=== PATIENT | female | born 1985 | race Caucasian/White ===

== ENCOUNTER 2017-05-18 00:04 | Observation (INO) ==
[2017-05-18 03:44] LABS: Basophils % 0.2 %; Eosinophils # 0.1 K/mcL (0.0-0.6); Eosinophils % 1.2 %; Hematocrit 29.2 % (35.3-44.9); Hemoglobin 9.6 g/dL (11.5-15.4); Immature Granulocytes % 0.3 % (0-4); Lymphocytes # 1.5 K/mcL (0.6-4.6); Lymphocytes % 26.3 %; Mean Corpuscular HGB Conc 32.9 g/dL (31.6-35.5); Mean Corpuscular Hemoglobin 27.7 pg (28.0-33.3); Mean Corpuscular Volume 84.1 fL (83.0-100.0); Mean Platelet Volume 12.9 fL (9.4-12.4); Monocytes # 0.4 K/mcL (0.0-1.3); Monocytes % 6.7 %; Neutrophils # 3.8 K/mcL (1.6-8.9); Platelet Count 224 K/mcL (140-400); Red Blood Count 3.47 M/mcL (3.82-4.97); Red Cell Distribution Width 13.2 % (11.5-14.5); Segmented Neutrophils % 65.3 %
[2017-05-18 03:51] LABS: INR 1.4; Prothrombin Time 14.8 Seconds (9.4-12.1)
[2017-05-18 03:54] LABS: Activated Partial Thrombo Time 32.2 Seconds (26.0-36.0)
[2017-05-18 04:00] LABS: Calcium 8.1 mg/dL (8.6-10.8); Carbon Dioxide 20 mEq/L (19-29); Chloride 109 mEq/L (98-109); Glucose 95 mg/dL (70-99); Osmolality,Calculated 286 (280-300); Potassium 3.3 mEq/L (3.5-4.5); Sodium 140 mEq/L (136-145); eGFR For African Americans > 60 (> 60); eGFR For Non-African Americans > 60 (> 60)
[2017-05-18 04:28] LABS: BUN/Creatinine Ratio 5 (6-26)
[2017-05-18 04:29] LABS: Blood Urea Nitrogen 3 mg/dL (7-20)
--- NOTE | 2017-05-18 04:39 | Emergency Department Note ---
Disposition Clinical Impression: Endocarditis Qualifiers: Endocarditis type: infective Infective endocarditis organism: bacterial Chronicity: acute Qualified Code(s): I33.0 - Acute and subacute infective endocarditis Disposition: Admitted As Inpatient Condition: Fair General Adult HPI - General Chief complaint: ED General Medical Stated complaint: blood infection fluid around heart Time Seen by Provider: 05/18/17 04:26 Source: patient Limitations: no limitations Nursing Notes Reviewed: Yes Vital Signs Reviewed: Yes - History of Present Illness HPI Narrative: Patient here for evaluation of chest pain and concern for about infection in her bloodstream. She states she was seen at [facility] and told she had an infection on her heart valves and around her heart. Patient left AMA secondary to the way she was treated. Patient has had a prolonged stay secondary to initial waiting room times however we are currently obtaining her records in order to know which antibiotics she needs to be placed on. Patient will likely need admitted to the hospital for further evaluation and antibiotic management. Symptoms started approximately 5 days ago when she presented to [facility]. Rather constant in nature. Worse with inspirations. Decreased exertional capacity. Pain Scale: 1 - Related Data Previous Rx's Medication Instructions Recorded Clindamycin HCl [Cleocin HCl] 300 mg PO TID #21 cap 02/15/16 Acetaminophen w/Cod 300-30 mg 1 - 2 each PO Q6HR #20 tablet 02/12/17 [Tylenol w/Codeine #3] Naproxen [Naprosyn] 500 mg PO BID #20 tablet 02/12/17 Allergies Allergy/AdvReac Type Severity Reaction Status Date / Time No Known Allergies Allergy Verified 02/12/17 02:58 Review of Systems: CONSTITUTIONAL: Fevers and chills with associated fatigue; No weight loss HEENT: Eyes: No visual changes. Ears, Nose, Throat: No hearing loss, difficulty talking or unable to swallow. SKIN: No rash or itching. CARDIOVASCULAR: Chest pain RESPIRATORY: shortness of breath, No cough or sputum. GASTROINTESTINAL: No anorexia, nausea, vomiting or diarrhea. No abdominal pain or blood. GENITOURINARY: No burning on urination or hematuria. NEUROLOGICAL: No headache, dizziness, syncope, paralysis, ataxia, numbness or tingling in the extremities. No change in bowel or bladder control. MUSCULOSKELETAL: No muscle pain, back pain, joint pain or stiffness. Past Medical History - Past Medical History Medical history: Reports: no medical history Psychiatric history: Reports: no psych history FOUNDER AND CHIEF EXECUTIVE OFFICER history: Reports: no FOUNDER AND CHIEF EXECUTIVE OFFICER history - Social History Smoking Status: Current every day smoker Smokeless Tobacco Status: No Alcohol use: Reports: none Drug use: Reports: methamphetamine, IVDU, other Physical Exam General appearance: NAD, conversant Eyes: anicteric sclerae, moist conjunctivae; PERRL HENT: Atraumatic; oropharynx clear with moist mucous membranes and no mucosal ulcerations Neck: Normal inspection; Trachea midline; FROM, supple Lungs: CTA, with normal respiratory effort and no intercostal retractions CV: RRR, no MRGs Abdomen: Soft, non-tender; no rebound or gaurding Extremities: No peripheral edema or extremity lymphadenopathy Skin: Normal temperature; no rash, ulcers or lesions Psych: Appropriate mood and affect Neuro: alert and oriented to person, place and time - General Limitations: no limitations General appearance: alert, in no apparent distress Course - Reevaluation(s) Reevaluation #1: Multiple attempts were then made to obtain the patient's records from [facility]. We have been unsuccessful. This time. Due to the patient's history as well as concern for endocarditis. Blood cultures been drawn, antibiotics started. Patient will need to undergo further workup within the hospital. She will be admitted for further evaluation. - Consultations Consultation #1: Discussed with Dr. Kwan. We are still awaiting records that the patient can be brought into the hospital for further evaluation and treatment. Vital Signs Temperature 97.5 F L 05/18/17 00:07 Pulse Rate 89 05/18/17 00:07 Respiratory Rate 18 05/18/17 00:07 Blood Pressure 105/70 05/18/17 00:07 O2 Sat by Pulse Oximetry 98 05/18/17 00:07 Temperature 97.5 F L 05/18/17 00:07 Pulse Rate 100 05/18/17 06:32 Respiratory Rate 20 05/18/17 06:32 Blood Pressure 108/72 05/18/17 06:32 O2 Sat by Pulse Oximetry 98 05/18/17 06:32 Oxygen Delivery Oxygen Delivery Room Air Medical Decision Making - Lab Data Result diagrams: 05/18/17 03:37 05/18/17 03:37 Lab Results 05/18/17 05/18/17 05/18/17 Range/Units 03:37 03:37 03:37 WBC 5.8 (4.3-11.1) K/mcL RBC 3.47 L (3.82-4.97) M/mcL Hgb 9.6 L (11.5-15.4) g/dL Hct 29.2 L (35.3-44.9) % MCV 84.1 (83.0-100.0) fL MCH 27.7 L (28.0-33.3) pg MCHC 32.9 (31.6-35.5) g/dL RDW 13.2 (11.5-14.5) % Plt Count 224 (140-400) K/mcL MPV 12.9 H (9.4-12.4) fL Immature Gran % 0.3 (0-4) % Seg Neutrophils % 65.3 % Lymphocytes % 26.3 % Monocytes % 6.7 % Eosinophils % 1.2 % Basophils % 0.2 % Neutrophils # 3.8 (1.6-8.9) K/mcL Lymphocytes # 1.5 (0.6-4.6) K/mcL Monocytes # 0.4 (0.0-1.3) K/mcL Eosinophils # 0.1 (0.0-0.6) K/mcL Basophils # 0.0 (0.0-0.2) K/mcL PT 14.8 H (9.4-12.1) Seconds INR 1.4 APTT 32.2 (26.0-36.0) Seconds Sodium 140 (136-145) mEq/L Potassium 3.3 L (3.5-4.5) mEq/L Chloride 109 (98-109) mEq/L Carbon Dioxide 20 (19-29) mEq/L BUN 3 L (7-20) mg/dL Creatinine 0.65 (0.57-1.11) mg/dL Est GFR ( Amer) > 60 (> 60) Est GFR (Non-Af Amer) > 60 (> 60) BUN/Creatinine Ratio 5 L (6-26) Glucose 95 (70-99) mg/dL Calculated Osmolality 286 (280-300) Calcium 8.1 L (8.6-10.8) mg/dL Troponin I (0-0.03) ng/mL 05/18/17 Range/Units 03:37 WBC (4.3-11.1) K/mcL RBC (3.82-4.97) M/mcL Hgb (11.5-15.4) g/dL Hct (35.3-44.9) % MCV (83.0-100.0) fL MCH (28.0-33.3) pg MCHC (31.6-35.5) g/dL RDW (11.5-14.5) % Plt Count (140-400) K/mcL MPV (9.4-12.4) fL Immature Gran % (0-4) % Seg Neutrophils % % Lymphocytes % % Monocytes % % Eosinophils % % Basophils % % Neutrophils # (1.6-8.9) K/mcL Lymphocytes # (0.6-4.6) K/mcL Monocytes # (0.0-1.3) K/mcL Eosinophils # (0.0-0.6) K/mcL Basophils # (0.0-0.2) K/mcL PT (9.4-12.1) Seconds INR APTT (26.0-36.0) Seconds Sodium (136-145) mEq/L Potassium (3.5-4.5) mEq/L Chloride (98-109) mEq/L Carbon Dioxide (19-29) mEq/L BUN (7-20) mg/dL Creatinine (0.57-1.11) mg/dL Est GFR ( Amer) (> 60) Est GFR (Non-Af Amer) (> 60) BUN/Creatinine Ratio (6-26) Glucose (70-99) mg/dL Calculated Osmolality (280-300) Calcium (8.6-10.8) mg/dL Troponin I 0.02 (0-0.03) ng/mL Attestation Statement - Attestation Attestation: I, Glen Dominguez MD, personally evaluated this patient and discussed their management with the resident physician. I reviewed the resident's note and agree with the documented findings, medical decision making, and plan of care. 31-year-old female presents to the emergency department complaining of chest pain or shortness of breath. Patient was just recently admitted at [facility] for bacterial endocarditis. She left AMA yesterday and apparently eloped as she still had IVs in place when she arrived here. She states she was having chills and fevers and chest pain and they found infection in her blood that was in her heart and around the valves. She is an IV drug user. She states that they treated her badly at [facility] and she refuses to go back there. On examination patient is a well-developed thin female in no acute distress. She is alert and oriented 3. There is no cyanosis or diaphoresis. Chest is nontender to palpation. Breath sounds are clear and equal bilaterally. Heart regular rate and rhythm. Abdomen soft and nontender with normal bowel sounds. Labs reviewed. The hospitalist, Dr. Kwan, was consulted and accepted admission of the patient.
[2017-05-18] MEDS ORDERED: Piperacillin/Tazobactam 3.375 GM in D5% in Water (Mini-Bag+) 100 ML IVPB ONE (05:54)
[2017-05-18] MEDS ORDERED: Vancomycin 1,000 MG in D5% in Water 250 ML IVPB ONE (05:54)
[2017-05-18] MEDS ORDERED: Acetaminophen 325 MG TABLET PO PRN (07:34)
[2017-05-18] MEDS ORDERED: Naloxone 0.4 MG/ML INJ IVP PRN (07:34)
[2017-05-18 08:19] VITALS: BP 128/80
[2017-05-18] MEDS ORDERED: *HR* LORazepam 2 MG/ML VIAL IVP PRN (08:35)
[2017-05-18] MEDS ORDERED: diazePAM 5 MG TABLET PO PRN (08:35)
[2017-05-18] MEDS ORDERED: *HR* Morphine 2 MG/ML SYRINGE IVP PRN (08:36)
--- NOTE | 2017-05-18 08:45 | Internal Med History&Physical ---
Date of Encounter: 05/18/17 Time of Encounter: 08:20 Assessment and Plan (1) Endocarditis Current visit: Yes Status: Acute Will treat with IV antibiotics. In the process of obtaining records from [facility] to review patient's hospital stay and confirm diagnosis and follow up on culture results. We will repeat blood cultures here. High risk for complications Qualifiers: Endocarditis type: infective Infective endocarditis organism: bacterial Chronicity: acute Qualified Code(s): I33.0 - Acute and subacute infective endocarditis (2) Pneumonia Current visit: Yes Status: Suspected We will treat with IV vancomycin based on chest x-ray findings. We will repeat chest x-ray for her to look for changes in improvement. O2 supplementation as needed. Follow blood cultures. Qualifiers: Pneumonia type: due to methicillin-resistant Staphylococcus aureus (MRSA) Laterality: right Lung location: lower lobe of lung Qualified Code(s): J15.212 - Pneumonia due to Methicillin resistant Staphylococcus aureus (3) Heroin abuse Current visit: Yes Status: Acute Patient with history of heroin abuse. Having withdrawal symptoms. We will treat with benzodiazepines. Internal Medicine - H&P: HPI Chief complaint: Was recently diagnosed with infection of heart valves Admitted From: Emergency Dept Plans for Post Hospital Care: Home History of present illness: Ms. Guthrie is a 31 year old female patient with a history of IV heroin abuse presented to the ER here after leaving the hospital at [facility] AGAINST MEDICAL ADVICE. She had apparently been admitted there with infection involving her heart valves. She was on IV antibiotics. She was also having bloodstream infection. She says she left because she was being restricted with limitations on her activities including using the bathroom. Currently she has some chest pain intermittently and is having symptoms of withdrawal including tremors and anxiety. Her last heroin use was about 3 days back just prior to admission to the hospital 2 days back. Past Med Surg Social Fam HX - Past Medical History Attestation: Yes The following information was validated with the patient. Source: patient Medical history: other (Infective endocarditis) Psychiatric history: no psych history - Social History Smoking Status: Current every day smoker Smokeless Tobacco Status: No Alcohol use: none Drug use: methamphetamine, IVDU, other - Additional Family History Additional family history: Reviewed and found to be noncontributory at this time Internal Medicine - H&P: Meds Clindamycin HCl [Cleocin HCl] 300 mg PO TID #21 cap 02/15/16 [Rx] Acetaminophen w/Cod 300-30 mg [Tylenol w/Codeine #3] 1 - 2 each PO Q6HR #20 tablet 02/12/17 [Rx] Naproxen [Naprosyn] 500 mg PO BID #20 tablet 02/12/17 [Rx] Allergies No Known Allergies Allergy (Verified 02/12/17 02:58) All Systems PM: A 10-system review of systems was performed and is negative for pertinent findings except as documented above in the HPI. - Constitutional Constitutional: no chills, no fever(s), no night sweats - EENT Eyes: no change in vision, no discharge, no pain, no photophobia Ears: no ear discharge, no ear pain, no tinnitus Nose, mouth and throat: no dysphagia, no nasal discharge, no neck pain, no sore throat - Cardiovascular Cardiovascular ROS IM: chest pain, no diaphoresis, no dyspnea, no lightheadedness, no palpitations, no syncope - Respiratory Respiratory: no cough, no dyspnea, no wheezing, no excessive phlegm production - Gastrointestinal Gastrointestinal: no abdominal pain, no diarrhea, no hematemesis, no hematochezia, no melena, no nausea, no vomiting - Genitourinary Genitourinary: no change in urinary stream, no dysuria, no flank pain, no hematuria - Musculoskeletal Musculoskeletal ROS IM: no numbness, no tingling - Integumentary Integumentary IM: no rash, no unusual bruising - Neurological Neurological ROS: tremor(s) - Psychiatric Psychiatric: anxiety - Hematologic/Lymphatic Hematologic/Lymphatic: no easy bruising - Constitutional Vitals: Temp Pulse Resp BP Pulse Ox 98.3 F 83 16 128/80 93 05/18/17 08:18 05/18/17 08:18 05/18/17 08:18 05/18/17 08:18 05/18/17 08:18 General appearance: Present: cooperative, mild distress, A&O X 3, answers questions appropriately - Eye Eye exam: Present: EOMI, PERRL, conjuntiva pink, sclera anicteric - Neck Neck exam general surgery: Present: supple, trachea midline. Absent: lymphadenopathy - Respiratory Respiratory exam: Present: CTAB. Absent: accessory muscle use, rales, rhonchi, wheezes - Cardiovascular Cardiovascular exam: Present: RRR, +S1, +S2. Absent: diastolic murmur, gallop, rubs, systolic murmur - GI/Abdominal GI/Abdominal exam: Present: normal bowel sounds, soft, no peritoneal signs. Absent: distended, tenderness - Extremities Exam Extremities exam: Present: warm, radial pulses palpable and symetrical. Absent : calf tenderness, cyanotic, pedal edema - Neurological Exam Neurological exam: Present: alert, oriented X3, no focal deficits. Absent: facial droop, speech deficit Additional comments: Bilateral tremors present - Skin Skin exam: Present: dry, intact Additional comments: Multiple skin lesions at sites of IV injection Internal Med - H&P Results - Labs CBC & Chem 7: 05/18/17 03:37 05/18/17 03:37 - Impressions Impressions Chest X-Ray 05/18/17 05:06 IMPRESSION: Right pleural effusion with adjacent atelectasis or pneumonia. D/ / Juan Ellis MD / Juan Ellis MD Interpreting Provider: Juan Ellis MD
[2017-05-18 08:50] LABS: Amphetamine Screen,Urine Negative ng/mL (Cutoff=1000); Barbiturate Screen,Urine Negative ng/mL (Cutoff=200); Benzodiazepines Screen,Urine Positive ng/mL (Cutoff=200); Cannabinoid Screen,Urine Negative ng/mL (Cutoff = 50); Cocaine Screen,Urine Positive ng/mL (Cutoff= 300); Opiate Screen,Urine Positive ng/mL (Cutoff=300); Phencyclidine Screen,Urine Negative ng/mL (Cutoff=25)
[2017-05-18] MEDS ORDERED: *HR* Enoxaparin 40 MG/0.4 ML SYRINGE SQ SCH (09:02)
[2017-05-18] MEDS ORDERED: Piperacillin/Tazobactam 3.375 GM in D5% in Water (Mini-Bag+) 100 ML IVPB SCH (17:00)
[2017-05-19 03:12] LABS: mecA Methicillin-Resist Gene Not Detected (Not Detect)
[2017-05-19 03:14] LABS: Acinetobacter baumannii by PCR Not Detected (Not Detect); Candida albicans by PCR Not Detected (Not Detect); Candida glabrata by PCR Not Detected (Not Detect); Candida krusei by PCR Not Detected (Not Detect); Candida parapsilosis by PCR Not Detected (Not Detect); Candida tropicalis by PCR Not Detected (Not Detect); Enterococcus by PCR Not Detected (Not Detect); Escherichia coli by PCR Not Detected (Not Detect); Klebsiella oxytoca by PCR Not Detected (Not Detect); Klebsiella pneumoniae by PCR Not Detected (Not Detect); Pseudomonas aeruginosa by PCR Not Detected (Not Detect); Serratia marcescens by PCR Not Detected (Not Detect); Staphylococcus aureus by PCR ***DETECTED*** (Not Detect); Streptococcus agalactiae(B)PCR Not Detected (Not Detect); Streptococcus by PCR Not Detected (Not Detect); Streptococcus pneumoniae PCR Not Detected (Not Detect); Streptococcus pyogenes (A) PCR Not Detected (Not Detect)
[2017-05-19] MEDS ORDERED: Vancomycin 1,000 MG in D5% in Water 250 ML IVPB SCH (09:00)
== END 2017-05-18 11:35 | disposition left against medical advice (07) ==
LOC: 3BNU 00:04 → EMEROO 00:04 → 3BNU 07:43
PROVIDERS: ADMIT Internal Medicine Sleep Medicine; ATTEND Registered Nurse

== ENCOUNTER 2017-05-19 23:59 | Inpatient (IN) ==
[2017-05-20 01:14] LABS: Basophils % 0.4 %; Eosinophils # 0.1 K/mcL (0.0-0.6); Eosinophils % 1.8 %; Hematocrit 30.2 % (35.3-44.9); Hemoglobin 9.5 g/dL (11.5-15.4); Immature Granulocytes % 1.5 % (0-4); Lymphocytes # 1.8 K/mcL (0.6-4.6); Lymphocytes % 32.4 %; Mean Corpuscular HGB Conc 31.5 g/dL (31.6-35.5); Mean Corpuscular Hemoglobin 27.1 pg (28.0-33.3); Mean Platelet Volume 11.8 fL (9.4-12.4); Monocytes # 0.4 K/mcL (0.0-1.3); Monocytes % 7.4 %; Neutrophils # 3.1 K/mcL (1.6-8.9); Nucleated Red Blood Cells 0.4 /100 WBC (0); Platelet Count 266 K/mcL (140-400); Red Blood Count 3.51 M/mcL (3.82-4.97); Red Cell Distribution Width 13.4 % (11.5-14.5); Segmented Neutrophils % 56.5 %
[2017-05-20 01:30] LABS: Alanine Aminotransferase 11 Units/L (0-55); Albumin 2.6 g/dL (3.5-5.0); Albumin/Globulin Ratio 0.5 (1.1-2.2); Alkaline Phosphatase 77 Units/L (38-126); Aspartate Amino Transferase 14 Units/L (5-34); BUN/Creatinine Ratio 7 (6-26); Bilirubin,Total 0.3 mg/dL (0.2-1.2); Blood Urea Nitrogen 5 mg/dL (7-20); Calcium 8.8 mg/dL (8.6-10.8); Carbon Dioxide 20 mEq/L (19-29); Chloride 111 mEq/L (98-109); Globulin 4.8 g/dL (2.4-3.5); Glucose 92 mg/dL (70-99); Osmolality,Calculated 293 (280-300); Potassium 3.3 mEq/L (3.5-4.5); Sodium 143 mEq/L (136-145); Total Protein 7.4 g/dL (6.0-8.3); eGFR For African Americans > 60 (> 60); eGFR For Non-African Americans > 60 (> 60)
[2017-05-20] MEDS ORDERED: Vancomycin 1,000 MG in D5% in Water 250 ML IVPB ONE (03:34)
--- NOTE | 2017-05-20 03:47 | Emergency Department Note ---
Disposition Clinical Impression: Heroin abuse Endocarditis Qualifiers: Endocarditis type: infective Infective endocarditis organism: bacterial Chronicity: acute Qualified Code(s): I33.0 - Acute and subacute infective endocarditis Pneumonia involving right lung Qualifiers: Pneumonia type: due to unspecified organism Lung location: lower lobe of lung Qualified Code(s): J18.1 - Lobar pneumonia, unspecified organism Disposition: Admitted As Inpatient Condition: Serious General Adult HPI - General Chief complaint: ED General Medical Stated complaint: GENERAL Time Seen by Provider: 05/20/17 03:21 Source: patient, family Mode of arrival: private vehicle Limitations: no limitations Nursing Notes Reviewed: Yes Vital Signs Reviewed: Yes - History of Present Illness Pt Subjective Complaint: "I need IV antibiotics so I won't " Hx of endocarditis, CP Onset (ago): week(s) Location: chest Radiation: non-radiation Pain Severity: severe Pain Scale: 10 Quality: stabbing, aching, sharp Consistency: constant Improves with: nothing Worsens with: nothing Associated symptoms: Reports: chest pain, cough, fever/chills, malaise, shortness of breath. Denies: confusion, diaphoresis, headaches, loss of appetite, nausea/vomiting, rash, seizure, syncope, weakness Treatments Prior to Arrival: other (IV vancomycin at [facility] last week and then also yesterday at [place]) - Related Data Home Medications Medication Instructions Recorded Confirmed No Known Home Drugs 05/18/17 05/18/17 Allergies Allergy/AdvReac Type Severity Reaction Status Date / Time No Known Allergies Allergy Verified 02/12/17 02:58 All systems ED: reviewed and negative except as stated. Constitutional: Reports: fever. Denies: chills, weakness, weight change, night sweats Eyes: Denies: eye pain, eye discharge, vision change Cardiovascular: Reports: as per HPI, chest pain, dyspnea on exertion, orthopnea. Denies: palpitations, edema, syncope Respiratory: Reports: cough, dyspnea. Denies: wheezes, hemoptysis, stridor Gastrointestinal: Denies: abdominal pain, nausea, vomiting Genitourinary: Denies: urgency, dysuria, frequency, hematuria Musculoskeletal: Denies: back pain, neck pain, joint swelling Integumentary: Denies: rash, abrasion, lesions Neurological: Denies: headache, weakness, confusion, abnormal gait, vertigo Hematological/Lymphatic: Denies: easy bleeding, easy bruising Past Medical History - Past Medical History Attestation: Yes The following information was validated with the patient. Source: patient Medical history: Reports: other Psychiatric history: Reports: no psych history CELL ROOM OPERATOR history: Reports: no CELL ROOM OPERATOR history - Social History Smoking Status: Current every day smoker Smokeless Tobacco Status: No Alcohol use: Reports: occasionally Drug use: Reports: methamphetamine, IVDU, other Physical Exam - General Limitations: no limitations General appearance: alert, in no apparent distress - Head Head exam: atraumatic, normocephalic, normal inspection - Eye Eye exam: Present: normal appearance, PERRL. Absent: scleral icterus, conjunctival injection, periorbital swelling - ENT ENT exam: mucous membranes dry - Neck Neck exam: Present: normal inspection, full ROM, trachea midline. Absent: meningismus - Chest Chest inspection: Present: normal inspection - Respiratory Respiratory exam: Absent: respiratory distress, wheezes, stridor - Expanded Respiratory Exam Location: rales: Left, Right, Lower - Cardiovascular Cardiovascular exam: Present: regular rate, normal rhythm, systolic murmur - Abdominal Exam Abdominal exam: Present: soft, Non-Tender. Absent: guarding, mass - Extremities Exam Extremities exam: Present: full ROM, normal capillary refill, other (numerous track bradshaw) - Expanded Lower Extremity Exam Gait: observed and normal - Back Exam Back exam: Present: normal inspection - Neurological Exam Neurological exam: Present: alert, oriented X3, CN II-XII intact, normal gait - Psychiatric Psychiatric exam: Present: normal affect, normal mood - Skin Skin exam: Present: warm, dry, intact, normal color Course Vital Signs Temperature 98.5 F 05/20/17 00:32 Pulse Rate 85 05/20/17 00:32 Respiratory Rate 22 05/20/17 00:32 Blood Pressure 126/81 05/20/17 00:32 O2 Sat by Pulse Oximetry 98 05/20/17 00:32 Temperature 98.5 F 05/20/17 00:32 Pulse Rate 99 05/20/17 04:48 Respiratory Rate 22 05/20/17 05:23 Blood Pressure 0/0 05/20/17 05:23 O2 Sat by Pulse Oximetry 100 05/20/17 04:48 Oxygen Delivery Oxygen Delivery Room Air Medical Decision Making - Medical Records Medical records reviewed: Yes I reviewed the patient's medical records. - Lab Data Lab results reviewed: Yes I reviewed the patient's lab results. Lab results narrative: Laboratory Last Values WBC 5.4 K/mcL (4.3-11.1) 05/20/17 01:06 RBC 3.51 M/mcL (3.82-4.97) L 05/20/17 01:06 Hgb 9.5 g/dL (11.5-15.4) L 05/20/17 01:06 Hct 30.2 % (35.3-44.9) L 05/20/17 01:06 MCV 86.0 fL (83.0-100.0) 05/20/17 01:06 MCH 27.1 pg (28.0-33.3) L 05/20/17 01:06 MCHC 31.5 g/dL (31.6-35.5) L 05/20/17 01:06 RDW 13.4 % (11.5-14.5) 05/20/17 01:06 Plt Count 266 K/mcL (140-400) 05/20/17 01:06 MPV 11.8 fL (9.4-12.4) 05/20/17 01:06 Immature Gran % 1.5 % (0-4) 05/20/17 01:06 Seg Neutrophils % 56.5 % 05/20/17 01:06 Lymphocytes % 32.4 % 05/20/17 01:06 Monocytes % 7.4 % 05/20/17 01:06 Eosinophils % 1.8 % 05/20/17 01:06 Basophils % 0.4 % 05/20/17 01:06 Neutrophils # 3.1 K/mcL (1.6-8.9) 05/20/17 01:06 Lymphocytes # 1.8 K/mcL (0.6-4.6) 05/20/17 01:06 Monocytes # 0.4 K/mcL (0.0-1.3) 05/20/17 01:06 Eosinophils # 0.1 K/mcL (0.0-0.6) 05/20/17 01:06 Basophils # 0.0 K/mcL (0.0-0.2) 05/20/17 01:06 Nucleated RBCs/100 WBC 0.4 /100 WBC (0) H 05/20/17 01:06 Sodium 143 mEq/L (136-145) 05/20/17 01:06 Potassium 3.3 mEq/L (3.5-4.5) L 05/20/17 01:06 Chloride 111 mEq/L (98-109) H 05/20/17 01:06 Carbon Dioxide 20 mEq/L (19-29) 05/20/17 01:06 BUN 5 mg/dL (7-20) L 05/20/17 01:06 Creatinine 0.69 mg/dL (0.57-1.11) 05/20/17 01:06 Est GFR ( Amer) > 60 (> 60) 05/20/17 01:06 Est GFR (Non-Af Amer) > 60 (> 60) 05/20/17 01:06 BUN/Creatinine Ratio 7 (6-26) 05/20/17 01:06 Glucose 92 mg/dL (70-99) 05/20/17 01:06 Calculated Osmolality 293 (280-300) 05/20/17 01:06 Calcium 8.8 mg/dL (8.6-10.8) 05/20/17 01:06 Total Bilirubin 0.3 mg/dL (0.2-1.2) 05/20/17 01:06 AST 14 Units/L (5-34) 05/20/17 01:06 ALT 11 Units/L (0-55) 05/20/17 01:06 Alkaline Phosphatase 77 Units/L (38-126) 05/20/17 01:06 Serum Total Protein 7.4 g/dL (6.0-8.3) 05/20/17 01:06 Albumin 2.6 g/dL (3.5-5.0) L 05/20/17 01:06 Globulin 4.8 g/dL (2.4-3.5) H 05/20/17 01:06 Albumin/Globulin Ratio 0.5 (1.1-2.2) L 05/20/17 01:06 Result diagrams: 05/20/17 01:06 05/20/17 01:06 Lab Results 05/20/17 05/20/17 Range/Units 01:06 01:06 WBC 5.4 (4.3-11.1) K/mcL RBC 3.51 L (3.82-4.97) M/mcL Hgb 9.5 L (11.5-15.4) g/dL Hct 30.2 L (35.3-44.9) % MCV 86.0 (83.0-100.0) fL MCH 27.1 L (28.0-33.3) pg MCHC 31.5 L (31.6-35.5) g/dL RDW 13.4 (11.5-14.5) % Plt Count 266 (140-400) K/mcL MPV 11.8 (9.4-12.4) fL Immature Gran % 1.5 (0-4) % Seg Neutrophils % 56.5 % Lymphocytes % 32.4 % Monocytes % 7.4 % Eosinophils % 1.8 % Basophils % 0.4 % Neutrophils # 3.1 (1.6-8.9) K/mcL Lymphocytes # 1.8 (0.6-4.6) K/mcL Monocytes # 0.4 (0.0-1.3) K/mcL Eosinophils # 0.1 (0.0-0.6) K/mcL Basophils # 0.0 (0.0-0.2) K/mcL Nucleated RBCs/100 WBC 0.4 H (0) /100 WBC Sodium 143 (136-145) mEq/L Potassium 3.3 L (3.5-4.5) mEq/L Chloride 111 H (98-109) mEq/L Carbon Dioxide 20 (19-29) mEq/L BUN 5 L (7-20) mg/dL Creatinine 0.69 (0.57-1.11) mg/dL Est GFR ( Amer) > 60 (> 60) Est GFR (Non-Af Amer) > 60 (> 60) BUN/Creatinine Ratio 7 (6-26) Glucose 92 (70-99) mg/dL Calculated Osmolality 293 (280-300) Calcium 8.8 (8.6-10.8) mg/dL Total Bilirubin 0.3 (0.2-1.2) mg/dL AST 14 (5-34) Units/L ALT 11 (0-55) Units/L Alkaline Phosphatase 77 (38-126) Units/L Serum Total Protein 7.4 (6.0-8.3) g/dL Albumin 2.6 L (3.5-5.0) g/dL Globulin 4.8 H (2.4-3.5) g/dL Albumin/Globulin Ratio 0.5 L (1.1-2.2) - Radiology Data Radiology results reviewed: Yes I reviewed the patient's radiology results. Chest X-Ray 05/20/17 00:39 IMPRESSION: Right lower lobe consolidation and small right pleural effusion concerning for pneumonia. Recommend follow-up chest radiograph in 3-4 weeks after treatment to verify improvement. D/ / Marshall Boucher MD / Marshall Boucher MD Interpreting Provider: Marshall Boucher MD Attestation Statement - Attestation Attestation: I, Glen Dominguez MD, personally evaluated this patient and discussed their management with the midlevel provicer, PAC/RESERVATIONS SALES AGENT. I reviewed the midlevel provider 's note and agree with the documented findings, medical decision making, and plan of care. Patient is a 31-year-old female with known bacterial endocarditis who was admitted here a couple of days ago and and left AMA yesterday. She returns tonight complaining of sided chest pain. She was also previously at [facility] and left there AMA before being admitted here 2 days ago. On examination patient is a well-developed well-nourished female in no acute distress. She is alert and oriented 3. There is no cyanosis or diaphoresis. There is tenderness to palpation over the right upper anterior chest wall. Breath sounds are decreased but equal bilaterally. No definite rales or wheezes noted. Heart regular rate and rhythm. Abdomen soft and nontender with normal bowel sounds. Labs reviewed. X-ray shows right lower lobe pneumonia. The hospitalist, Dr. Ferris, was consulted and accepted admission of the patient.
[2017-05-20] MEDS ORDERED: *HR* LORazepam 2 MG/ML VIAL IVP ONE (04:44)
[2017-05-20] MEDS ORDERED: Ketorolac 15 MG/ML VIAL IVP ONE (04:44)
[2017-05-20] MEDS ORDERED: Naloxone 0.4 MG/ML INJ IVP PRN (07:35)
[2017-05-20] MEDS ORDERED: Acetaminophen 325 MG TABLET PO PRN (07:35)
[2017-05-20] MEDS ORDERED: *HR* LORazepam 2 MG/ML VIAL IVP PRN (07:42)
[2017-05-20] MEDS ORDERED: 0.9 % Sodium Chloride w KCl 20 MEQ/1,000 ML MLS IVC SCH (07:45)
[2017-05-20] MEDS ORDERED: Piperacillin/Tazobactam 3.375 GM in D5% in Water (Mini-Bag+) 100 ML IVPB SCH (08:00)
[2017-05-20] MEDS ORDERED: Levofloxacin 750 MG/150 ML 750 MG/150 ML BAG IVPB SCH (09:00)
--- NOTE | 2017-05-20 09:33 | Internal Med History&Physical ---
Date of Encounter: 05/20/17 Time of Encounter: 09:00 Assessment and Plan (1) Endocarditis Current visit: Yes Status: Acute Patient with history of recently diagnosed acute infective endocarditis due to IV drug abuse. Blood cultures from last hospitalization here positive for staph aureus and gram-negative rods. Will treat with IV antibiotics. High risk for complications. We will obtain records from [facility]. Qualifiers: Endocarditis type: infective Infective endocarditis organism: bacterial Chronicity: acute Qualified Code(s): I33.0 - Acute and subacute infective endocarditis (2) Pneumonia Current visit: Yes Status: Suspected Will treat with broad-spectrum antibiotics to the presence of right lower lobe pneumonia in setting of IV drug abuse, infective endocarditis. Follow blood cultures. Qualifiers: Pneumonia type: due to methicillin-resistant Staphylococcus aureus (MRSA) Laterality: right Lung location: lower lobe of lung Qualified Code(s): J15.212 - Pneumonia due to Methicillin resistant Staphylococcus aureus (3) Heroin abuse Current visit: Yes Status: Acute Patient with history of IV drug abuse. We will check urine tox screen. At risk for withdrawal. We will treat with Ativan as needed for withdrawal symptoms. 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 Internal Medicine - H&P: HPI Chief complaint: Chest pain Admitted From: Emergency Dept History of present illness: Ms. Guthrie is a 31 year old female patient with a history of IV drug abuse who had him admitted here couple of days back and had left the hospital AGAINST MEDICAL ADVICE. She was admitted here for possible infective endocarditis. She had been diagnosed with this condition at [facility] 2 days prior to her previous admission. She was admitted at [facility] then and had left AGAINST MEDICAL ADVICE from there also. She she is currently very somnolent and is difficult to keep her awake to answer questions. So history has been obtained through review of records. She had a bed to come to the ER complaining of chest pain and saying that she needed IV antibiotics. She had also been having some fever and chills. ED records state that while she was in the lobby waiting for the ER triage, she had apparently gone outside and was doing drugs in the parking lot. Patient is currently unable to confirm or deny this. Past Med Surg Social Fam HX - Past Medical History Attestation: Yes The following information was validated with the patient. Source: old records reviewed Medical history: other (Infective endocarditis) Psychiatric history: no psych history - Past Surgical History Surgical History: , hysterectomy - Social History Smoking Status: Current every day smoker Smokeless Tobacco Status: No Alcohol use: none Drug use: methamphetamine, IVDU, other - Family History Father Hx Family Endocrine Disorder: Yes (Diabetic) Internal Medicine - H&P: Meds No Known Home Drugs 05/18/17 [History] Allergies No Known Allergies Allergy (Verified 02/12/17 02:58) ROS unobtainable: due to mental status (Obtained through review of ED records as patient is very somnolent and not answering questions at this time) All Systems PM: A 10-system review of systems was performed and is negative for pertinent findings except as documented above in the HPI. - Constitutional Constitutional: chills, fever(s), malaise, no night sweats - EENT Eyes: no change in vision, no discharge, no pain, no photophobia Nose, mouth and throat: no dysphagia, no nasal discharge, no neck pain, no sore throat - Cardiovascular Cardiovascular ROS IM: chest pain, dyspnea, no diaphoresis, no lightheadedness, no palpitations, no syncope - Respiratory Respiratory: cough, no dyspnea, no wheezing, no excessive phlegm production - Gastrointestinal Gastrointestinal: no abdominal pain, no diarrhea, no hematemesis, no hematochezia, no melena, no nausea, no vomiting - Genitourinary Genitourinary: no change in urinary stream, no dysuria, no flank pain, no hematuria - Musculoskeletal Musculoskeletal ROS IM: no numbness, no tingling - Integumentary Integumentary IM: no rash, no unusual bruising - Neurological Neurological ROS: no confusion, no convulsions, no focal weakness, no numbness, no tingling, no tremor(s) - Hematologic/Lymphatic Hematologic/Lymphatic: no easy bruising - Constitutional Vitals: Temp Pulse Resp BP Pulse Ox 98.4 F 86 18 123/74 96 05/20/17 05:39 05/20/17 05:39 05/20/17 05:39 05/20/17 05:39 05/20/17 05:39 General appearance: Present: disheveled Exam: Patient is currently very somnolent and not able to answer questions. - Neck Neck exam general surgery: Present: supple, trachea midline. Absent: lymphadenopathy - Respiratory Respiratory exam: Present: prolonged expiratory phase, wheezes. Absent: accessory muscle use, rales, rhonchi Additional comments: Decreased breath sounds at the right lower lobe - Cardiovascular Cardiovascular exam: Present: RRR, +S1, +S2. Absent: diastolic murmur, gallop, rubs, systolic murmur - GI/Abdominal GI/Abdominal exam: Present: normal bowel sounds, soft, no peritoneal signs. Absent: distended, tenderness - Extremities Exam Extremities exam: Present: warm, radial pulses palpable and symetrical. Absent : calf tenderness, cyanotic, pedal edema - Neurological Exam Neurological exam: Present: altered. Absent: facial droop, speech deficit - Skin Additional comments: Multiple track bradshaw noted on skin with some scabs Internal Med - H&P Results - Labs CBC & Chem 7: 05/20/17 01:06 05/20/17 01:06 - Impressions Impressions Chest X-Ray 05/20/17 00:39 IMPRESSION: Right lower lobe consolidation and small right pleural effusion concerning for pneumonia. Recommend follow-up chest radiograph in 3-4 weeks after treatment to verify improvement. D/ / Marshall Boucher MD / Marshall Boucher MD Interpreting Provider: Marshall Boucher MD
[2017-05-20] MEDS: Nicotine 21 MG PATCH.TD24 TD SCH ×2 (10:46→12:40)
[2017-05-20 11:44] VITALS: BP 129/79
--- NOTE | 2017-05-20 15:13 | Electrocardiograph Report ---
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
[2017-05-20] MEDS ORDERED: Vancomycin 1,000 MG in D5% in Water 250 ML IVPB SCH (16:00)
--- NOTE | 2017-05-22 08:14 | Event Note ---
Date of Encounter: 05/22/17 Time of Encounter: 08:12 Patient with known endocarditis from IV who signed out AMA from [place], was admitted twice here and left AMA twice. Attention drawn to me of positive blood cultures Called patient on her cell phone on chart [phone], and left a voice message with my phone number, encouraging her to come to the ER and get treated and admitted I also called her next of kin per chart stated to be her mother on her home phone [phone] and left a message
== END 2017-05-20 13:12 | disposition left against medical advice (07) | DRG 193 ==
LOC: 2NENU 23:59 → EMEROO 23:59 → 2NENU 05-20 05:25
PROVIDERS: ADMIT Internal Medicine; ATTEND Internal Medicine

== ENCOUNTER 2017-09-08 18:02 | Inpatient (IN) ==
[~2017-09-08 18:02] MED LIST: Aminoglycoside Consult 1 EACH MC ONE
--- NOTE | 2017-09-08 18:26 | Emergency Department Note ---
Disposition Clinical Impression: Endocarditis, Heroin abuse, Septic arthritis of knee, left Disposition: Admitted As Inpatient Condition: Fair General Adult HPI - General Chief complaint: ED Shortness of Breath/Dyspnea Stated complaint: Left knee pain, fever, mejia, pain w/inspiration Time Seen by Provider: 09/08/17 18:20 Source: patient - History of Present Illness Pain Scale: 8 - Related Data Home Medications Medication Instructions Recorded Confirmed No Known Home Drugs 05/18/17 05/20/17 Allergies Allergy/AdvReac Type Severity Reaction Status Date / Time No Known Allergies Allergy Verified 09/08/17 18:14 Past Medical History - Past Medical History Medical history: Reports: hepatitis, other Surgical history: Reports: , hysterectomy Psychiatric history: Reports: 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: Reports: no 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 SET UP OPERATOR RADIAL history - Social History Smoking Status: Current every day smoker Smokeless Tobacco Status: No Alcohol use: Reports: none Drug use: Reports: cocaine, opiates, IV Drug Use, prescription drug abuse, other Physical Exam - General General appearance: alert Course Vital Signs Temperature 103 F H 09/08/17 18:17 Pulse Rate 114 09/08/17 18:17 Respiratory Rate 20 09/08/17 18:17 Blood Pressure 131/73 09/08/17 18:17 O2 Sat by Pulse Oximetry 94 09/08/17 18:17 Temperature 98.7 F 09/08/17 22:17 Pulse Rate 91 09/08/17 22:17 Respiratory Rate 18 09/08/17 22:17 Blood Pressure 90/43 09/08/17 22:17 O2 Sat by Pulse Oximetry 97 09/08/17 22:17 Oxygen Delivery Oxygen Delivery Room Air Medical Decision Making - Lab Data Result diagrams: 09/08/17 18:58 09/08/17 18:58 Lab Results 09/08/17 09/08/17 09/08/17 Range/Units 18:36 18:36 18:58 WBC 9.4 (4.3-11.1) K/mcL RBC 3.94 (3.82-4.97) M/mcL Hgb 10.2 L (11.5-15.4) g/dL Hct 31.7 L (35.3-44.9) % MCV 80.5 L (83.0-100.0) fL MCH 25.9 L (28.0-33.3) pg MCHC 32.2 (31.6-35.5) g/dL RDW 13.7 (11.5-14.5) % Plt Count 132 L (140-400) K/mcL MPV 12.7 H (9.4-12.4) fL Immature Gran % 0.6 (0-4) % Seg Neutrophils % 86.1 % Lymphocytes % 6.3 % Monocytes % 6.6 % Eosinophils % 0.2 % Basophils % 0.2 % Neutrophils # 8.1 (1.6-8.9) K/mcL Lymphocytes # 0.6 (0.6-4.6) K/mcL Monocytes # 0.6 (0.0-1.3) K/mcL Eosinophils # 0.0 (0.0-0.6) K/mcL Basophils # 0.0 (0.0-0.2) K/mcL ESR (0-15) mm/hr PT (9.4-12.1) Seconds INR APTT (26.0-36.0) Seconds Sodium (136-145) mEq/L Potassium (3.5-4.5) mEq/L Chloride (98-109) mEq/L Carbon Dioxide (19-29) mEq/L BUN (7-20) mg/dL Creatinine (0.57-1.11) mg/dL Est GFR ( Amer) (> 60) Est GFR (Non-Af Amer) (> 60) BUN/Creatinine Ratio (6-26) Glucose (70-99) mg/dL Calculated Osmolality (280-300) Lactic Acid (0.5-2.2) mmol/L Calcium (8.6-10.8) mg/dL Troponin I (0-0.03) ng/mL C-Reactive Protein (Less than 5) mg/L B-Natriuretic Peptide (0-100) pg/mL Urine Color Dark Yellow (Yellow) Urine Clarity Cloudy A (Clear) Urine pH 6.0 (5.0-8.0) pH Units Ur Specific [place] 1.019 (1.010-1.025) Urine Protein Trace (Neg-Trace) mg/dL Urine Glucose (UA) Normal (Normal) mg/dL Urine Ketones Negative (Negative) mg/dL Urine Blood Negative (Negative) Urine Nitrite Negative (Negative) Urine Bilirubin Small H (Negative) Urine Urobilinogen Normal (Normal) mg/dL Ur Leukocyte Esterase Trace H (Negative) Urine Microscopic RBC 0-3 (0-3) per hpf Urine Microscopic WBC 5-15 H (0-3) per hpf Ur Squamous Epith Cells Many H (None-Few) per lpf Amorphous Sediment Few (Few) Urine Bacteria None Seen (None-Few) per hpf Hyaline Casts None Seen (None-Few) per lpf Ur Culture Indicated? YES A (NO) Urine Opiates Screen Positive H (Uylczt=147) ng/mL Ur Barbiturates Screen Negative (Papmvp=287) ng/mL Ur Phencyclidine Scrn Negative (Cutoff=25) ng/mL Ur Amphetamines Screen Negative (Ucefeg=6230) ng/mL U Benzodiazepines Scrn Positive H (Srocwo=357) ng/mL Urine Cocaine Screen Positive H (Cutoff= 300) ng/mL U Marijuana (THC) Screen Negative (Cutoff = 50) ng/mL 09/08/17 09/08/17 09/08/17 Range/Units 18:58 18:58 18:58 WBC (4.3-11.1) K/mcL RBC (3.82-4.97) M/mcL Hgb (11.5-15.4) g/dL Hct (35.3-44.9) % MCV (83.0-100.0) fL MCH (28.0-33.3) pg MCHC (31.6-35.5) g/dL RDW (11.5-14.5) % Plt Count (140-400) K/mcL MPV (9.4-12.4) fL Immature Gran % (0-4) % Seg Neutrophils % % Lymphocytes % % Monocytes % % Eosinophils % % Basophils % % Neutrophils # (1.6-8.9) K/mcL Lymphocytes # (0.6-4.6) K/mcL Monocytes # (0.0-1.3) K/mcL Eosinophils # (0.0-0.6) K/mcL Basophils # (0.0-0.2) K/mcL ESR (0-15) mm/hr PT 14.5 H (9.4-12.1) Seconds INR 1.3 APTT 29.0 (26.0-36.0) Seconds Sodium 135 L (136-145) mEq/L Potassium 3.2 L (3.5-4.5) mEq/L Chloride 98 (98-109) mEq/L Carbon Dioxide 25 (19-29) mEq/L BUN 7 (7-20) mg/dL Creatinine 0.79 (0.57-1.11) mg/dL Est GFR ( Amer) > 60 (> 60) Est GFR (Non-Af Amer) > 60 (> 60) BUN/Creatinine Ratio 9 (6-26) Glucose 88 (70-99) mg/dL Calculated Osmolality 277 L (280-300) Lactic Acid 1.9 (0.5-2.2) mmol/L Calcium 8.7 (8.6-10.8) mg/dL Troponin I (0-0.03) ng/mL C-Reactive Protein 195 H (Less than 5) mg/L B-Natriuretic Peptide (0-100) pg/mL Urine Color (Yellow) Urine Clarity (Clear) Urine pH (5.0-8.0) pH Units Ur Specific [place] (1.010-1.025) Urine Protein (Neg-Trace) mg/dL Urine Glucose (UA) (Normal) mg/dL Urine Ketones (Negative) mg/dL Urine Blood (Negative) Urine Nitrite (Negative) Urine Bilirubin (Negative) Urine Urobilinogen (Normal) mg/dL Ur Leukocyte Esterase (Negative) Urine Microscopic RBC (0-3) per hpf Urine Microscopic WBC (0-3) per hpf Ur Squamous Epith Cells (None-Few) per lpf Amorphous Sediment (Few) Urine Bacteria (None-Few) per hpf Hyaline Casts (None-Few) per lpf Ur Culture Indicated? (NO) Urine Opiates Screen (Emvrac=266) ng/mL Ur Barbiturates Screen (Zckcng=161) ng/mL Ur Phencyclidine Scrn (Cutoff=25) ng/mL Ur Amphetamines Screen (Mbxbxp=0190) ng/mL U Benzodiazepines Scrn (Pjsbbp=606) ng/mL Urine Cocaine Screen (Cutoff= 300) ng/mL U Marijuana (THC) Screen (Cutoff = 50) ng/mL 09/08/17 09/08/17 09/08/17 Range/Units 18:58 18:58 18:58 WBC (4.3-11.1) K/mcL RBC (3.82-4.97) M/mcL Hgb (11.5-15.4) g/dL Hct (35.3-44.9) % MCV (83.0-100.0) fL MCH (28.0-33.3) pg MCHC (31.6-35.5) g/dL RDW (11.5-14.5) % Plt Count (140-400) K/mcL MPV (9.4-12.4) fL Immature Gran % (0-4) % Seg Neutrophils % % Lymphocytes % % Monocytes % % Eosinophils % % Basophils % % Neutrophils # (1.6-8.9) K/mcL Lymphocytes # (0.6-4.6) K/mcL Monocytes # (0.0-1.3) K/mcL Eosinophils # (0.0-0.6) K/mcL Basophils # (0.0-0.2) K/mcL ESR 128 H (0-15) mm/hr PT (9.4-12.1) Seconds INR APTT (26.0-36.0) Seconds Sodium (136-145) mEq/L Potassium (3.5-4.5) mEq/L Chloride (98-109) mEq/L Carbon Dioxide (19-29) mEq/L BUN (7-20) mg/dL Creatinine (0.57-1.11) mg/dL Est GFR ( Amer) (> 60) Est GFR (Non-Af Amer) (> 60) BUN/Creatinine Ratio (6-26) Glucose (70-99) mg/dL Calculated Osmolality (280-300) Lactic Acid (0.5-2.2) mmol/L Calcium (8.6-10.8) mg/dL Troponin I 0.00 (0-0.03) ng/mL C-Reactive Protein (Less than 5) mg/L B-Natriuretic Peptide < 10 (0-100) pg/mL Urine Color (Yellow) Urine Clarity (Clear) Urine pH (5.0-8.0) pH Units Ur Specific [place] (1.010-1.025) Urine Protein (Neg-Trace) mg/dL Urine Glucose (UA) (Normal) mg/dL Urine Ketones (Negative) mg/dL Urine Blood (Negative) Urine Nitrite (Negative) Urine Bilirubin (Negative) Urine Urobilinogen (Normal) mg/dL Ur Leukocyte Esterase (Negative) Urine Microscopic RBC (0-3) per hpf Urine Microscopic WBC (0-3) per hpf Ur Squamous Epith Cells (None-Few) per lpf Amorphous Sediment (Few) Urine Bacteria (None-Few) per hpf Hyaline Casts (None-Few) per lpf Ur Culture Indicated? (NO) Urine Opiates Screen (Xwjtrz=027) ng/mL Ur Barbiturates Screen (Ofcoku=558) ng/mL Ur Phencyclidine Scrn (Cutoff=25) ng/mL Ur Amphetamines Screen (Otekys=1219) ng/mL U Benzodiazepines Scrn (Tyfhbj=248) ng/mL Urine Cocaine Screen (Cutoff= 300) ng/mL U Marijuana (THC) Screen (Cutoff = 50) ng/mL Critical Care Time Critical Care Time: Yes Total Critical Care Time: 30 Attestation: Fever with history of IV drug use requiring broad-spectrum antibiotics and orthopedic consultation due to left knee swelling Attestation Statement - Attestation Attestation: I examined this patient and my medical decision-making was reviewed with the Resident Physician. I agree with the documented findings, disposition and treatment plan as described except to the extent set forth below. [id number] time provided Patient claims a fever, dyspnea, chills, body aches, knee pain. 8 year history of IV drug use. States she has been seen at "every hospital between here in [place]" but left AMA due to withdrawal symptoms. Was being treated for endocarditis. Appears older than stated age on exam. Febrile at triage. Concern for bacteremia 20:40: I discussed this case with the orthopedist electronic lab technician Dr. Glass phone. He recommended arthrocentesis and left knee x-ray. The patient refuses left knee arthrocentesis despite my discussion with her
--- NOTE | 2017-09-08 18:59 | Emergency Department Note ---
Disposition Clinical Impression: Endocarditis, Heroin abuse, Septic arthritis of knee, left Disposition: Admitted As Inpatient Condition: Fair Referrals: NONE,PCP [Primary Care Provider] - Forms: ED Satisfaction Letter Time of Disposition: 20:44 SOB HPI - General Chief Complaint: ED Shortness of Breath/Dyspnea Stated Complaint: Left knee pain, fever, mejai, pain w/inspiration Time Seen by Provider: 09/08/17 18:20 Source: patient Mode of arrival: ambulatory Limitations: no limitations Nursing Notes Reviewed: Yes Vital Signs Reviewed: Yes - History of Present Illness Patient presents to the ED with a 5 day history of pleuritic chest pain, shortness of breath, fever. States she has a history of endocarditis from IV drug use. States she has been in and out of hospitals recently b/c she left AMA to use IV drugs while being treated for endocarditis. States that she feels like she may have another infection. She states that "I use more drugs than anybody and no" and continues to use. Also complaining of left knee pain during this timeframe as well. Denies any injury. - Related Data Home Medications Medication Instructions Recorded Confirmed No Known Home Drugs 05/18/17 05/20/17 Allergies Allergy/AdvReac Type Severity Reaction Status Date / Time No Known Allergies Allergy Verified 09/08/17 18:14 All systems ED: reviewed and negative except as stated. Constitutional: Reports: fever Cardiovascular: Reports: chest pain, palpitations, dyspnea on exertion Respiratory: Reports: dyspnea Gastrointestinal: Denies: vomiting Musculoskeletal: Reports: as per HPI Integumentary: Reports: as per HPI Neurological: Denies: headache Past Medical History - Past Medical History Attestation: Yes The following information was validated with the patient. 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: Reports: no SPECIAL EDUCATION ADMINISTRATOR history - Social History Smoking Status: Current every day smoker Smokeless Tobacco Status: No Alcohol use: Reports: none Drug use: Reports: cocaine, opiates, IV Drug Use, prescription drug abuse, other Physical Exam - General Limitations: no limitations General appearance: alert, anxious - Head Head exam: atraumatic, normocephalic, normal inspection - Eye Eye exam: Present: normal appearance, PERRL, EOMI - Chest Chest inspection: Present: normal inspection, symmetric chest wall rise - Respiratory Respiratory exam: Present: normal lung sounds bilaterally. Absent: respiratory distress - Cardiovascular Cardiovascular exam: Present: normal rhythm, tachycardia - Abdominal Exam Abdominal exam: Present: soft, Non-Tender. Absent: tenderness, distention, guarding, rebound, rigidity - Extremities Exam Extremities exam: Present: normal inspection, full ROM, tenderness (mild L knee tenderness, no effusion or sign of infection ) - Expanded Lower Extremity Exam Hip/Pelvis exam: Present: pelvis stable Knee exam: Present: tenderness (diffuse on L), swelling (L), erythema (L), effusion (moderate ). Absent: normal inspection - Neurological Exam Neurological exam: Present: alert, oriented X3 - Psychiatric Psychiatric exam: Present: normal affect, normal mood - Skin Skin exam: Present: warm, dry, intact, normal color Course Vital Signs Temperature 103 F H 09/08/17 18:17 Pulse Rate 114 09/08/17 18:17 Respiratory Rate 20 09/08/17 18:17 Blood Pressure 131/73 09/08/17 18:17 O2 Sat by Pulse Oximetry 94 09/08/17 18:17 Temperature 103 F H 09/08/17 18:17 Pulse Rate 109 09/08/17 19:53 Respiratory Rate 22 09/08/17 19:53 Blood Pressure 122/65 09/08/17 19:53 O2 Sat by Pulse Oximetry 97 09/08/17 19:53 Oxygen Delivery Oxygen Delivery Room Air Shortness of Breath/Dyspnea - Lab Data Result diagrams: 09/08/17 18:58 09/08/17 18:58 Lab Results 09/08/17 09/08/17 09/08/17 Range/Units 18:58 18:58 18:58 WBC 9.4 (4.3-11.1) K/mcL RBC 3.94 (3.82-4.97) M/mcL Hgb 10.2 L (11.5-15.4) g/dL Hct 31.7 L (35.3-44.9) % MCV 80.5 L (83.0-100.0) fL MCH 25.9 L (28.0-33.3) pg MCHC 32.2 (31.6-35.5) g/dL RDW 13.7 (11.5-14.5) % Plt Count 132 L (140-400) K/mcL MPV 12.7 H (9.4-12.4) fL Immature Gran % 0.6 (0-4) % Seg Neutrophils % 86.1 % Lymphocytes % 6.3 % Monocytes % 6.6 % Eosinophils % 0.2 % Basophils % 0.2 % Neutrophils # 8.1 (1.6-8.9) K/mcL Lymphocytes # 0.6 (0.6-4.6) K/mcL Monocytes # 0.6 (0.0-1.3) K/mcL Eosinophils # 0.0 (0.0-0.6) K/mcL Basophils # 0.0 (0.0-0.2) K/mcL ESR (0-15) mm/hr PT 14.5 H (9.4-12.1) Seconds INR 1.3 APTT 29.0 (26.0-36.0) Seconds Sodium 135 L (136-145) mEq/L Potassium 3.2 L (3.5-4.5) mEq/L Chloride 98 (98-109) mEq/L Carbon Dioxide 25 (19-29) mEq/L BUN 7 (7-20) mg/dL Creatinine 0.79 (0.57-1.11) mg/dL Est GFR ( Amer) > 60 (> 60) Est GFR (Non-Af Amer) > 60 (> 60) BUN/Creatinine Ratio 9 (6-26) Glucose 88 (70-99) mg/dL Calculated Osmolality 277 L (280-300) Lactic Acid (0.5-2.2) mmol/L Calcium 8.7 (8.6-10.8) mg/dL Troponin I (0-0.03) ng/mL C-Reactive Protein 195 H (Less than 5) mg/L B-Natriuretic Peptide (0-100) pg/mL 09/08/17 09/08/17 09/08/17 Range/Units 18:58 18:58 18:58 WBC (4.3-11.1) K/mcL RBC (3.82-4.97) M/mcL Hgb (11.5-15.4) g/dL Hct (35.3-44.9) % MCV (83.0-100.0) fL MCH (28.0-33.3) pg MCHC (31.6-35.5) g/dL RDW (11.5-14.5) % Plt Count (140-400) K/mcL MPV (9.4-12.4) fL Immature Gran % (0-4) % Seg Neutrophils % % Lymphocytes % % Monocytes % % Eosinophils % % Basophils % % Neutrophils # (1.6-8.9) K/mcL Lymphocytes # (0.6-4.6) K/mcL Monocytes # (0.0-1.3) K/mcL Eosinophils # (0.0-0.6) K/mcL Basophils # (0.0-0.2) K/mcL ESR (0-15) mm/hr PT (9.4-12.1) Seconds INR APTT (26.0-36.0) Seconds Sodium (136-145) mEq/L Potassium (3.5-4.5) mEq/L Chloride (98-109) mEq/L Carbon Dioxide (19-29) mEq/L BUN (7-20) mg/dL Creatinine (0.57-1.11) mg/dL Est GFR ( Amer) (> 60) Est GFR (Non-Af Amer) (> 60) BUN/Creatinine Ratio (6-26) Glucose (70-99) mg/dL Calculated Osmolality (280-300) Lactic Acid 1.9 (0.5-2.2) mmol/L Calcium (8.6-10.8) mg/dL Troponin I 0.00 (0-0.03) ng/mL C-Reactive Protein (Less than 5) mg/L B-Natriuretic Peptide < 10 (0-100) pg/mL 09/08/17 Range/Units 18:58 WBC (4.3-11.1) K/mcL RBC (3.82-4.97) M/mcL Hgb (11.5-15.4) g/dL Hct (35.3-44.9) % MCV (83.0-100.0) fL MCH (28.0-33.3) pg MCHC (31.6-35.5) g/dL RDW (11.5-14.5) % Plt Count (140-400) K/mcL MPV (9.4-12.4) fL Immature Gran % (0-4) % Seg Neutrophils % % Lymphocytes % % Monocytes % % Eosinophils % % Basophils % % Neutrophils # (1.6-8.9) K/mcL Lymphocytes # (0.6-4.6) K/mcL Monocytes # (0.0-1.3) K/mcL Eosinophils # (0.0-0.6) K/mcL Basophils # (0.0-0.2) K/mcL ESR 128 H (0-15) mm/hr PT (9.4-12.1) Seconds INR APTT (26.0-36.0) Seconds Sodium (136-145) mEq/L Potassium (3.5-4.5) mEq/L Chloride (98-109) mEq/L Carbon Dioxide (19-29) mEq/L BUN (7-20) mg/dL Creatinine (0.57-1.11) mg/dL Est GFR ( Amer) (> 60) Est GFR (Non-Af Amer) (> 60) BUN/Creatinine Ratio (6-26) Glucose (70-99) mg/dL Calculated Osmolality (280-300) Lactic Acid (0.5-2.2) mmol/L Calcium (8.6-10.8) mg/dL Troponin I (0-0.03) ng/mL C-Reactive Protein (Less than 5) mg/L B-Natriuretic Peptide (0-100) pg/mL S.B.A.R. - S.B.AAlessandro Situation: Demographics, MOA Background: Presenting Complaint, Relevant PMH, Meds, & Allergies Assessment: Vital Signs, Course and respsone to treatment, Exam Concerns, Patient/Family Expectation, Pertinant Lab Results, Outstanding Labs Recommendation: Barrier(s) to disposition, Recommendation based on pending studies, treatments, or consults S.B.A.R. Report Given to: Dr. Oumar Avalos Repor Time: 20:42
[2017-09-08 19:11] LABS: Basophils % 0.2 %; Eosinophils % 0.2 %; Hematocrit 31.7 % (35.3-44.9); Hemoglobin 10.2 g/dL (11.5-15.4); Immature Granulocytes % 0.6 % (0-4); Lymphocytes # 0.6 K/mcL (0.6-4.6); Lymphocytes % 6.3 %; Mean Corpuscular HGB Conc 32.2 g/dL (31.6-35.5); Mean Corpuscular Hemoglobin 25.9 pg (28.0-33.3); Mean Corpuscular Volume 80.5 fL (83.0-100.0); Mean Platelet Volume 12.7 fL (9.4-12.4); Monocytes # 0.6 K/mcL (0.0-1.3); Monocytes % 6.6 %; Neutrophils # 8.1 K/mcL (1.6-8.9); Platelet Count 132 K/mcL (140-400); Red Blood Count 3.94 M/mcL (3.82-4.97); Red Cell Distribution Width 13.7 % (11.5-14.5); Segmented Neutrophils % 86.1 %
[2017-09-08 19:20] LABS: INR 1.3; Prothrombin Time 14.5 Seconds (9.4-12.1)
[2017-09-08 19:24] LABS: BUN/Creatinine Ratio 9 (6-26); Blood Urea Nitrogen 7 mg/dL (7-20); Calcium 8.7 mg/dL (8.6-10.8); Carbon Dioxide 25 mEq/L (19-29); Chloride 98 mEq/L (98-109); Glucose 88 mg/dL (70-99); Osmolality,Calculated 277 (280-300); Potassium 3.2 mEq/L (3.5-4.5); Sodium 135 mEq/L (136-145); eGFR For African Americans > 60 (> 60); eGFR For Non-African Americans > 60 (> 60)
[2017-09-08 19:36] LABS: C-Reactive Protein 195 mg/L (Less than 5)
[2017-09-08] MEDS ORDERED: Cefepime HCl 2,000 MG in D5% in Water (Mini-Bag+) 100 ML IVPB STA (20:13)
[2017-09-08] MEDS ORDERED: Vancomycin 1,250 MG in D5% in Water 250 ML IVPB ONE ×2 (20:13→20:21)
[2017-09-08 20:39] LABS: Bilirubin,Urine Small (Negative); Blood,Urine Negative (Negative); Clarity,Urine Cloudy (Clear); Color,Urine Dark Yellow (Yellow); Glucose,Urine (UA) Normal (Normal); Ketones,Urine Negative (Negative); Leukocyte Esterase,Urine Trace (Negative); Nitrite,Urine Negative (Negative); Protein,Urine Trace mg/dL (Neg-Trace); Specific Gravity,Urine 1.019 (1.010-1.025); Urobilinogen,Urine Normal (Normal)
[2017-09-08 20:44] LABS: Bacteria,Urine None Seen per hpf (None-Few); Hyaline Casts,Urine None Seen per lpf (None-Few); RBC,Urine 0-3 per hpf (0-3); Squamous Epithelial Cell,Urine Many per lpf (None-Few)
[2017-09-08 20:56] LABS: Amorphous Sediment,Urine Few (Few)
--- NOTE | 2017-09-08 22:25 | Orthopedic Consult Note ---
Date of Encounter: 09/08/17 Time of Encounter: 22:22 Assessment and Plan (1) Knee pain, left Current Visit: Yes Status: Acute I did discuss the diagnosis in detail with the patient. She has a history strongly suggestive of septic arthritis, though the exam of the left knee is somewhat benign. My recommendation was to proceed with arthrocentesis of the left knee for further evaluation of the synovial fluid to confirm the diagnosis. The patient adamantly refuses knee aspiration by myself and had also refused aspiration earlier in the emergency department. Given the underlying risks of presumptively taking the patient to the operating room for arthroscopic lavage without confirming the diagnosis of septic knee arthritis, I again strongly recommended aspiration of the left knee joint. I discussed the risks of of permanent cartilage damage that can occur without adequate diagnosis and treatment and the patient did verbalize her understanding and in my opinion is coherent and very understanding of my instructions, however she still refuses aspiration and she indicates that she wants to see if her knee gets better on its own as it has improved over the last few days. Therefore the patient will be treated with IV antibiotics per the primary team. I will follow the patient with you clinically. Qualifiers: Qualified Code(s): M25.562 - Pain in left knee History of Present Illness HPI: Ms. Guthrie is a 31 year old female admitted to the hospitalist. She is an IV drug user and was apparently recently admitted to a hospital for endocarditis but left AGAINST MEDICAL ADVICE due to withdrawal symptoms. When asked which hospital she was at she says every hospital between here in [place]. Nevertheless orthopedics was consulted due to left knee pain. My evaluation the patient says it has been painful for the last 4 or 5 days but she says it has been improving. It has prevented her from being able to walk. The knee pain is diffuse. She has not any formal workup or treatment for this. She denies any other joint pains. No numbness, tingling, or any other associated signs or symptoms or modifying factors. Past Med Surg Social Fam HX - Past Medical History Medical history: hepatitis, other Psychiatric history: no psych history - Past Surgical History Surgical History: , hysterectomy - Social History Smoking Status: Current every day smoker Smokeless Tobacco Status: No Alcohol use: none Drug use: cocaine, opiates, IV Drug Use, prescription drug abuse, other - Family History Father Hx Family Endocrine Disorder: Yes (DM) Medications and Allergies No Known Home Drugs 05/18/17 [History] 3 Allergy/AdvReac Type Severity Reaction Status Date / Time No Known Allergies Allergy Verified 09/08/17 18:14 All Systems Reviewed: Constitutional and musculoskeletal systems were reviewed and are negative unless otherwise stated in history of present illness. Physical Exam - Constitutional Vitals: Temp Pulse Resp BP Pulse Ox 98.7 F 91 18 90/43 97 09/08/17 22:17 09/08/17 22:17 09/08/17 22:17 09/08/17 22:17 09/08/17:17 CONSTITUTIONAL -Vitals reviewed -The patient is well developed, well nourished, well groomed PSYCHIATRIC -Fully alert and oriented -Pleasant mood LEFT LOWER EXTREMITY Inspection shows that the skin and the soft tissue envelope are intact. Mild effusion palpable to the left knee with some overlying warmth and no erythema. I can passively range the hip through a normal motion within the limits of the bed. This does not cause any pain. Motion of the knee through the mid arc causes no significant pain and motion is actually quite good from 0 to about 145 though at the limits of motion this does cause moderate pain. The knee is ligamentously stable. She can dorsiflex and plantarflex the ankle and toes and the foot is warm and well perfused. Diagnostic Imaging: I did personally review and interpret x-rays of the left knee which show no degenerative changes and no fractures or dislocations. Results - Labs Result Diagrams: 09/08/17 18:58 09/08/17 18:58 Labs: Abnormal lab results Hgb 10.2 g/dL (11.5-15.4) L 09/08/17 18:58 Hct 31.7 % (35.3-44.9) L 09/08/17 18:58 MCV 80.5 fL (83.0-100.0) L 09/08/17 18:58 MCH 25.9 pg (28.0-33.3) L 09/08/17 18:58 Plt Count 132 K/mcL (140-400) L 09/08/17 18:58 MPV 12.7 fL (9.4-12.4) H 10/15/17 18:58 ESR 128 mm/hr (0-15) H 09/08/17 18:58 PT 14.5 Seconds (9.4-12.1) H 09/08/17 18:58 Sodium 135 mEq/L (136-145) L 09/08/17 18:58 Potassium 3.2 mEq/L (3.5-4.5) L 09/08/17 18:58 Calculated Osmolality 277 (280-300) L 09/08/17 18:58 C-Reactive Protein 195 mg/L (Less than 5) H 09/08/17 18:58 Urine Clarity Cloudy (Clear) A 09/08/17 18:36 Urine Bilirubin Small (Negative) H 09/08/17 18:36 Ur Leukocyte Esterase Trace (Negative) H 09/08/17 18:36 Urine Microscopic WBC 5-15 per hpf (0-3) H 09/08/17 18:36 Ur Squamous Epith Cells Many per lpf (None-Few) H 09/08/17 18:36 Ur Culture Indicated? YES (NO) A 09/08/17 18:36 All other labs normal. Consult Discharge Plan - Plan Referrals: NONE,PCP [Primary Care Provider] -
[2017-09-08 22:29] LABS: Amphetamine Screen,Urine Negative ng/mL (Cutoff=1000); Barbiturate Screen,Urine Negative ng/mL (Cutoff=200); Benzodiazepines Screen,Urine Positive ng/mL (Cutoff=200); Cannabinoid Screen,Urine Negative ng/mL (Cutoff = 50); Cocaine Screen,Urine Positive ng/mL (Cutoff= 300); Opiate Screen,Urine Positive ng/mL (Cutoff=300); Phencyclidine Screen,Urine Negative ng/mL (Cutoff=25)
[2017-09-08] MEDS ORDERED: Naloxone 0.4 MG/ML INJ IVP PRN (22:57)
--- NOTE | 2017-09-08 23:14 | Internal Med History&Physical ---
<Emely Davila - Last Filed: 09/09/17 00:41> Date of Encounter: 09/09/17 Time of Encounter: 22:30 Assessment and Plan (1) Sepsis Current visit: Yes Status: Acute 1 patient presented tachycardic with fever of 103 suspect septic arthritic left knee. Patient was given IV fluid and blood cultures have been drawn started on vancomycin and cefepime. Continue to monitor intake and output daily weights Maintain M AP greater than 60 Continuous cardiac monitoring Qualifiers: Sepsis type: sepsis due to unspecified organism Qualified Code(s): A41.9 - Sepsis, unspecified organism (2) Knee pain, left Current visit: Yes Status: Acute Patient has been experiencing left knee pain and swelling for the past 3 days. History of IV drug use. Was seen by orthopedics who wanted to drain and obtain cultures in which patient refused. We will continue with antibiotic treatment vancomycin and cefepime. 2 continue with IV fluids 3 blood cultures have been drawn Qualifiers: Chronicity: acute Qualified Code(s): M25.562 - Pain in left knee (3) Endocarditis Current visit: Yes Status: Chronic Patient has a past history of endocarditis as well as IV drug use. Apparently patient has been to several hospitals for treatment however she signed out AMA before completing treatment to use heroin We will continue with vancomycin and cefepime Patient's was diagnosed in April of this year at [facility]-blood cultures from last hospitalization here for positive for staph aureus and Stenotrophomonas maltophilia Qualifiers: Endocarditis type: infective Infective endocarditis organism: unspecified organism Chronicity: chronic Qualified Code(s): I38 - Endocarditis, valve unspecified (4) Heroin abuse Current visit: Yes Status: Acute Patient has a history of heroin abuse last time she used was 3:00 this afternoon. We will administer Ativan for any withdrawal symptoms Seizure precautions (5) DVT prophylaxis Current visit: Yes Status: Acute Internal Medicine - H&P: HPI Chief complaint: R knee pain Admitted From: Emergency Dept Plans for Post Hospital Care: Home History of present illness: Ms. Guthrie is a 31 year old female history of IV drug use, untreated endocarditis, hepatitis. Patient has been experiencing pleuritic chest pain for the past 5 days shortness of breath and fever. She has had history of endocarditis or IV drug use and has been in and out of hospitals and has recently left AMA to use IV drugs. She also has been experiencing left knee pain for approximately 3 days denies any injury denies injecting drugs into this leg. She presented to the ER with the above complaints. Upon presentation patient did appear septic she was tachycardic temperature of 103 white count was 9.4 ESR was 128. CTA chest was obtained which did not show any PE. X-ray of left knee obtained. Blood cultures have been drawn and patient was given IV vancomycin and cefepime. ER attempted to drain left knee however patient refused. Orthopedics has been consult. Apparently Dr. Nettles spoke with patient concerning draining the patient refused. Presently the patient appears very groggy. She states she last used hair when around 3 PM she had Xanax around 4 and smoked crack around 6 PM tonight. According nursing staff patient was more alert upon arrival to the floor. She does have a male visitor who states he has her friend is in the room. Concerned that maybe she has taken something. Will obtain tox screen, will give some IV fluids continue with oxygen support and cardiac monitoring. I did discuss the case with who agrees with plan. Past Med Surg Social Fam HX - Past Medical History Medical history: hepatitis, other Psychiatric history: no psych history - Past Surgical History Surgical History: , hysterectomy - Social History Smoking Status: Current every day smoker Smokeless Tobacco Status: No Alcohol use: none Drug use: cocaine, opiates, IV Drug Use, prescription drug abuse, other - Family History Father Hx Family Endocrine Disorder: Yes (DM) Internal Medicine - H&P: Meds No Known Home Drugs 05/18/17 [History] 3 Allergy/AdvReac Type Severity Reaction Status Date / Time No Known Allergies Allergy Verified 09/08/17 18:14 All Systems PM: A 10-system review of systems was performed and is negative for pertinent findings except as documented above in the HPI. - Constitutional Constitutional: fever(s), no chills, no night sweats - EENT Eyes: no change in vision, no discharge, no pain, no photophobia Nose, mouth and throat: no dysphagia, no nasal discharge, no neck pain, no sore throat - Cardiovascular Cardiovascular ROS IM: chest pain - Respiratory Respiratory: no cough, no dyspnea, no wheezing, no excessive phlegm production - Gastrointestinal Gastrointestinal: no abdominal pain, no diarrhea, no hematemesis, no hematochezia, no melena, no nausea, no vomiting - Genitourinary Genitourinary: no change in urinary stream, no dysuria, no flank pain, no hematuria - Musculoskeletal Musculoskeletal ROS IM: arthralgias, joint swelling - Integumentary Integumentary IM: no rash, no unusual bruising - Neurological Neurological ROS: no confusion, no convulsions, no focal weakness, no numbness, no tingling, no tremor(s) - Hematologic/Lymphatic Hematologic/Lymphatic: no easy bruising - Constitutional Vitals: Temp Pulse Resp BP Pulse Ox 98.7 F 91 18 90/43 97 09/08/17 22:17 10 22:17 09/08/17 22:17 09/08/17 22:17 09/08/17 22:17 General appearance: Present: A&O X 1, disheveled, underweight Exam: Patient appears groggy arouses to verbal stimuli - Head Head exam: Present: atraumatic, normocephalic - Eye Eye exam: Present: PERRL, conjuntiva pink, sclera anicteric Pupils: Present: PERRL - Neck Neck exam general surgery: Present: supple, trachea midline. Absent: lymphadenopathy - Respiratory Respiratory exam: Present: rhonchi. Absent: accessory muscle use, rales, wheezes - Cardiovascular Cardiovascular exam: Present: RRR, +S1, +S2. Absent: diastolic murmur, gallop, rubs, systolic murmur - GI/Abdominal GI/Abdominal exam: Present: normal bowel sounds, soft, no peritoneal signs. Absent: distended, tenderness - Extremities Exam Extremities exam: Present: warm, radial pulses palpable and symmetrical. Absent : calf tenderness, cyanotic, pedal edema - Neurological Exam Neurological exam: Present: CN II-XII intact, oriented X3, no focal deficits. Absent: pronater drift, facial droop, speech deficit - Skin Skin exam: Present: dry, intact Internal Med - H&P Results - Labs CBC & Chem 7: 09/08/17 18:58 09/08/17 18:58 - Diagnostic Studies Other Images Additional comments: Chest CTA 09/08/17 18:22 IMPRESSION: No CT evidence pulmonary embolism. Mild slightly patchy right middle lobe and mostly dependent bilateral lower lobe airspace disease, atelectasis and/or pneumonia. D/ / Dee Barrera Cha, MD / Dee Barrera Cha, MD Interpreting Provider: Dee Barrera Cha, MD Knee X-Ray 09/08/17 20:37 IMPRESSION: No acute or focal bony abnormality. D/ / Dee Barrera Cha, MD / Dee Barrera Cha, MD Interpreting Provider: Dee Barrera Cha, MD <Dasia Oseguerad K - Last Filed: 09/09/17 02:43> Date of Encounter: 09/08/17 Internal Medicine - H&P: HPI History of present illness: Ms. Guthrie is a 31 year old female All Systems PM: A 10-system review of systems was performed and is negative for pertinent findings except as documented above in the HPI. - Constitutional Vitals: Temp Pulse Resp BP Pulse Ox 98.7 F 91 18 90/43 97 09/08/17 22:17 09/08/17 22:17 09/08/17 22:17 09/08/17 22:17 09/08/17 22:17 Internal Med - H&P Results - Labs CBC & Chem 7: 09/08/17 18:58 09/08/17 18:58 - Attending Attestation I have personally seen and examined the patient in ER on September 08 and discuss the plan and agree with the findings with nurse practitioner. Patient is 31 years old being diagnosed with endocarditis in March however(has not been treated adequately mainly due to the fact that patient leaves [place] and has been to multiple hospitals. She is IV drug abuser with heroine and cocaine and today her urine drug screen confirms cocaine. She has come in because she is having chest pain shortness of breath and left knee swelling and pain. On CT chest bilateral basal and right middle lobe infiltrates noted consistent with pneumonia raising question for septic emboli. Also has left knee swollen mildly red but is still can have full range of motion. On chest examination heart on apex has 4/6 holosystolic murmur. I have discussed at length the gravity of condition she is not including bilateral pneumonia possible subacute bacterial endocarditis and left knee septic arthritis. ER physician and myself an orthopedic surgeon himself all requested her to have a knee arthrocentesis which she refuses. She wants only her pneumonia to be treated. Have tried to explain her the high risk of mortality and morbidity with her current illness as well as her behavior which is essentially disruptive and may home her own health. She has shown good understanding but I am not sure how much my message with work. In any case we have obtained blood cultures and started her on IV vancomycin and cefepime to cover MRSA and gram-positive cocci and Pseudomonas. Apparently with previous wound culture she has yielded both. Will consult infectious disease in addition to orthopedics. Morning team has to call infectious disease for consult. Daily CBC CMP and CRP ordered. If appears necessary cardiology can be involved in her care also because he have to see if she states in our facility. I have warned her that she probably will go through the withdrawal again just in order for her to be mentally prepared. I have also ordered hepatitis ABC profile and HIV screen.
[2017-09-08] MEDS ORDERED: Vancomycin 750 MG in D5% in Water 250 ML IVPB SCH (23:45)
[2017-09-09] MEDS: 0.9 % Sodium Chloride 1,000 ML IVC SCH ×2 (00:21→11:39)
[2017-09-09] MEDS ORDERED: *HR* Enoxaparin 40 MG/0.4 ML SYRINGE SQ SCH (06:00)
[2017-09-09] MEDS ORDERED: Cefepime HCl 2,000 MG in D5% in Water (Mini-Bag+) 100 ML IVPB SCH (06:00)
--- NOTE | 2017-09-09 07:19 | Orthopedics Progress Note ---
Date of Encounter: 09/09/17 Time of Encounter: 07:16 - Assessment and Plan (1) Knee pain, left Current Visit: Yes Status: Acute I did discuss the diagnosis in detail with the patient. She has a history strongly suggestive of septic arthritis, though the exam of the left knee is somewhat benign. My recommendation was to proceed with arthrocentesis of the left knee for further evaluation of the synovial fluid to confirm the diagnosis. The patient adamantly refuses knee aspiration by myself and had also refused aspiration earlier in the emergency department. Given the underlying risks of presumptively taking the patient to the operating room for arthroscopic lavage without confirming the diagnosis of septic knee arthritis, I again strongly recommended aspiration of the left knee joint. I discussed the risks of of permanent cartilage damage that can occur without adequate diagnosis and treatment and the patient did verbalize her understanding and in my opinion is coherent and very understanding of my instructions, however she still refuses aspiration and she indicates that she wants to see if her knee gets better on its own as it has improved over the last few days. Therefore the patient will be treated with IV antibiotics per the primary team. I will follow the patient with you clinically. Qualifiers: Chronicity: acute Qualified Code(s): M25.562 - Pain in left knee Subjective Interval history: S: Resting in bed comfortably. Improved left knee pain. No new complaints. O: Afebrile and her vital signs are stable Left knee with minimal effusion. No erythema. Motion is from 0-135 degrees without significant pain throughout this arc of motion. Beyond 135 degrees of flexion she complained of pain. She can dorsiflex and plantarflex her ankle and toes. The foot is sensate and well-perfused. A: Improving left knee pain and history of endocarditis P: At this point it was still my strong recommendation to aspirate the left knee in order to evaluate for septic arthritis. She is aware the risk of cartilage damage and joint destruction without problem diagnosis and treatment. Despite the above the patient again this morning refuses aspiration of the left knee and does not want to have surgery. I will follow with you clinically. Objective Vital signs: Vital Signs Temp Pulse Resp BP Pulse Ox 09/09/17 04:23 98.8 F 68 15 85/48 99 Intake and Output 09/08/17 09/08/17 09/09/17 15:59 23:59 07:59 Intake Total 250 / 250 Balance 250 / 250 Intake: IV Fluids 250 / 250 Vancocin 1,250 MG In Dextrose 5 250 / 250 % 250 ML @ 166.67 mls/hr IVPB ONCE ONE Rx#:[id number] Other: Weight 56.7 kg Blood Glucose* 111 Patient Weight 09/09/17 23:59 Weight 56.7 kg - Labs CBC & BMP: 09/08/17 18:58 09/08/17 18:58 Labs: Abnormal lab results Hgb 10.2 g/dL (11.5-15.4) L 09/08/17 18:58 Hct 31.7 % (35.3-44.9) L 09/08/17 18:58 MCV 80.5 fL (83.0-100.0) L 09/08/17 18:58 MCH 25.9 pg (28.0-33.3) L 09/08/17 18:58 Plt Count 132 K/mcL (140-400) L 09/08/17 18:58 MPV 12.7 fL (9.4-12.4) H 09/08/17 18:58 ESR 128 mm/hr (0-15) H 09/08/17 18:58 PT 14.5 Seconds (9.4-12.1) H 09/08/17 18:58 Sodium 135 mEq/L (136-145) L 09/08/17 18:58 Potassium 3.2 mEq/L (3.5-4.5) L 09/08/17 18:58 Calculated Osmolality 277 (280-300) L 09/08/17 18:58 C-Reactive Protein 195 mg/L (Less than 5) H 09/08/17 18:58 Urine Clarity Cloudy (Clear) A 09/08/17 18:36 Urine Bilirubin Small (Negative) H 09/08/17 18:36 Ur Leukocyte Esterase Trace (Negative) H 09/08/17 18:36 Urine Microscopic WBC 5-15 per hpf (0-3) H 09/08/17 18:36 Ur Squamous Epith Cells Many per lpf (None-Few) H 09/08/17 18:36 Ur Culture Indicated? YES (NO) A 09/08/17 18:36 Urine Opiates Screen Positive ng/mL (Nhfdgb=731) H 09/08/17 18:36 U Benzodiazepines Scrn Positive ng/mL (Xeffcw=044) H 09/08/17 18:36 Urine Cocaine Screen Positive ng/mL (Cutoff= 300) H 09/08/17 18:36 Consult Discharge Plan - Plan Referrals: NONE,PCP [Primary Care Provider] -
[2017-09-09] MEDS ORDERED: Vancomycin 1,000 MG in D5% in Water 250 ML IVPB SCH (10:00)
[2017-09-09] MEDS ORDERED: 0.9 % Sodium Chloride 250 ML IVC PRN (11:20)
[2017-09-09 11:52] VITALS: BP 93/56
--- NOTE | 2017-09-09 12:13 | Discharge Summary ---
Date of Encounter: 09/10/17 Time of Encounter: 12:11 - Discharge Diagnosis (1) Septic arthritis of knee, left Priority: Primary Status: Acute Qualifiers: Qualified Code(s): M00.9 - Pyogenic arthritis, unspecified (2) Heroin abuse Priority: Secondary Status: Chronic - Discharge Medications Prescriptions: Doxycycline 100 mg PO BID #20 capsule Levofloxacin [Levaquin] 750 mg PO DAILY #10 tablet Home Medications: Doxycycline 100 mg PO BID #20 capsule 09/09/17 [Rx] Levofloxacin [Levaquin] 750 mg PO DAILY #10 tablet 09/09/17 [Rx] Allergies/Adverse Reactions: 3 Allergy/AdvReac Type Severity Reaction Status Date / Time No Known Allergies Allergy Verified 09/08/17 18:14 Procedures/tests Complete & Pending: Procedures Performed prior 72 hours Category Date Time Status EV echocardiogram Routine Y 09/09/17 02:31 Ordered Date of admission: 09/08/17 23:00 Primary care physician: PCP NONE Consults: 09/09/17 02:31 Consult to Infectious Diseases [CONS] Routine Consulting Provider: [facility] [place] Reason for Consult: SBE/Septic lung emboli/Septi Arthritis/ IVDA Time Notified: 02:32 Call Completed: No Discharging clinician: Jenna Rossi - Patient Status Disposition: Left Against Medical Advice Condition: Undetermined Functional capacity at discharge: independent ambulation Overall status at discharge: patient is not back to baseline - Discharge Instructions Follow Up With: NONE,PCP [Primary Care Provider] - Interval History: Patient presents to the ED with a 5 day history of pleuritic chest pain, shortness of breath, fever. States she has a history of endocarditis from IV drug use. States she has been in and out of hospitals recently b/c she left AMA to use IV drugs while being treated for endocarditis. States that she feels like she may have another infection. Also complaining of left knee pain during this timeframe as well. Denies any injury. Hospital course: She was febrile at triage. There was oncern for bacteremia. The patient refuses left knee arthrocentesis despite discussion with her. A CTa of chest showed no evidence pulmonary embolism. Blood cultures were obtainedand she was then started on vancomycin and cefepime. Orthopedics was consulted as well as Infectious Disease specialists. Orthopedic surgery physician discussed the risks of of permanent cartilage damage that can occur without adequate diagnosis and treatment and the patient did verbalize her understanding. Patient indicated that she wants to see if her knee gets better on its own as it has improved over the last few days. Patient decided to leave AMA once again. She was informed of consequences of leaving including high risk of if not being treated with IV antibiotics. She voiced her understanding of this. Given the severity of the situation and her reluctancy to stay, I did prescribe her doxycycline and Levaquin. I did reiterate, however that PO antibiotics are not as effective and puts her at high risk. Patient understand and left. Several hours later after discharge, Lab called us and informed us that Serratia has grown from blood culture. We called patient about these results and we recommended that she return to the ED for treatment. She stated that she will consider it. - Time Spent with Patient Total time spent providing and/or coordinating discharge services: - Constitutional Vitals: Temp Pulse Resp BP Pulse Ox 97.6 F 73 17 93/56 98 09/09/17 11:51 09/09/17 11:51 09/09/17 11:51 09/09/17 11:51 09/09/17 11:51 General appearance: Present: A&O X 1, disheveled, underweight Exam: - General Limitations: no limitations General appearance: alert, anxious - Head Head exam: atraumatic, normocephalic, normal inspection - Eye Eye exam: Present: normal appearance, PERRL, EOMI - Chest Chest inspection: Present: normal inspection, symmetric chest wall rise - Respiratory Respiratory exam: Present: normal lung sounds bilaterally. Absent: respiratory distress - Cardiovascular Cardiovascular exam: Present: normal rhythm, tachycardia - Abdominal Exam Abdominal exam: Present: soft, Non-Tender. Absent: tenderness, distention, guarding, rebound, rigidity - Extremities Exam Extremities exam: Present: normal inspection, full ROM, tenderness (mild L knee tenderness, no effusion or sign of infection ) - Expanded Lower Extremity Exam Hip/Pelvis exam: Present: pelvis stable Knee exam: Present: tenderness (diffuse on L), swelling (L), erythema (L), effusion (moderate ). Absent: normal inspection - Neurological Exam Neurological exam: Present: alert, oriented X3 - Psychiatric Psychiatric exam: Present: normal affect, normal mood - Skin Skin exam: Present: warm, dry, intact, normal color
[2017-09-09 12:33] LABS: Acinetobacter baumannii by PCR Not Detected (Not Detect); Candida albicans by PCR Not Detected (Not Detect); Candida glabrata by PCR Not Detected (Not Detect); Candida krusei by PCR Not Detected (Not Detect); Candida parapsilosis by PCR Not Detected (Not Detect); Candida tropicalis by PCR Not Detected (Not Detect); Enterococcus by PCR Not Detected (Not Detect); Escherichia coli by PCR Not Detected (Not Detect); Klebsiella oxytoca by PCR Not Detected (Not Detect); Klebsiella pneumoniae by PCR Not Detected (Not Detect); Pseudomonas aeruginosa by PCR Not Detected (Not Detect); Serratia marcescens by PCR ***DETECTED*** (Not Detect); Staphylococcus aureus by PCR Not Detected (Not Detect); Streptococcus agalactiae(B)PCR Not Detected (Not Detect); Streptococcus by PCR Not Detected (Not Detect); Streptococcus pneumoniae PCR Not Detected (Not Detect); Streptococcus pyogenes (A) PCR Not Detected (Not Detect); blaKPC Carbapenem-Resist Gene Not Detected (Not Detect)
--- NOTE | 2017-09-09 18:08 | Electrocardiograph Report ---
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
== END 2017-09-09 12:19 | disposition left against medical advice (07) | DRG 344 ==
LOC: 2ANU 18:02 → EMEROO 18:02 → 2ANU 21:53
PROVIDERS: ADMIT Internal Medicine; ATTEND Student in an Organized Health Care Education/Training Program

== ENCOUNTER 2017-09-14 17:33 | Observation (INO) ==
--- NOTE | 2017-09-14 17:50 | Emergency Department Note ---
Disposition Clinical Impression: Bacterial endocarditis Qualifiers: Chronicity: acute Qualified Code(s): I33.0 - Acute and subacute infective endocarditis Disposition: Admitted As Inpatient Condition: Serious Referrals: NONE,PCP [Primary Care Provider] - Forms: ED Satisfaction Letter Time of Disposition: 20:58 SOB HPI - General Chief Complaint: ED Shortness of Breath/Dyspnea Stated Complaint: weak, SOB Time Seen by Provider: 09/14/17 17:40 Source: patient Mode of arrival: ambulatory Limitations: no limitations Nursing Notes Reviewed: Yes Vital Signs Reviewed: Yes - History of Present Illness 31-year-old heroin addict who was diagnosed with endocarditis [facility] back in March and April. Never followed up for treatment. Was seen here last week had blood work done was found have a blood positive blood cultures with Serratia marcescens sensitive to cephalosporin including ceftriaxone Ceptaz pain cefepime cefazolin. Patient was seen here of 4 days ago plans were to admit and after 2 hour process of attempting to get a line due to poor vascular access 1 was obtained then the patient immediately stated that she wanted to leave and signed out AMA after removal of the central line. 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 Context: other (Diagnosis of endocarditis which has not been treated.) Severity: moderate Consistency/Duration: constant Improves with: nothing Worsens with: exertion - Related Data Previous Rx's Medication Instructions Recorded Doxycycline 100 mg PO BID #20 capsule 09/09/17 Levofloxacin [Levaquin] 750 mg PO DAILY #10 tablet 09/09/17 Allergies Allergy/AdvReac Type Severity Reaction Status Date / Time No Known Allergies Allergy Verified 09/14/17 17:54 Constitutional: Denies: fever, chills, weakness, weight change Eyes: Denies: eye pain, eye discharge, vision change ENT ED: Denies: ear pain, throat pain, dental pain, hearing loss, epistaxis, congestion, dysphagia Cardiovascular: Denies: chest pain, palpitations, dyspnea on exertion, edema, syncope Respiratory: Reports: dyspnea. Denies: cough, wheezes, hemoptysis, stridor Gastrointestinal: Denies: abdominal pain, nausea, vomiting, diarrhea, constipation, hematemesis, melena, hematochezia Genitourinary: Denies: dysuria, frequency, hematuria, discharge Musculoskeletal: Denies: back pain, neck pain, arthralgia, myalgia Integumentary: Denies: rash, abrasion, lesions Neurological: Denies: headache, weakness, numbness, paresthesias, confusion, abnormal gait, vertigo Psychiatric: Denies: anxiety, depression, suicidal thoughts, homicidal thoughts , auditory hallucinations, visual hallucinations Endocrine: Denies: fatigue Hematological/Lymphatic: Denies: easy bleeding, easy bruising Allergic/Immunologic: Denies: facial swelling, urticaria Past Medical History - Past Medical History Medical history: Reports: hepatitis, other Surgical history: Reports: , hysterectomy Psychiatric history: Reports: no psych history MONOGRAM AND LETTER PASTER history: Reports: no MONOGRAM AND LETTER PASTER history - Social History Smoking Status: Current every day smoker Smokeless Tobacco Status: No Alcohol use: Reports: none Drug use: Reports: cocaine, opiates, IV Drug Use, prescription drug abuse, other Physical Exam - General Limitations: no limitations General appearance: alert, in no apparent distress - Head Head exam: atraumatic, normocephalic, normal inspection - Eye Eye exam: Present: normal appearance, PERRL, EOMI - Expanded Eye Exam Pupils: Left: reactive - ENT ENT exam: normal exam, normal oropharynx, mucous membranes moist - Expanded ENT Exam External ear exam: Present: normal external inspection Mouth exam: Present: normal external inspection Teeth exam: Present: normal inspection Throat exam: Present: normal inspection - Neck Neck exam: Present: normal inspection, full ROM, trachea midline - Chest Chest inspection: Present: normal inspection, symmetric chest wall rise - Respiratory Respiratory exam: Present: normal lung sounds bilaterally - Cardiovascular Cardiovascular exam: Present: regular rate, normal rhythm, systolic murmur - Abdominal Exam Abdominal exam: Present: soft, Non-Tender. Absent: tenderness, distention, guarding, rebound, rigidity - Extremities Exam Extremities exam: Present: normal inspection, full ROM. Absent: tenderness, pedal edema - Expanded Upper Extremity Exam Shoulder exam: Present: normal inspection, full ROM Arm exam: Present: normal inspection, full ROM Elbow exam: Present: normal inspection, full ROM Forearm/Wrist exam: Present: normal inspection, full ROM Hand exam: Present: normal inspection, full ROM Vascular exam: Normal: capillary refill, radial pulse - Expanded Lower Extremity Exam Hip/Pelvis exam: Present: normal inspection, full ROM Upper leg exam: Present: normal inspection, full ROM Knee exam: Present: normal inspection, full ROM Lower leg exam: Present: normal inspection, full ROM Ankle exam: Present: normal inspection, full ROM Foot/toe exam: Present: normal inspection, full ROM Neurovascular/Tendon exam: Absent: motor deficit, sensory deficit, tendon deficit - Back Exam Back exam: Present: normal inspection, full ROM. Absent: tenderness - Neurological Exam Neurological exam: Present: alert, oriented X3 - Expanded Neurological Exam Patient oriented to: Present: person, place, time Coma Scale Eye Opening: Spontaneous Coma Scale Motor Response: Obeys Commands Coma Scale Verbal Response: Oriented Coma Scale Total: 15 - Psychiatric Psychiatric exam: Present: normal affect, normal mood - Skin Skin exam: Present: warm, dry, intact, normal color Course - Reevaluation(s) Reevaluation #1: 31-year-old heroin abuser who has documented endocarditis which has never been completely treated. Patient comes in today with elevated temperature. She was seen here several days ago and had a positive culture for Serratia marcescens. This is sensitive to Rocephin she was given Rocephin here patient will be admitted to the hospital. Time: 20:57 - Consultations Consultation #1: Discussed with Dr. Quigley, admit Time: 20:57 Vital Signs Temperature 103.2 F H 09/14/17 17:42 Pulse Rate 107 09/14/17 17:42 Respiratory Rate 14 09/14/17 17:42 Blood Pressure 110/60 09/14/17 17:42 O2 Sat by Pulse Oximetry 93 09/14/17 17:42 Temperature 103.2 F H 09/14/17 17:42 Pulse Rate 99 09/14/17 20:46 Respiratory Rate 16 09/14/17 20:46 Blood Pressure 99/48 09/14/17 20:46 O2 Sat by Pulse Oximetry 96 09/14/17 20:46 Oxygen Delivery Oxygen Delivery Room Air Shortness of Breath/Dyspnea - Lab Data Result diagrams: 09/14/17 19:21 09/14/17 19:21 Lab Results 09/14/17 09/14/17 09/14/17 Range/Units 19:21 19:21 19:21 WBC 4.3 D (4.3-11.1) K/mcL RBC 3.50 L (3.82-4.97) M/mcL Hgb 9.1 L (11.5-15.4) g/dL Hct 28.5 L (35.3-44.9) % MCV 81.4 L (83.0-100.0) fL MCH 26.0 L (28.0-33.3) pg MCHC 31.9 (31.6-35.5) g/dL RDW 14.0 (11.5-14.5) % Plt Count 146 (140-400) K/mcL MPV 12.4 (9.4-12.4) fL Immature Gran % 0.7 (0-4) % Seg Neutrophils % 76.1 % Lymphocytes % 16.9 % Monocytes % 5.9 % Eosinophils % 0.2 % Basophils % 0.2 % Neutrophils # 3.3 (1.6-8.9) K/mcL Lymphocytes # 0.7 (0.6-4.6) K/mcL Monocytes # 0.3 (0.0-1.3) K/mcL Eosinophils # 0.0 (0.0-0.6) K/mcL Basophils # 0.0 (0.0-0.2) K/mcL Sodium 134 L (136-145) mEq/L Potassium 3.4 L (3.5-4.5) mEq/L Chloride 100 (98-109) mEq/L Carbon Dioxide 26 (19-29) mEq/L BUN 5 L (7-20) mg/dL Creatinine 0.75 (0.57-1.11) mg/dL Est GFR ( Amer) > 60 (> 60) Est GFR (Non-Af Amer) > 60 (> 60) BUN/Creatinine Ratio 7 (6-26) Glucose 89 (70-99) mg/dL Calculated Osmolality 275 L (280-300) Lactic Acid 0.7 (0.5-2.2) mmol/L Calcium 8.6 (8.6-10.8) mg/dL Serum , Qual (Negative) 09/14/17 Range/Units 19:21 WBC (4.3-11.1) K/mcL RBC (3.82-4.97) M/mcL Hgb (11.5-15.4) g/dL Hct (35.3-44.9) % MCV (83.0-100.0) fL MCH (28.0-33.3) pg MCHC (31.6-35.5) g/dL RDW (11.5-14.5) % Plt Count (140-400) K/mcL MPV (9.4-12.4) fL Immature Gran % (0-4) % Seg Neutrophils % % Lymphocytes % % Monocytes % % Eosinophils % % Basophils % % Neutrophils # (1.6-8.9) K/mcL Lymphocytes # (0.6-4.6) K/mcL Monocytes # (0.0-1.3) K/mcL Eosinophils # (0.0-0.6) K/mcL Basophils # (0.0-0.2) K/mcL Sodium (136-145) mEq/L Potassium (3.5-4.5) mEq/L Chloride (98-109) mEq/L Carbon Dioxide (19-29) mEq/L BUN (7-20) mg/dL Creatinine (0.57-1.11) mg/dL Est GFR ( Amer) (> 60) Est GFR (Non-Af Amer) (> 60) BUN/Creatinine Ratio (6-26) Glucose (70-99) mg/dL Calculated Osmolality (280-300) Lactic Acid (0.5-2.2) mmol/L Calcium (8.6-10.8) mg/dL Serum , Qual Negative (Negative)
[2017-09-14] MEDS ORDERED: Ondansetron 4 MG/2 ML VIAL IVP ONE (19:30)
[2017-09-14 19:32] LABS: Basophils % 0.2 %; Eosinophils % 0.2 %; Hematocrit 28.5 % (35.3-44.9); Hemoglobin 9.1 g/dL (11.5-15.4); Immature Granulocytes % 0.7 % (0-4); Lymphocytes # 0.7 K/mcL (0.6-4.6); Lymphocytes % 16.9 %; Mean Corpuscular HGB Conc 31.9 g/dL (31.6-35.5); Mean Corpuscular Volume 81.4 fL (83.0-100.0); Mean Platelet Volume 12.4 fL (9.4-12.4); Monocytes # 0.3 K/mcL (0.0-1.3); Monocytes % 5.9 %; Platelet Count 146 K/mcL (140-400); Segmented Neutrophils % 76.1 %
[2017-09-14 19:34] LABS: Neutrophils # 3.3 K/mcL (1.6-8.9)
[2017-09-14 19:44] LABS: BUN/Creatinine Ratio 7 (6-26); Blood Urea Nitrogen 5 mg/dL (7-20); Calcium 8.6 mg/dL (8.6-10.8); Carbon Dioxide 26 mEq/L (19-29); Chloride 100 mEq/L (98-109); Glucose 89 mg/dL (70-99); Osmolality,Calculated 275 (280-300); Potassium 3.4 mEq/L (3.5-4.5); Sodium 134 mEq/L (136-145); eGFR For African Americans > 60 (> 60); eGFR For Non-African Americans > 60 (> 60)
[2017-09-14 21:52] VITALS: BP 109/57
[2017-09-14] MEDS ORDERED: Acetaminophen 325 MG TABLET PO PRN (22:03)
[2017-09-14] MEDS ORDERED: Naloxone 0.4 MG/ML INJ IVP PRN (22:03)
[2017-09-14] MEDS ORDERED: 0.9 % Sodium Chloride 1,000 ML IVC SCH (22:15)
--- NOTE | 2017-09-14 22:18 | Internal Med History&Physical ---
Date of Encounter: 09/14/17 Time of Encounter: 21:30 Assessment and Plan (1) History of endocarditis Current visit: Yes Status: Acute Patient has a history of endocarditis, diagnosed in March 2016 in [facility]. Patient has a recent fever and blood culture positive. We will repeat cardiogram. Blood culture drawn again today, follow-up result (2) Tobacco abuse Current visit: Yes Status: Acute This patient on nicotine patch (3) Bacteremia Current visit: Yes Status: Acute 1/2 blood culture positive in 09/08/17. Result shows S Marcesc, sensitive to cefepime. Patient is on cefepime now. Repeated blood culture send, result pending (4) Pneumonia Current visit: No Status: Suspected Chest x-ray shows right lower lobe pneumonia. Patient has symptoms of chest pain, which is pleural-like pain, shortness of breath, and cough. - Patient has been hospitalized recently. Consider healthcare associated pneumonia. - Place patient on Vanco, cefepime, and IV azithromycin - Saturation 97% in room air now, does not need oxygen supportive treatment. - Check sputum culture Qualifiers: Pneumonia type: due to unspecified organism Laterality: right Lung location: lower lobe of lung Qualified Code(s): J18.1 - Lobar pneumonia, unspecified organism (5) Heroin abuse Current visit: No Status: Chronic Social work consult for detox referral (6) DVT prophylaxis Current visit: No Status: Acute Heparin subcutaneously (7) Sepsis Current visit: No Status: Acute patient meet criteria of sepsis with fever and tachycardia. Resource probably is pneumonia. - IV fluid was given the emergency room - Lactic acid is not high - Continue IV fluid and IV antibiotics as described for pneumonia Qualifiers: Sepsis type: sepsis due to unspecified organism Qualified Code(s): A41.9 - Sepsis, unspecified organism Internal Medicine - H&P: HPI Chief complaint: Fever, chest pain, shortness of breath Admitted From: Home Plans for Post Hospital Care: Home History of present illness: Ms. Guthrie is a 31 year old female with history of endocarditis, IV drug abuse, history of signing AMA present to ER for fever, chest pain, and shortness of breath for 7 days. Patient was recently hospitalized and left-sided with AMA on 09/09. Patient said she has sharp chest pain, 7 out of 10, worsening on deep breath. Patient also complaining shortness of breath, and has mild cough with dark sputum. Patient has a fever 103.7. Patient has mild nausea, no vomiting, denies abdominal pain, denies urination symptoms . Chest x-ray on shows possible pneumonia. Patient came back today and admitted for further treatment. Past Med Surg Social Fam HX - Past Medical History Medical history: hepatitis, other Psychiatric history: no psych history - Past Surgical History Surgical History: , hysterectomy - Social History Smoking Status: Current every day smoker Smokeless Tobacco Status: No Alcohol use: none Drug use: cocaine, opiates, IV Drug Use, prescription drug abuse, other - Family History Father Hx Family Endocrine Disorder: Yes (DM) Internal Medicine - H&P: Meds Levofloxacin [Levaquin] 750 mg PO DAILY #10 tablet 09/09/17 [Rx] RX: Doxycycline 100 mg PO BID #20 capsule 09/09/17 [Rx] 3 Allergy/AdvReac Type Severity Reaction Status Date / Time No Known Allergies Allergy Verified 09/14/17 17:54 All Systems PM: A 10-system review of systems was performed and is negative for pertinent findings except as documented above in the HPI. - Constitutional Vitals: Temp Pulse Resp BP Pulse Ox 97.9 F 95 17 109/57 97 09/14/17 21:51 09/14/17 21:51 09/14/17 21:51 09/14/17 21:51 09/14/17 21:51 General appearance: Present: A&O X 3, no acute distress, answers questions appropriately - Head Head exam: Present: atraumatic, normocephalic - Eye Eye exam: Present: PERRL, conjuntiva pink, sclera anicteric Pupils: Present: PERRL - Neck Neck exam general surgery: Present: supple, trachea midline. Absent: lymphadenopathy - Respiratory Respiratory exam: Present: CTAB. Absent: accessory muscle use, rales, rhonchi, wheezes - Cardiovascular Cardiovascular exam: Present: RRR, +S1, +S2. Absent: diastolic murmur, gallop, rubs, systolic murmur - GI/Abdominal GI/Abdominal exam: Present: normal bowel sounds, soft, no peritoneal signs. Absent: distended, tenderness - Extremities Exam Extremities exam: Present: warm, radial pulses palpable and symmetrical. Absent : calf tenderness, cyanotic, pedal edema - Neurological Exam Neurological exam: Present: CN II-XII intact, oriented X3, no focal deficits. Absent: pronater drift, facial droop, speech deficit - Skin Skin exam: Present: dry, intact Internal Med - H&P Results - Labs CBC & Chem 7: 09/14/17 19:21 09/14/17 19:21
[2017-09-14] MEDS ORDERED: Nicotine 21 MG PATCH.TD24 TD SCH (22:30)
[2017-09-14] MEDS ORDERED: Vancomycin 750 MG in D5% in Water 250 ML IVPB SCH (23:00)
[2017-09-14] MEDS ORDERED: Azithromycin 500 MG in D5% in Water 250 ML IVPB SCH (23:00)
[2017-09-14] MEDS ORDERED: Vancomycin 1,000 MG in D5% in Water 250 ML IVPB SCH (23:00)
[2017-09-14] MEDS ORDERED: Aminoglycoside Consult 1 EACH MC ONE (23:14)
[2017-09-15] MEDS ORDERED: Cefepime HCl 1,000 MG in D5% in Water (Mini-Bag+) 100 ML IVPB SCH
--- NOTE | 2017-09-15 01:12 | Discharge Summary ---
Date of Encounter: 09/14/17 Time of Encounter: 22:30 - Discharge Diagnosis (1) History of endocarditis Priority: Secondary Status: Acute (2) Tobacco abuse Priority: Secondary Status: Acute (3) Bacteremia Priority: Secondary Status: Acute (4) Pneumonia Priority: Primary Status: Suspected Qualifiers: Pneumonia type: due to unspecified organism Laterality: right Lung location: lower lobe of lung Qualified Code(s): J18.1 - Lobar pneumonia, unspecified organism (5) Heroin abuse Priority: Secondary Status: Chronic (6) DVT prophylaxis Priority: Secondary Status: Acute (7) Sepsis Priority: Primary Status: Acute Qualifiers: Sepsis type: sepsis due to unspecified organism Qualified Code(s): A41.9 - Sepsis, unspecified organism - Discharge Medications Home Medications: Doxycycline 100 mg PO BID #20 capsule 09/09/17 [Rx] Levofloxacin [Levaquin] 750 mg PO DAILY #10 tablet 09/09/17 [Rx] Allergies/Adverse Reactions: 3 Allergy/AdvReac Type Severity Reaction Status Date / Time No Known Allergies Allergy Verified 09/14/17 17:54 Procedures/tests Complete & Pending: Procedures Performed prior 72 hours Category Date Time Status EV echocardiogram Routine Y 09/14/17 22:09 Ordered Date of admission: 09/14/17 21:08 Primary care physician: PCP NONE Discharging clinician: Chris Dyson Anticipated date of discharge: 09/14/17 - Patient Status Disposition: Left Against Medical Advice Condition: Serious - Discharge Instructions Follow Up With: NONE,PCP [Primary Care Provider] - Hospital course: Ms. Guthrie is a 31 year old female admitted for pneumonia and sepsis. I was called by nurse that the patient would like to sign AMA. I went to bedside and talked to patient. Patient has sepsis, high risk if leave patient untreated. Patient is awake alert, fully oriented. She understand the risk but insist to leave with AMA. Patient said she just does not like this hospital. Patient understands the sepsis is a life-threatening condition and may cause . However, she wanted to leave anyway. Finally patient signed AMA and left. I offered prescription, patient said she still has antibiotic prescribed last time when she signed AMA on 09/09. Patient refused further prescription. - Time Spent with Patient Total time spent providing and/or coordinating discharge services: Less than 30 minutes - Constitutional Vitals: Temp Pulse Resp BP Pulse Ox 97.9 F 95 17 109/57 97 09/14/17 21:51 09/14/17 21:51 09/14/17 21:51 09/14/17 21:51 09/14/17 21:51 General appearance: Present: A&O X 3, no acute distress, answers questions appropriately
[2017-09-15] MEDS ORDERED: *HR* Heparin 5,000 UNIT/ML VIAL SQ SCH (06:00)
[2017-09-15 10:25] LABS: Acinetobacter baumannii by PCR Not Detected (Not Detect); Candida albicans by PCR Not Detected (Not Detect); Candida glabrata by PCR Not Detected (Not Detect); Candida krusei by PCR Not Detected (Not Detect); Candida parapsilosis by PCR Not Detected (Not Detect); Candida tropicalis by PCR Not Detected (Not Detect); Enterococcus by PCR Not Detected (Not Detect); Escherichia coli by PCR Not Detected (Not Detect); Klebsiella oxytoca by PCR Not Detected (Not Detect); Klebsiella pneumoniae by PCR Not Detected (Not Detect); Pseudomonas aeruginosa by PCR Not Detected (Not Detect); Serratia marcescens by PCR ***DETECTED*** (Not Detect); Staphylococcus aureus by PCR Not Detected (Not Detect); Streptococcus agalactiae(B)PCR Not Detected (Not Detect); Streptococcus by PCR ***DETECTED*** (Not Detect); Streptococcus pneumoniae PCR Not Detected (Not Detect); Streptococcus pyogenes (A) PCR Not Detected (Not Detect); blaKPC Carbapenem-Resist Gene Not Detected (Not Detect)
--- NOTE | 2017-09-16 06:35 | Electrocardiograph Report ---
[address] [place], [place] [address] Test Date: 2017-09-14 Pat Name: Jazmyne Guthrie Department: 103 Room: 2NE27 Gender: F [employer] Administrator: : [id number] Requested By: Cuate Martinez Order Number: [id number] Reading MD: Jorge Cornejo MD Measurements Intervals [place] Rate: 103 P: 76 IN: 149 QRS: 36 QRSD: 90 T: 9 QT: 324 QTc: 384 Interpretive Statements SINUS TACHYCARDIA Electronically Signed On 09-16-2017 6:34:36 EDT by Jorge Cornejo MD
== END 2017-09-14 23:15 | disposition left against medical advice (07) ==
LOC: EMEROO 17:33 → 2NENU 17:33
PROVIDERS: ADMIT Internal Medicine; ATTEND Internal Medicine

== ENCOUNTER 2018-06-03 22:29 | Inpatient (IN) ==
--- NOTE | 2018-06-03 22:56 | Emergency Department Note ---
Disposition Clinical Impression: Bilateral lower extremity edema, History of endocarditis Disposition: Still a Patient Condition: Undetermined Referrals: Dana Madsen CNP [Primary Care Provider] - Forms: ED Satisfaction Letter, Work/School Release General Adult HPI - General Chief complaint: ED General Medical Stated complaint: swollen legs and bed sores Time Seen by Provider: 06/03/18 22:55 Source: patient Mode of arrival: ambulatory Limitations: no limitations Nursing Notes Reviewed: Yes Vital Signs Reviewed: Yes - History of Present Illness HPI Narrative: Patient presenting to the ED with bilateral lower extremity edema, right wrist pain and swelling, and a decubitus ulcer. Patient is a known IV drug user and has had endocarditis in the past. She was transferred from here to [facility] earlier in the year and was very septic. She eventually signed out AMA from there and is been back here several times. She states that over the last few weeks she has noticed significant swelling in her bilateral lower extremities which is unusual for her because she is normally very skinny. She states that she is also had some swelling in her right hand. She states that during her last admission, at [facility]. She developed a decubitus ulcer that she feels like his worsening. She is also had a trach previously and the stoma is also opened up because she has been coughing and had yellow sputum. She denies any fever at home. No chest pain or shortness of breath is worse than usual. No associated abdominal pain. She does state that she continues to use heroin and the lesion on her arm is secondary to her injecting recently. States she just feels rundown and tired and she is just concerned about the swelling. Pain Scale: 8 - Related Data Previous Rx's Medication Instructions Recorded Sulfamethoxazole/Trimeth DS 1 each PO BID #20 tablet 02/17/18 [Bactrim DS] cephALEXin [Keflex] 500 mg PO QID #40 capsule 02/17/18 Allergies Allergy/AdvReac Type Severity Reaction Status Date / Time No Known Allergies Allergy Verified 06/03/18 22:36 Review of Systems: As reviewed in the HPI. All other systems reviewed are negative or normal. Past Medical History - Past Medical History Attestation: Yes The following information was validated with the patient. Source: patient Medical history: Reports: CHF, hepatitis, other Surgical history: Reports: , hysterectomy Psychiatric history: Reports: no psych history STEMHOLE BORER history: Reports: no STEMHOLE BORER history - Social History Smoking Status: Current every day smoker Smokeless Tobacco Status: No Alcohol use: Reports: none Drug use: Reports: opiates, IV Drug Use Physical Exam - General Limitations: no limitations General appearance: alert, in no apparent distress, cachectic - Head Head exam: atraumatic, normocephalic, normal inspection - Eye Eye exam: Present: normal appearance, PERRL, EOMI - ENT ENT exam: mucous membranes dry, other (poor dentition) - Neck Neck exam: Present: normal inspection, full ROM, trachea midline, other (Trach stoma open with yellowish sputum) - Chest Chest inspection: Present: normal inspection, symmetric chest wall rise - Respiratory Respiratory exam: Present: other (Decreased breath sounds bilaterally, coarse throughout). Absent: normal lung sounds bilaterally, respiratory distress - Cardiovascular Cardiovascular exam: Present: normal rhythm, tachycardia - Abdominal Exam Abdominal exam: Present: soft, Non-Tender, other (Patient has a feeding tube in place, which she states she has not used in several months and that her primary care physician was supposed to take out and her PCP said that at [facility] was supposed to take it out, so no one has removed it) - Extremities Exam Extremities exam: Present: normal capillary refill, pedal edema (Bilateral pitting) - Expanded Upper Extremity Exam Forearm/Wrist exam: Present: other (The right wrist has an area of swelling that bedside ultrasound revealed a loculated pocket of infection and cellulitis , but nothing that seemed immediately drainable. Patient refused I&D) - Expanded Lower Extremity Exam Hip/Pelvis exam: Present: pelvis stable Knee exam: Present: normal inspection, full ROM Lower leg exam: Present: other (edema) - Neurological Exam Neurological exam: Present: alert, oriented X3 - Psychiatric Psychiatric exam: Present: normal affect, normal mood - Skin Skin exam: Present: warm, dry, intact, normal color. Absent: rash Course Course Narrative: Patient presents with concerns over bilateral lower extremity edema. Patient appears ill and is likely septic. She is tachycardic. We will check sepsis labs, chest x-ray and CT of her abdomen and pelvis to evaluate for possible ostia of her sacrum or abdominal process causing her bilateral lower extremity edema. We will also order bilateral ultrasounds of her legs. Vanco and Zosyn have been ordered as well as blood cultures. Patient will be admitted to the hospitalist service, but will be signed out to the nighttime physician, Dr. Valdes. Vital Signs Temperature 99.1 F 06/03/18 22:36 Pulse Rate 113 06/03/18 22:36 Respiratory Rate 14 06/03/18 22:36 Blood Pressure 112/69 06/03/18 22:36 O2 Sat by Pulse Oximetry 92 06/03/18 22:36 Temperature 99.1 F 06/03/18 22:36 Pulse Rate 113 06/03/18 22:36 Respiratory Rate 14 06/03/18 22:36 Blood Pressure 112/69 06/03/18 22:36 O2 Sat by Pulse Oximetry 92 06/03/18 22:36 Oxygen Delivery Oxygen Delivery Room Air Medical Decision Making - Lab Data Result diagrams: 06/03/18 23:40 06/03/18 23:40 Lab Results 06/03/18 06/03/18 06/03/18 Range/Units 23:40 23:40 23:40 WBC 10.6 (4.3-11.1) K/mcL RBC 3.88 (3.82-4.97) M/mcL Hgb 9.6 L (11.5-15.4) g/dL Hct 31.3 L (35.3-44.9) % MCV 80.7 L (83.0-100.0) fL MCH 24.7 L (28.0-33.3) pg MCHC 30.7 L (31.6-35.5) g/dL RDW 19.2 H (11.5-14.5) % Plt Count 283 (140-400) K/mcL MPV 10.6 (9.4-12.4) fL Immature Gran % 0.8 (0-4) % Seg Neutrophils % 72.1 % Lymphocytes % 20.3 % Monocytes % 6.3 % Eosinophils % 0.1 % Basophils % 0.4 % Neutrophils # 7.7 (1.6-8.9) K/mcL Lymphocytes # 2.2 (0.6-4.6) K/mcL Monocytes # 0.7 (0.0-1.3) K/mcL Eosinophils # 0.0 (0.0-0.6) K/mcL Basophils # 0.0 (0.0-0.2) K/mcL PT 13.2 H (9.4-12.1) Seconds INR 1.2 APTT 30.1 (26.0-36.0) Seconds Sodium (136-145) mEq/L Potassium (3.5-5.1) mEq/L Chloride (98-107) mEq/L Carbon Dioxide (23-29) mEq/L BUN (6-20) mg/dL Creatinine (0.60-1.20) mg/dL Est GFR ( Amer) (> 60) Est GFR (Non-Af Amer) (> 60) BUN/Creatinine Ratio (6-26) Glucose (70-105) mg/dL Calculated Osmolality (280-300) Lactic Acid 2.7 H (0.5-2.2) mmol/L Calcium (8.6-10.3) mg/dL Phosphorus (2.7-4.5) mg/dL Magnesium (1.6-2.6) mg/dL Total Bilirubin (0.3-1.0) mg/dL Direct Bilirubin (0.0-0.2) mg/dL Indirect Bilirubin (0.0-1.2) mg/dL AST (13-39) Units/L ALT (7-52) Units/L Alkaline Phosphatase (34-104) Units/L Troponin I (< 0.04) ng/mL B-Natriuretic Peptide (Less than 100) pg/mL Serum Total Protein (6.4-8.9) g/dL Albumin (3.5-5.7) g/dL Globulin (2.4-3.5) g/dL Albumin/Globulin Ratio (1.1-2.2) 06/03/18 06/03/18 Range/Units 23:40 23:40 WBC (4.3-11.1) K/mcL RBC (3.82-4.97) M/mcL Hgb (11.5-15.4) g/dL Hct (35.3-44.9) % MCV (83.0-100.0) fL MCH (28.0-33.3) pg MCHC (31.6-35.5) g/dL RDW (11.5-14.5) % Plt Count (140-400) K/mcL MPV (9.4-12.4) fL Immature Gran % (0-4) % Seg Neutrophils % % Lymphocytes % % Monocytes % % Eosinophils % % Basophils % % Neutrophils # (1.6-8.9) K/mcL Lymphocytes # (0.6-4.6) K/mcL Monocytes # (0.0-1.3) K/mcL Eosinophils # (0.0-0.6) K/mcL Basophils # (0.0-0.2) K/mcL PT (9.4-12.1) Seconds INR APTT (26.0-36.0) Seconds Sodium 135 L (136-145) mEq/L Potassium 2.9 L (3.5-5.1) mEq/L Chloride 98 (98-107) mEq/L Carbon Dioxide 25 (23-29) mEq/L BUN 6 (6-20) mg/dL Creatinine 0.64 (0.60-1.20) mg/dL Est GFR ( Amer) > 60 (> 60) Est GFR (Non-Af Amer) > 60 (> 60) BUN/Creatinine Ratio 9 (6-26) Glucose 109 H (70-105) mg/dL Calculated Osmolality 278 L (280-300) Lactic Acid (0.5-2.2) mmol/L Calcium 7.9 L (8.6-10.3) mg/dL Phosphorus 3.3 (2.7-4.5) mg/dL Magnesium 1.9 (1.6-2.6) mg/dL Total Bilirubin 0.7 (0.3-1.0) mg/dL Direct Bilirubin 0.4 H (0.0-0.2) mg/dL Indirect Bilirubin 0.3 (0.0-1.2) mg/dL AST 27 (13-39) Units/L ALT 9 (7-52) Units/L Alkaline Phosphatase 171 H (34-104) Units/L Troponin I < 0.03 (< 0.04) ng/mL B-Natriuretic Peptide 167 H (Less than 100) pg/mL Serum Total Protein 6.4 (6.4-8.9) g/dL Albumin 2.4 L (3.5-5.7) g/dL Globulin 4.0 H (2.4-3.5) g/dL Albumin/Globulin Ratio 0.6 L (1.1-2.2) Attestation Statement - Attestation Attestation: I, Meño Budi, examined this patient and my medical decision-making was reviewed with the SQUEEGEE FINISHER/PA/Advanced Practice Nurse/Resident Physician. I agree with the documented findings, disposition and treatment plan as described except to the extent set forth below. 32-year-old female presents emergency Department with concerns of bilateral lower extremity swelling as well as worsening of her decubitus ulcer. Patient has noted swelling in the bilateral lower extremities over the past 6 days. Denies recent trauma. Never had this happen in the past. Patient denies a fever however she has an area of erythema and edema and fluctuance to the right wrist where she used heroin within the past few days. Patient also has a deep sacral decubitus ulcer. There is no purulent drainage on exam however it appears to be deep within the tissues and at least a stage III. Patient had hypokalemia on laboratory evaluation which was replaced in the emergency department. She has decreased albumin which could help her to explain the bilateral lower extremity swelling. She denies shortness of breath, she does have a productive cough in the emergency department. Chest x-ray did not show evidence of acute infiltrate. Lactic acid elevated. CT of the abdomen and pelvis is pending at this time, ultrasound of the bilateral lower extremities pending at this time. Patient likely has infection as the main etiology of her swelling. She was started on vancomycin and Zosyn the emergency department. Patient care will be transferred to Dr. Valdes pending further evaluation.
[2018-06-03] MEDS ORDERED: Piperacillin/Tazobactam 3.375 GM in 0.9 % Sodium Chloride Mini Bag 100 ML IVPB ONE (23:48)
[2018-06-04] MEDS ORDERED: Isovue-370 500 ML INFUS..BTL IV ONE
[2018-06-04 00:06] LABS: INR 1.2; Prothrombin Time 13.2 Seconds (9.4-12.1)
[2018-06-04 00:08] LABS: Activated Partial Thrombo Time 30.1 Seconds (26.0-36.0)
[2018-06-04] MEDS: 0.9 % Sodium Chloride 1,000 ML IVC SCH ×2 (00:13→01:24)
[2018-06-04 00:16] LABS: Basophils % 0.4 %; Eosinophils % 0.1 %; Hematocrit 31.3 % (35.3-44.9); Hemoglobin 9.6 g/dL (11.5-15.4); Immature Granulocytes % 0.8 % (0-4); Lymphocytes # 2.2 K/mcL (0.6-4.6); Lymphocytes % 20.3 %; Mean Corpuscular HGB Conc 30.7 g/dL (31.6-35.5); Mean Corpuscular Hemoglobin 24.7 pg (28.0-33.3); Mean Corpuscular Volume 80.7 fL (83.0-100.0); Mean Platelet Volume 10.6 fL (9.4-12.4); Monocytes # 0.7 K/mcL (0.0-1.3); Monocytes % 6.3 %; Neutrophils # 7.7 K/mcL (1.6-8.9); Platelet Count 283 K/mcL (140-400); Red Blood Count 3.88 M/mcL (3.82-4.97); Red Cell Distribution Width 19.2 % (11.5-14.5); Segmented Neutrophils % 72.1 %
[2018-06-04 00:23] LABS: Troponin I < 0.03 ng/mL (< 0.04)
[2018-06-04 00:27] LABS: Alanine Aminotransferase 9 Units/L (7-52); Albumin 2.4 g/dL (3.5-5.7); Albumin/Globulin Ratio 0.6 (1.1-2.2); Alkaline Phosphatase 171 Units/L (34-104); Aspartate Amino Transferase 27 Units/L (13-39); BUN/Creatinine Ratio 9 (6-26); Bilirubin,Direct 0.4 mg/dL (0.0-0.2); Bilirubin,Indirect 0.3 mg/dL (0.0-1.2); Bilirubin,Total 0.7 mg/dL (0.3-1.0); Blood Urea Nitrogen 6 mg/dL (6-20); Calcium 7.9 mg/dL (8.6-10.3); Carbon Dioxide 25 mEq/L (23-29); Chloride 98 mEq/L (98-107); Glucose 109 mg/dL (70-105); Magnesium 1.9 mg/dL (1.6-2.6); Osmolality,Calculated 278 (280-300); Phosphorous 3.3 mg/dL (2.7-4.5); Potassium 2.9 mEq/L (3.5-5.1); Sodium 135 mEq/L (136-145); Total Protein 6.4 g/dL (6.4-8.9); eGFR For African Americans > 60 (> 60); eGFR For Non-African Americans > 60 (> 60)
[2018-06-04 03:54] LABS: Bilirubin,Urine Negative (Negative); Blood,Urine Negative (Negative); Clarity,Urine Clear (Clear); Color,Urine Yellow (Yellow); Glucose,Urine (UA) Normal (Normal); Ketones,Urine Negative (Negative); Leukocyte Esterase,Urine Negative (Negative); Nitrite,Urine Negative (Negative); Protein,Urine Negative (Neg-Trace); Specific Gravity,Urine > 1.030 (1.010-1.025); Urobilinogen,Urine Normal (Normal)
--- NOTE | 2018-06-04 03:59 | Emergency Department Note ---
Disposition Clinical Impression: Bilateral lower extremity edema, History of endocarditis, Osteomyelitis of vertebra, sacral and sacrococcygeal region Sacral decubitus ulcer Qualifiers: Pressure injury stage: unspecified pressure injury stage Qualified Code(s): L89.159 - Pressure ulcer of sacral region, unspecified stage Disposition: Admitted As Inpatient Condition: Fair Referrals: Dana Madsen CNP [Primary Care Provider] - Forms: ED Satisfaction Letter, Work/School Release Time of Disposition: 03:59 General Adult HPI - General Chief complaint: ED General Medical Stated complaint: swollen legs and bed sores Time Seen by Provider: 06/03/18 22:55 Source: patient Mode of arrival: ambulatory Limitations: no limitations - History of Present Illness Pain Scale: 8 - Related Data Previous Rx's Medication Instructions Recorded Sulfamethoxazole/Trimeth DS 1 each PO BID #20 tablet 02/17/18 [Bactrim DS] cephALEXin [Keflex] 500 mg PO QID #40 capsule 02/17/18 Allergies Allergy/AdvReac Type Severity Reaction Status Date / Time No Known Allergies Allergy Verified 06/03/18 22:36 Past Medical History - Past Medical History Medical history: Reports: CHF, hepatitis, other Surgical history: Reports: , hysterectomy Psychiatric history: Reports: no psych history QUARTZ ORIENTATOR history: Reports: no QUARTZ ORIENTATOR history - Social History Smoking Status: Current every day smoker Smokeless Tobacco Status: No Alcohol use: Reports: none Drug use: Reports: opiates, IV Drug Use Physical Exam - General Limitations: no limitations General appearance: alert, in no apparent distress, cachectic Course - Reevaluation(s) Reevaluation #1: Case was turned over to me at change of shift after Dr. Interiano, the mid shift physician, ended his shift. Patient presented with complaint of swelling to her legs and she reports being nonambulatory for couple of months secondary to pain over her but oxygen sacrum. The workup which included a CT scan of the pelvis indicates osteomyelitis of the coccyx. On physical exam she is exquisitely tender around the coccyx and sacrum. She is admitted to the hospital for treatment. She artery been given vancomycin and Zosyn. I spoke with the hospitalist who accepted the patient for admission. Time: 03:58 - Consultations Consultation #1: Dr. Lang, hospitalist - I discussed the case with the hospitalist. He accepted patient for admission. Time: 03:55 Vital Signs Temperature 99.1 F 06/03/18 22:36 Pulse Rate 113 06/03/18 22:36 Respiratory Rate 14 06/03/18 22:36 Blood Pressure 112/69 06/03/18 22:36 O2 Sat by Pulse Oximetry 92 06/03/18 22:36 Temperature 99.1 F 06/03/18 22:36 Pulse Rate 102 06/04/18 02:55 Respiratory Rate 17 06/04/18 02:55 Blood Pressure 96/53 06/04/18 02:55 O2 Sat by Pulse Oximetry 99 06/04/18 02:55 Oxygen Delivery Oxygen Delivery Room Air Medical Decision Making - Medical Records Medical records reviewed: Yes I reviewed the patient's medical records. - Lab Data Lab results reviewed: Yes I reviewed the patient's lab results. Result diagrams: 06/03/18 23:40 06/03/18 23:40 Lab Results 06/03/18 06/03/18 06/03/18 Range/Units 23:40 23:40 23:40 WBC 10.6 (4.3-11.1) K/mcL RBC 3.88 (3.82-4.97) M/mcL Hgb 9.6 L (11.5-15.4) g/dL Hct 31.3 L (35.3-44.9) % MCV 80.7 L (83.0-100.0) fL MCH 24.7 L (28.0-33.3) pg MCHC 30.7 L (31.6-35.5) g/dL RDW 19.2 H (11.5-14.5) % Plt Count 283 (140-400) K/mcL MPV 10.6 (9.4-12.4) fL Immature Gran % 0.8 (0-4) % Seg Neutrophils % 72.1 % Lymphocytes % 20.3 % Monocytes % 6.3 % Eosinophils % 0.1 % Basophils % 0.4 % Neutrophils # 7.7 (1.6-8.9) K/mcL Lymphocytes # 2.2 (0.6-4.6) K/mcL Monocytes # 0.7 (0.0-1.3) K/mcL Eosinophils # 0.0 (0.0-0.6) K/mcL Basophils # 0.0 (0.0-0.2) K/mcL PT 13.2 H (9.4-12.1) Seconds INR 1.2 APTT 30.1 (26.0-36.0) Seconds Sodium (136-145) mEq/L Potassium (3.5-5.1) mEq/L Chloride (98-107) mEq/L Carbon Dioxide (23-29) mEq/L BUN (6-20) mg/dL Creatinine (0.60-1.20) mg/dL Est GFR ( Amer) (> 60) Est GFR (Non-Af Amer) (> 60) BUN/Creatinine Ratio (6-26) Glucose (70-105) mg/dL Calculated Osmolality (280-300) Lactic Acid 2.7 H (0.5-2.2) mmol/L Calcium (8.6-10.3) mg/dL Phosphorus (2.7-4.5) mg/dL Magnesium (1.6-2.6) mg/dL Total Bilirubin (0.3-1.0) mg/dL Direct Bilirubin (0.0-0.2) mg/dL Indirect Bilirubin (0.0-1.2) mg/dL AST (13-39) Units/L ALT (7-52) Units/L Alkaline Phosphatase (34-104) Units/L Troponin I (< 0.04) ng/mL B-Natriuretic Peptide (Less than 100) pg/mL Serum Total Protein (6.4-8.9) g/dL Albumin (3.5-5.7) g/dL Globulin (2.4-3.5) g/dL Albumin/Globulin Ratio (1.1-2.2) Urine Color (Yellow) Urine Clarity (Clear) Urine pH (5.0-8.0) pH Units Ur Specific [place] (1.010-1.025) Urine Protein (Neg-Trace) mg/dL Urine Glucose (UA) (Normal) mg/dL Urine Ketones (Negative) mg/dL Urine Blood (Negative) Urine Nitrite (Negative) Urine Bilirubin (Negative) Urine Urobilinogen (Normal) mg/dL Ur Leukocyte Esterase (Negative) Ur Culture Indicated? (NO) 06/03/18 06/03/18 06/04/18 Range/Units 23:40 23:40 03:38 WBC (4.3-11.1) K/mcL RBC (3.82-4.97) M/mcL Hgb (11.5-15.4) g/dL Hct (35.3-44.9) % MCV (83.0-100.0) fL MCH (28.0-33.3) pg MCHC (31.6-35.5) g/dL RDW (11.5-14.5) % Plt Count (140-400) K/mcL MPV (9.4-12.4) fL Immature Gran % (0-4) % Seg Neutrophils % % Lymphocytes % % Monocytes % % Eosinophils % % Basophils % % Neutrophils # (1.6-8.9) K/mcL Lymphocytes # (0.6-4.6) K/mcL Monocytes # (0.0-1.3) K/mcL Eosinophils # (0.0-0.6) K/mcL Basophils # (0.0-0.2) K/mcL PT (9.4-12.1) Seconds INR APTT (26.0-36.0) Seconds Sodium 135 L (136-145) mEq/L Potassium 2.9 L (3.5-5.1) mEq/L Chloride 98 (98-107) mEq/L Carbon Dioxide 25 (23-29) mEq/L BUN 6 (6-20) mg/dL Creatinine 0.64 (0.60-1.20) mg/dL Est GFR ( Amer) > 60 (> 60) Est GFR (Non-Af Amer) > 60 (> 60) BUN/Creatinine Ratio 9 (6-26) Glucose 109 H (70-105) mg/dL Calculated Osmolality 278 L (280-300) Lactic Acid (0.5-2.2) mmol/L Calcium 7.9 L (8.6-10.3) mg/dL Phosphorus 3.3 (2.7-4.5) mg/dL Magnesium 1.9 (1.6-2.6) mg/dL Total Bilirubin 0.7 (0.3-1.0) mg/dL Direct Bilirubin 0.4 H (0.0-0.2) mg/dL Indirect Bilirubin 0.3 (0.0-1.2) mg/dL AST 27 (13-39) Units/L ALT 9 (7-52) Units/L Alkaline Phosphatase 171 H (34-104) Units/L Troponin I < 0.03 (< 0.04) ng/mL B-Natriuretic Peptide 167 H (Less than 100) pg/mL Serum Total Protein 6.4 (6.4-8.9) g/dL Albumin 2.4 L (3.5-5.7) g/dL Globulin 4.0 H (2.4-3.5) g/dL Albumin/Globulin Ratio 0.6 L (1.1-2.2) Urine Color Yellow (Yellow) Urine Clarity Clear (Clear) Urine pH 6.0 (5.0-8.0) pH Units Ur Specific [place] > 1.030 H (1.010-1.025) Urine Protein Negative (Neg-Trace) mg/dL Urine Glucose (UA) Normal (Normal) mg/dL Urine Ketones Negative (Negative) mg/dL Urine Blood Negative (Negative) Urine Nitrite Negative (Negative) Urine Bilirubin Negative (Negative) Urine Urobilinogen Normal (Normal) mg/dL Ur Leukocyte Esterase Negative (Negative) Ur Culture Indicated? NO (NO) - Radiology Data Radiology results reviewed: Yes I reviewed the patient's radiology results.
[2018-06-04] MEDS ORDERED: Naloxone 0.4 MG/ML INJ IVP PRN (04:24)
--- NOTE | 2018-06-04 04:24 | Internal Med History&Physical ---
Date of Encounter: 06/04/18 Time of Encounter: 04:15 Internal Medicine - H&P: HPI Chief complaint: Ulcer on sacrum Admitted From: Emergency Dept Plans for Post Hospital Care: Home History of present illness: Ms. Guthrie is a 32 year old female with past medical history of IV drug abuse, endocarditis, hepatitis C, feeding tube who presented to [facility] ED complaining of an ulcer on her sacrum. The ulcer has been present since October 2017 and has not healed but become more painful and increased in size. She is taking Motrin for the pain without relief. She lays on her side because it hurts too much to lay on her back or sit. She states she has been mobile. Additionally she has noted increase in bilateral lower extremity edema for about 6 days. She denies history of DVT and has not been immobilized. In October 2017 she reported that she had been diagnosed with endocarditis and was transferred to [facility] where she was in the ICU on IV antibiotics, and she still currently has feeding tube and unhealed tracheostomy hole. She has completed IV antibiotic therapy is to follow up with her PCP. She stated that the feeding tube is still in place because the [facility] physicians told her her PCP is to remove it and her PCP wanted [facility] physicians to remove it. She reported that she started using IV heroin again about 3 weeks ago where she injects into her arms. She is current smoker of 1ppd for 15 years. She is a full code. Of note, upon review of medical records on 05/31/2018 just 3 days ago she came to [facility] ED with the same complaints and she had a lumbar and thoracic MRI that was inconclusive due to motion artifacts. There was concern of possible guillain- barre due to complaints of paresthesias of lower extremities bilaterally. Neurology was consulted and recommended transfer to [facility]. At [facility] she stated she received antibiotics and then she left [facility] since she denied like the way that she was treated. In the ED, pelvis CT demonstrated acute or chronic osteomyelitis on upper coccyx. Chest x-rays stable compared to prior. Blood cultures were taken. Patient was given a dose of Zosyn and vancomycin. Past Med Surg Social Fam HX - Past Medical History Attestation: Yes The following information was validated with the patient. Source: patient Medical history: CHF, hepatitis, other Additional medical history: Hepatitis C Psychiatric history: no psych history - Past Surgical History Surgical History: , hysterectomy Additional surgical history: - Social History Smoking Status: Current every day smoker Smokeless Tobacco Status: No Alcohol use: none Drug use: opiates, IV Drug Use (Heroin) - Family History Father Hx Family Endocrine Disorder: Yes (DM) Internal Medicine - H&P: Meds Sulfamethoxazole/Trimeth DS [Bactrim DS] 1 each PO BID #20 tablet 02/17/18 [Rx] cephALEXin [Keflex] 500 mg PO QID #40 capsule 02/17/18 [Rx] 3 Allergy/AdvReac Type Severity Reaction Status Date / Time No Known Allergies Allergy Verified 06/03/18 22:36 All Systems PM: A 10-system review of systems was performed and is negative for pertinent findings except as documented above in the HPI. - Constitutional Constitutional: no chills, no fever(s) - EENT Eyes: no change in vision - Cardiovascular Cardiovascular ROS IM: no chest pain, no diaphoresis, no palpitations - Respiratory Respiratory: cough, no dyspnea, no wheezing - Gastrointestinal Gastrointestinal: no abdominal pain, no diarrhea, no nausea, no vomiting - Genitourinary Genitourinary: no dysuria, no hematuria - Musculoskeletal Musculoskeletal ROS IM: back pain - Integumentary Integumentary IM: erythema (Right hand), skin ulcer (Sacrum), sores - Neurological Neurological ROS: no dizziness - Constitutional Vitals: Temp Pulse Resp BP Pulse Ox 99.1 F 102 17 96/53 99 06/03/18 22:36 06/04/18 02:55 06/04/18 02:55 06/04/18 02:55 06/04/18 02:55 General appearance: Present: A&O X 3, pleasant, no acute distress - Head Head exam: Present: atraumatic, normocephalic - Eye Eye exam: Present: normal appearance. Absent: scleral icterus - ENT ENT exam: Present: mucous membranes dry - Expanded ENT Exam Throat exam: Absent: normal inspection (hole in throat from prior tracheostomy) - Respiratory Respiratory exam: Present: CTAB. Absent: wheezes - Cardiovascular Cardiovascular exam: Present: RRR, +S1, +S2. Absent: gallop - GI/Abdominal GI/Abdominal exam: Present: normal bowel sounds, soft, tenderness (around feeding tube). Absent: firm, guarding, rigid - Extremities Exam Extremities exam: Present: pedal edema (Bilateral), radial pulses palpable and symmetrical - Expanded Lower Extremities Exam Lower Leg exam: Present: swelling (Bilateral 2+ pitting edema) - Neurological Exam Neurological exam: Present: alert, oriented X3 - Psychiatric Psychiatric exam: Present: normal affect, normal mood - Skin Skin exam: Present: erythema (Right hand on dorsal surface has flunctuant erythematous lesion). Absent: intact (3 cm grade 4 ulcer with white granulation tissue on sacrum) Internal Med - H&P Results - Labs CBC & Chem 7: 06/03/18 23:40 06/03/18 23:40 Labs: Short CBC 06/03/18 Range/Units 23:40 WBC 10.6 (4.3-11.1) K/mcL Hgb 9.6 L (11.5-15.4) g/dL Hct 31.3 L (35.3-44.9) % Plt Count 283 (140-400) K/mcL Neutrophils # 7.7 (1.6-8.9) K/mcL BMP 06/03/18 23:40 Sodium 135 L Potassium 2.9 L Chloride 98 Carbon Dioxide 25 BUN 6 Creatinine 0.64 Glucose 109 H Calcium 7.9 L Cardiac Enzymes 06/03/18 Range/Units 23:40 Troponin I < 0.03 (< 0.04) ng/mL Liver Function 06/03/18 Range/Units 23:40 Total Bilirubin 0.7 (0.3-1.0) mg/dL Direct Bilirubin 0.4 H (0.0-0.2) mg/dL AST 27 (13-39) Units/L ALT 9 (7-52) Units/L Alkaline Phosphatase 171 H (34-104) Units/L Albumin 2.4 L (3.5-5.7) g/dL Urine 06/04/18 Range/Units 03:38 Urine Color Yellow (Yellow) Urine Clarity Clear (Clear) Urine pH 6.0 (5.0-8.0) pH Units Ur Specific [place] > 1.030 H (1.010-1.025) Urine Protein Negative (Neg-Trace) mg/dL Urine Glucose (UA) Normal (Normal) mg/dL - Impressions ITS Impressions Pelvis CT 06/04/18 00:00 IMPRESSION: Suspected changes of either acute or chronic osteomyelitis in the upper coccyx. D/ / Juan Ellis MD / Juan Ellis MD Interpreting Provider: Juan Ellis MD Chest X-Ray 06/04/18 23:49 IMPRESSION: Stable chest. D/ / Juan Ellis MD / Juan Ellis MD Interpreting Provider: Juan Ellis MD - Assessment and plan (1) Osteomyelitis of vertebra, sacral and sacrococcygeal region Current Visit: Yes Status: Acute Assessment and plan: Acute or chronic osteomyelitis on upper coccyx demonstrated by pelvis CT. Ulcer has been present since October 2017 when she was at [facility] being treated for endocarditis and has become more painful and increased in size. Stage IV decubitus Ulcer is 3 cm in diameter. afebrile, WBC WNL plan -continue IV Zosyn -continue IV vancomycin -blood cultures pending -consult wound care for biopsy (2) Bilateral lower extremity edema Current Visit: Yes Status: Acute Assessment and plan: May be secondary to hypoalbuminemia since albumin is 2.4. Possibly worsening CHF however she does not present with symptoms of dyspnea or RALES on exam. BNP 167. Hepatitis C however no clinical manifestations of cirrhosis with normal INR, platelets, no physical manifestations. Unlikely to be DVT acidosis bilateral and she has 0 wells score. -Consult nutrition due to poor nutritional status, likely lacking protein -patient may need albumin, continue to monitor (3) History of endocarditis Current Visit: Yes Status: Acute Assessment and plan: She reported history of endocarditis secondary to IV drug abuse for which she was treated at [facility]'s ICU where she completed IV antibiotic therapy. She is now to follow up with her PCP. (4) Heroin abuse Current Visit: No Status: Chronic Assessment and plan: She reported she has started injecting heroin into her arms again for about 3 weeks now. Track bradshaw noted bilaterally on upper extremities -she was counseled on the importance of cessation of drug use in that she could overdose and or she could have endocarditis again and . -Consulted social work for discharge planning (5) Hypokalemia Current Visit: Yes Status: Acute Assessment and plan: Hypokalemia potassium 2.9 -patient received 40mg potassium PO in ED, will give another 40 IV -monitor and supplement as needed -magnesium pending (6) Lactic acidosis Current Visit: Yes Status: Acute Assessment and plan: Lactic acid 2.7 -will continue to monitor with repeat lactic acid (7) Anemia Current Visit: Yes Status: Acute Assessment and plan: Anemia likely of chronic disease or iron deficiency. -Hemoglobin 9.6, MCV 80.7 -no obvious active bleeding -iron studies pending Qualifiers: Chronic kidney disease stage: stage 4 (severe) Qualified Code(s): N18.4 - Chronic kidney disease, stage 4 (severe); D63.1 - Anemia in chronic kidney disease (8) Tobacco abuse Current Visit: No Status: Acute Assessment and plan: Current one pack per day smoker for about 15 years she was counseled on smoking cessation. (9) Hepatitis C Current Visit: Yes Status: Acute Assessment and plan: She reported having hepatitis C. Qualifiers: Viral hepatitis chronicity: unspecified Qualified Code(s): B19.20 - Unspecified viral hepatitis C without hepatic coma (10) DVT prophylaxis Current Visit: No Status: Acute Assessment and plan: Heparin SQ - Time Spent With Patient Total time spent is greater than 50% in coordination of care (as documented) at patient's floor/unit and/or counseling patient:
[2018-06-04] MEDS ORDERED: Acetaminophen 325 MG TABLET PO PRN (04:26)
[2018-06-04] MEDS ORDERED: Ibuprofen 600 MG TABLET PO PRN (04:28)
[2018-06-04] MEDS ORDERED: *HR* FentaNYL (PF) 100 MCG/2 ML VIAL ONE (04:29)
[2018-06-04] MEDS: *HR* FentaNYL (PF) 100 MCG/2 ML VIAL IVP ONE ×2 (04:31→04:32)
[2018-06-04] MEDS ORDERED: Potassium Chloride 40 MEQ, Lidocaine 1% 2 ML in D5% in Water 500 ML IVPB ONE (04:52)
[2018-06-04] MEDS ORDERED: 0.9 % Sodium Chloride 250 ML IVC ONE (09:33)
[2018-06-04] MEDS ORDERED: *HR* Promethazine 25 MG/ML VIAL IVP PRN (09:35)
[2018-06-04] MEDS ORDERED: 0.9 % Sodium Chloride 250 ML ONE (09:36)
[2018-06-04] MEDS ORDERED: Ibuprofen 800 MG TABLET PO PRN (09:49)
[2018-06-04] MEDS: Piperacillin/Tazobactam 3.375 GM in 0.9 % Sodium Chloride Mini Bag 100 ML IVPB SCH ×2 (11:03→16:04)
--- NOTE | 2018-06-04 11:03 | Infectious Disease Consult ---
Date of Encounter: 06/04/18 Time of Encounter: 11:01 Infectious Disease HPI - Data of Consult Patient: new to practice Consult date: 06/04/18 Requesting Physician: Eusebia Polo MD Primary Care Provider: aDna Madsen - Consult Narrative Reason for consult: Coccyx OM History of present illness: Ms. 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 She was admitted to the hospital June 03 for osteomyelitis, bilateral lower extremity edema, and history of endocarditis. We are consulted June 04 for further recommendations for osteomyelitis of the coccyx. Briefly, the patient is a 32-year-old female with past medical history as stated above. The patient presented to the emergency department with complaints of a six-day history of bilateral lower extremity edema, and worsening coccyx wound. The patient is refusing to provide me with any information regarding the events leading up to her hospitalization, therefore, most of the information is obtained from the medical record. Review of the medical record reveals that the patient has been in and out of the hospital between [facility], and [facility] multiple times since April 2017. At that time, she was diagnosed with MSSA bacteremia with septic emboli to the lungs, but signed out AMA. After that, the patient was in and out of the hospital [facility] [place] multiple times including April by 1419 was transferred to [facility] ER. Her blood cultures at that time grew out MSSA, but again the patient left [facility]. In October 2017, she presented to the emergency department in septic shock. She was transferred to [facility] and discharged in November. At that time, she had a transthoracic echo that showed tricuspid valve endocarditis. Blood cultures were negative, but she was treated based on previous blood cultures that were positive for MSSA, Serratia, Strep, and Enterobacter cloacae. She also developed a sacral wound and osteomyelitis of the coccyx for which she did not receive an entire course of treatment and C. Diff colitis. Based on the records , she was discharged to [facility] in November and did complete the course of treatment for endocarditis, but left before completing treatment for osteomyelitis. Yesterday, the patient presented to the emergency department. Upon arrival, the patient was afebrile, but was tachycardic and mildly hypotensive. White blood cell count was normal. She was noted to have a right wrist abscess with cellulitis, but refused a bedside I&D. Lactic acid was elevated at 2.7. Alkaline phosphatase is elevated at 171. The cultures were obtained 2 sets are pending. She had a chest x-ray that was interpreted by the radiologist as a stable chest. Pelvis CT showed findings consistent with acute versus chronic osteomyelitis of the coccyx. She was transferred here for further evaluation and treatment. She was started empirically on IV Vanco and Zosyn. We have been asked to evaluate and make further recommendations. My exam today, the patient is resistant to the physical exam and is on antibiotics questions. She initially refused to allow me to assess her coccyx wound until she received medication from her nurse. After medication, the patient was still resistant, but finally agreed to allow me to assess her wound. She does not provide me with any review of systems information is that she hurts all over and does not feel good. CC: Eusebia Polo MD Past Med Surg Social Fam HX - Past Medical History Source: old records reviewed, nursing notes reviewed Medical history: CHF, hepatitis, other (Tricuspid valve endocarditis, sacral osteomyelitis) Additional medical history: Hepatitis C Psychiatric history: no psych history - Past Surgical History Surgical History: , hysterectomy Additional surgical history: - Social History Smoking Status: Current every day smoker Packs per day: 1 Smokeless Tobacco Status: No Alcohol use: none Drug use: opiates, IV Drug Use (Heroin) - Family History Father Hx Family Endocrine Disorder: Yes (DM) Infectious Disease-CN:Meds No Known Home Drugs 06/04/18 [History] 3 Allergy/AdvReac Type Severity Reaction Status Date / Time No Known Allergies Allergy Verified 06/03/18 22:36 ROS unobtainable: other (Patient refuses to answer questions.) Exam - Constitutional Vitals: Temp Pulse Resp BP Pulse Ox 94.4 F L 74 22 109/69 95 06/04/18 10:29 06/04/18 10:29 06/04/18 10:29 06/04/18 10:29 06/04/18 10:29 General appearance: average body habitus, mild distress, no cooperative - Head Head exam: Present: atraumatic, normal inspection, normocephalic - Eye Additional comments: Refuses exam - Neck Additional comments: Tracheal stoma with small amount of purulent yellow drainage. - Respiratory Respiratory exam: Present: CTAB. Absent: rales, respiratory distress, rhonchi, wheezes Additional comments: Moist cough noted on exam. - Cardiovascular Cardiovascular exam: Present: RRR, tachycardia - GI/Abdominal Additional comments: PEG tube noted with small amount of yellow drainage noted from the stoma. PEG tube currently clamped. Refuses additional abdominal exam. - Extremities Exam Extremities exam: Present: pedal edema (2+ BLE). Absent: joint swelling, tenderness - Back Exam Additional comments: Stage III wound noted to the coccyx with no foul odor or drainage. Patient refuses to allow me to measure the wound. Screams out in pain with culture specimen collection. - Neurological Exam Neurological exam: Present: alert, oriented X3, no focal deficits ([place] x 4 spontaneously.) - Psychiatric Psychiatric exam: Present: agitated, anxious. Absent: normal affect, normal mood - Skin Skin exam: Present: dry, intact, normal color, warm Infectious Disease CN: Results - Labs CBC & Chem 7: 06/03/18 23:40 06/03/18 23:40 Cultures: Cultures 06/04/18 00:23 Blood Culture - Preliminary Peripheral Venipuncture Culture is incubating and being continuously monitored for growth. Final report to follow. 06/03/18 23:40 Blood Culture - Preliminary Peripheral Venipuncture Culture is incubating and being continuously monitored for growth. Final report to follow. Consult Discharge Plan - Plan Referrals: Dana Madsen CNP [Primary Care Provider] - - Attending Attestation I examined this patient and my medical decision-making was reviewed with the Resident Physician. I agree with the documented findings, disposition and treatment plan as described except to the extent set forth below. This is an addendum to original report dictated by Ana Vanegas CNP. Please refer to Ana's note for full details. Patient is a 32-year-old woman with extensive past medical history including hepatitis C, infective endocarditis of the tricuspid valve with septic emboli, history of acute respiratory failure due to endocarditis status post trach and PEG recently, osteomyelitis of the sacrum was admitted for osteomyelitis Trav of the coccyx, bilateral lower extremity edema and history of endocarditis. We are consulted for evaluation. Patient is having significant cough. Has significant purulence coming out of her tracheostomy. Patient appears ill. Has very poor dentition. Patient also having a lot of pain in the coccygeal area. (1) Cough Status: Acute Assessment and plan: Patient has a persistent productive cough. Etiology unclear: bronchitis vs. PNA vs. other. CXR showed multiple lucencies seen in the right lateral lung similar to previous studies. Send sputum for culture. Get CT chest to evaluate. Check RIP. Continue Vancomycin IV. Pharmacy to dose. Goal trough ~15. Continue Zosyn 3.375 grams IV Q8H. Duration of treatment depends on the clinical picture. Monitor renal function and for drug toxicity and dose-adjust antibiotics. (2) Abscess or cellulitis of wrist Status: Acute Assessment and plan: Location: Right wrist. Causative organism unclear. Bedside UTS in the ER showed loculated fluid collection, but patient refused I & D. Ortho consulted. Patient continues to refuse I & D. (3) Osteomyelitis of vertebra, sacral and sacrococcygeal region Status: Acute Assessment and plan: Location: Coccyx. Causative organism unclear. Previously treated for E. cloacae, K. pneumoniae, and Citrobacter based on wound culture in January. Based on medical record, patient did not complete course of treatment. CT of the pelvis showed findings consistent with acute or chronic OM. Sacral wound noted. Difficult to stage due to patient non-complaint with exam. Likely Stage III or IV. Get wound cultures now (aerobic and anaerobic), Check ESR and CRP. Recommend IR consult for biopsy. Continue Vancomycin IV. Pharmacy to dose. Goal trough ~15. Continue Zosyn 3.375 grams IV Q8H. Duration of treatment depends on the clinical picture. Monitor renal function and for drug toxicity and dose-adjust antibiotics. (4) Sacral decubitus ulcer Status: Acute Assessment and plan: Non-healing pressure ulcer. Stage III or Stage IV. Patient noncompliant with exam. Clinically, does not appear infected. Wound care and general surgery consult to assist with management. Qualifiers: Pressure injury stage: unspecified pressure injury stage Qualified Code(s) : L89.159 - Pressure ulcer of sacral region, unspecified stage (5) Lactic acidosis Status: Acute Assessment and plan: Lactic acid elevated at 2.7 on exam. Etiology unclear. Resolved. (6) Bilateral lower extremity edema Status: Acute Assessment and plan: Etiology unclear, but likely third spacing from poor nutritional status. Venous doppler studies negative. Further workup and management per the primary team. (7) Anemia Status: Acute Assessment and plan: Appears chronic. Likely multifactorial. No acute bleeding noted on exam. Further workup and management per the primary team. Qualifiers: Chronic kidney disease stage: stage 4 (severe) (8) Hypokalemia Status: Acute (9) History of endocarditis Status: Acute Assessment and plan: Diagnosed with tricuspid valve endocarditis in October 2017. Causative organism unclear as the blood cultures were negative. Treated based on previous blood culture results: 04/2017 MSSA and Stenotrophomonas, 09/08/17 Serratia marsescens, 09/14/17 Serratia marsescens and Strep species, and 10/27/17 Enterobacter cloace. Completed course of IV Ertapenem in November per [facility] recommendations. Blood cultures pending x 2 sets. (10) Hepatitis C Status: Acute Qualifiers: Viral hepatitis chronicity: unspecified Hepatic coma status: without hepatic coma Qualified Code(s): B19.20 - Unspecified viral hepatitis C without hepatic coma (11) Heroin abuse Status: Chronic (12) Noncompliance with treatment plan Status: Acute Assessment and plan: Patient refuses physical exams, testing, treatments. She has signed out AMA multiple times in the past.
[2018-06-04] MEDS: *HR* LORazepam 2 MG/ML VIAL IVP SCH ×2 (11:35→16:04)
[2018-06-04] MEDS ORDERED: Furosemide 20 MG/2 ML VIAL IVP SCH (12:30)
--- NOTE | 2018-06-04 14:02 | Event Note ---
Date of Encounter: 06/04/18 Time of Encounter: 13:59 Patient receiving IV antibiotics. Complains of continued pain. In the right forearm just above her wrist. Consult orthopedics for evaluation and possible I &D. Infectious disease also consulted. Patient does have yellowish discoloration and discharge around her PEG site. Will discuss with gastroenterology as well of PEG tube as she is not using it anymore.
[2018-06-04] MEDS ORDERED: *HR* Heparin 5,000 UNIT/ML VIAL ONE (15:59)
[2018-06-04 16:03] VITALS: BP 121/70
[2018-06-04] MEDS ORDERED: *HR* Heparin 5,000 UNIT/ML VIAL SQ SCH (18:00)
--- NOTE | 2018-06-04 18:23 | Orthopedic Consult Note ---
Date of Encounter: 06/04/18 Time of Encounter: 18:09 Assessment and Plan (1) Abscess or cellulitis of wrist Current Visit: Yes Status: Acute The diagnosis and treatment recommendations were discussed with the patient. Recommended I&D of the fluctuant area of her right forearm. Patient refuses multiple times, even after discussed that refusing treatment for this lesion could cause worsening of her infection and of her symptoms, and can lead to chronic infectious issue and threaten the limb. Patient still refuses intervention for the forearm. Will s/o, call if patient desires changes to treatment plan. History of Present Illness HPI: Ms. Guthrie is a 32 year old female with past medical history of IV drug abuse, endocarditis, hepatitis C, feeding tube, unhealed tracheostomy who presented to [facility] ED with a sacral decubitus ulcer with chronic osteomyelitis, present since October 2017 and recently increasing in size. Majority of PMHx from medical record due to patient's mental status. Patient has started using heroin again over past few weeks and has fluctuant area on her right forearm. She was recently admitted to [facility] for the same complaints, was given IV antibiotics and then left AMA. Several days later returned to [place] and was admitted. Drainage was recommended for the right forearm in the ED but she refused. Orthopedics was consulted for possible drainage of the lesion. Past Med Surg Social Fam HX - Past Medical History Medical history: CHF, hepatitis, other (Tricuspid valve endocarditis, sacral osteomyelitis) Additional medical history: Hepatitis C Psychiatric history: no psych history - Past Surgical History Surgical History: , hysterectomy Additional surgical history: - Social History Smoking Status: Current every day smoker Packs per day: 1 Smokeless Tobacco Status: No Alcohol use: none Drug use: opiates, IV Drug Use (Heroin) - Family History Father Hx Family Endocrine Disorder: Yes (DM) Medications and Allergies No Known Home Drugs 06/04/18 [History] 3 Allergy/AdvReac Type Severity Reaction Status Date / Time No Known Allergies Allergy Verified 06/03/18 22:36 ROS unobtainable: due to mental status All Systems Reviewed: The remainder of the systems were reviewed and are negative Physical Exam - Constitutional Vitals: Temp Pulse Resp BP Pulse Ox 94.4 F L 79 20 121/70 100 06/04/18 16:03 06/04/18 16:03 06/04/18 16:03 06/04/18 16:03 06/04/18 16:03 Exam: Consult Exam: Constitutional -Vitals reviewed -The patient is agitated Psychiatric -The patient is oriented to person and place but gives limited responses to questions Respiratory: -Respiratory effort labored with unhealed tracheostomy site Abdomen: -Soft abdomen, PEG tube in place -Non tender Left upper extremity: -No deformities. The overlying skin is intact. Track bradshaw present -Spontaneously moving extremity -Radial pulse is present; Fingers have good capillary refill. Right upper extremity: -Fluctuant area over right forearm. No overlying erythema or drainage. Mild TTP. The overlying skin is intact. Track bradshaw present. -Spontaneously moving extremity -Radial pulse is present; Fingers have good capillary refill. Left lower extremity: -No deformities. The overlying skin is intact. No obvious signs of acute trauma. -Spontaneously moving extremity -Toes have good capillary refill. Right lower extremity: -No deformities. The overlying skin is intact. No obvious signs of acute trauma. -Spontaneously moving extremity -Toes have good capillary refill. Results - Labs Result Diagrams: 06/03/18 23:40 06/03/18 23:40 Labs: Abnormal lab results Hgb 9.6 g/dL (11.5-15.4) L 06/03/18 23:40 Hct 31.3 % (35.3-44.9) L 06/03/18 23:40 MCV 80.7 fL (83.0-100.0) L 06/03/18 23:40 MCH 24.7 pg (28.0-33.3) L 06/03/18 23:40 MCHC 30.7 g/dL (31.6-35.5) L 06/03/18 23:40 RDW 19.2 % (11.5-14.5) H 06/03/18 23:40 PT 13.2 Seconds (9.4-12.1) H 06/03/18 23:40 Sodium 135 mEq/L (136-145) L 06/03/18 23:40 Potassium 2.9 mEq/L (3.5-5.1) L 06/03/18 23:40 Glucose 109 mg/dL (70-105) H 06/03/18 23:40 Calculated Osmolality 278 (280-300) L 06/03/18 23:40 Calcium 7.9 mg/dL (8.6-10.3) L 06/03/18 23:40 Direct Bilirubin 0.4 mg/dL (0.0-0.2) H 06/03/18 23:40 Alkaline Phosphatase 171 Units/L (34-104) H 06/03/18 23:40 B-Natriuretic Peptide 167 pg/mL (Less than 100) H 06/03/18 23:40 Albumin 2.4 g/dL (3.5-5.7) L 06/03/18 23:40 Globulin 4.0 g/dL (2.4-3.5) H 06/03/18 23:40 Albumin/Globulin Ratio 0.6 (1.1-2.2) L 06/03/18 23:40 Ur Specific [place] > 1.030 (1.010-1.025) H 06/04/18 03:38 All other labs normal. Consult Discharge Plan - Plan Referrals: Dana Madsen, [place] [Primary Care Provider] -
[2018-06-04] MEDS ORDERED: Aminoglycoside Consult 1 EACH MC ONE (19:59)
--- NOTE | 2018-06-04 20:29 | Event Note ---
Date of Encounter: 06/04/18 Time of Encounter: 20:17 The patient insisting to leave AMA. Initially, she was disoriented to time, but then was alert and oriented x3. She asked if she cold go outside and around the corner to smoke and she would be be right back. I explained hospital policy to her and her male friend. I offered her a nicotine patch but she refused it. I explained the severity of her illnesses and she still wanted to leave. The patient denied wanting to hurt herself. Her male torch solderer trying to talk her into staying the entire time. He indicated that he could not really care for her and he thought she would be back in the ED tonight. I told the patient and her torch solderer to return o ED when needed. Patient began rolling herself down the hallway in her wheelchair and he then took her to the elevators. The patient signed AMA paperwork prior to departure.
--- NOTE | 2018-06-05 07:08 | Electrocardiograph Report ---
[address] [place], [place] [address] Test Date: 2018-06-04 Pat Name: Jazmyne Guthrie Department: 112 Room: 2A Gender: F Director Of Business Development: : 1985 Requested By: Eusebia Polo Order Number: [id number] Reading MD: Jorge Cornejo Measurements Intervals [place] Rate: 89 P: 76 AK: 156 QRS: 88 QRSD: 85 T: -33 QT: 371 QTc: 418 Interpretive Statements SINUS RHYTHM Poor R wave progression ANTERIOR ISCHEMIA Electronically Signed On 06-05-2018 7:07:05 EDT by Jorge Cornejo
== END 2018-06-04 20:00 | disposition left against medical advice (07) | DRG 344 ==
LOC: 2ANU 22:29 → EMEROO 22:29 → SUATTDRO 06-04 04:21 → 2ANU 06-04 05:23
PROVIDERS: ADMIT Pediatrics; ATTEND Internal Medicine

== ENCOUNTER 2018-07-10 09:05 | Observation (INO) ==
--- NOTE | 2018-07-10 09:36 | Emergency Department Note ---
Disposition Clinical Impression: Acute anxiety, Opiate dependence, continuous, Benzodiazepine dependence, Withdrawal complaint, Hypokalemia Depression Qualifiers: Depression Type: reactive depression Qualified Code(s): F32.9 - Major depressive disorder, single episode, unspecified Disposition: Admitted As Inpatient Condition: Good Referrals: Dana Madsen CNP [Primary Care Provider] - Forms: ED Satisfaction Letter Time of Disposition: 13:07 General Adult HPI - General Chief complaint: ED Psychiatric Symptoms Stated complaint: withdrawal from heroin & Xanax Time Seen by Provider: 07/10/18 09:11 Nursing Notes Reviewed: Yes Vital Signs Reviewed: Yes - History of Present Illness HPI Narrative: I have reperformed and reviewed the history documented by the medical student, and I confirm its accuracy except as noted below. Pain Scale: 0 - Related Data Home Medications Medication Instructions Recorded Confirmed No Known Home Drugs 06/04/18 06/10/18 Allergies Allergy/AdvReac Type Severity Reaction Status Date / Time No Known Allergies Allergy Verified 07/10/18 13:08 All systems ED: reviewed and negative except as stated. Review of Systems: As Per HPI Constitutional: Denies: fever, chills Cardiovascular: Denies: chest pain, palpitations, syncope Respiratory: Denies: cough, dyspnea Gastrointestinal: Reports: nausea, vomiting, diarrhea. Denies: abdominal pain, hematemesis, melena, hematochezia Genitourinary: Denies: urgency, dysuria, frequency, hematuria Musculoskeletal: Denies: back pain, neck pain Integumentary: Denies: rash Neurological: Reports: weakness. Denies: headache Past Medical History - Past Medical History Attestation: Yes The following information was validated with the patient. 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 OPERATOR CANE CUTTER history - Social History Smoking Status: Current every day smoker Smokeless Tobacco Status: No Alcohol use: Reports: none Drug use: Reports: opiates, IV Drug Use Physical Exam - General Limitations: no limitations General appearance: alert, in no apparent distress, other (Appears older than stated age.) - Head Head exam: atraumatic, normocephalic, normal inspection - Eye Eye exam: Present: normal appearance, PERRL, EOMI - ENT ENT exam: normal exam, normal oropharynx, mucous membranes moist - Neck Neck exam: Present: normal inspection, full ROM, trachea midline - Chest Chest inspection: Present: normal inspection, symmetric chest wall rise - Respiratory Respiratory exam: Present: normal lung sounds bilaterally. Absent: respiratory distress, accessory muscle use - Cardiovascular Cardiovascular exam: Present: regular rate, normal rhythm, diastolic murmur ( Very mild.) - Abdominal Exam Abdominal exam: Present: soft, Non-Tender, organomegaly, Casarez's sign, Rovsing' s sign, tenderness at McBurney's Point. Absent: tenderness, distention, guarding, rebound, rigidity - Extremities Exam Extremities exam: Present: normal inspection, full ROM, normal capillary refill. Absent: tenderness, pedal edema - Back Exam Back exam: Present: normal inspection, full ROM. Absent: tenderness - Neurological Exam Neurological exam: Present: alert, oriented X3 - Psychiatric Psychiatric exam: Present: normal affect, normal mood - Skin Skin exam: Present: warm, dry, normal color, other (Ulcerative lesions to buttocks.). Absent: rash, cyanosis, diaphoresis Course Course Narrative: Female patient presenting to the emergency department requesting admission to the hospital to detox from skin popping heroin use as well as chronic benzo use. Last time she takes Xanax was approximately 2 days ago. She takes to purple pills every day. And has for the past 8 years. She states that she was admitted to the hospital in October for endocarditis. She did go through her full treatment and it was recommended that she have a valve replacement however the patient needed her dentition removed. She has not made an appointment for this at this time. She reports a generalized malaise. Reports nausea vomiting and diarrhea. No gross abdominal pain. No chest pain no shortness of breath. She states when she did have endocarditis she did have the pain at that time. She is not febrile she is not tachycardic. She is mentating appropriately. I do not appreciate any infected lesions to her arms or legs. She states that she has withdrawn from meds before. She has had withdrawal seizures from withdrawing from the benzos before. Patient denies any sexual trafficking however she states she does do tricks for drugs. Patient states she was septic in October. Again patient appears well while sitting in bed. She does appear significantly older than her stated age. She does not appear to be in any distress. Not tachycardic not hypotensive. We have provided her with Librium as well as Bentyl for her diarrhea. Patient was found be mildly hypokalemic. We will replace this. We will admit to the patient for further detox. Patient does have multiple cavitary lesions on her chest x-ray however these were present on the previous. She denies any shortness of breath at this time. - Consultations Consultation #1: Dr Dyson accepted Pt in stable condition. Time: 13:31 Vital Signs Temperature 98.4 F 07/10/18 09:08 Pulse Rate 80 07/10/18 09:08 Respiratory Rate 20 07/10/18 09:08 Blood Pressure 129/84 07/10/18 09:08 O2 Sat by Pulse Oximetry 99 07/10/18 09:08 Temperature 98.4 F 07/10/18 09:20 Pulse Rate 73 07/10/18 12:32 Respiratory Rate 22 07/10/18 12:32 Blood Pressure 120/95 07/10/18 12:32 O2 Sat by Pulse Oximetry 98 07/10/18 12:32 Oxygen Delivery Oxygen Delivery Room Air Medical Decision Making - Medical Records Medical records reviewed: Yes I reviewed the patient's medical records. - Lab Data Lab results reviewed: Yes I reviewed the patient's lab results. Result diagrams: 07/10/18 10:38 07/10/18 10:38 Lab Results 07/10/18 07/10/18 07/10/18 Range/Units 10:38 10:38 10:38 WBC 6.5 (4.3-11.1) K/mcL RBC 3.86 (3.82-4.97) M/mcL Hgb 10.6 L (11.5-15.4) g/dL Hct 32.6 L (35.3-44.9) % MCV 84.5 (83.0-100.0) fL MCH 27.5 L (28.0-33.3) pg MCHC 32.5 (31.6-35.5) g/dL RDW 18.1 H (11.5-14.5) % Plt Count 193 (140-400) K/mcL MPV 11.3 (9.4-12.4) fL Immature Gran % 0.3 (0-4) % Seg Neutrophils % 64.3 % Lymphocytes % 29.6 % Monocytes % 4.4 % Eosinophils % 1.1 % Basophils % 0.3 % Neutrophils # 4.2 (1.6-8.9) K/mcL Lymphocytes # 1.9 (0.6-4.6) K/mcL Monocytes # 0.3 (0.0-1.3) K/mcL Eosinophils # 0.1 (0.0-0.6) K/mcL Basophils # 0.0 (0.0-0.2) K/mcL Sodium 140 (136-145) mEq/L Potassium 3.2 L (3.5-5.1) mEq/L Chloride 104 (98-107) mEq/L Carbon Dioxide 27 (23-29) mEq/L BUN 7 (6-20) mg/dL Creatinine 0.51 L (0.60-1.20) mg/dL Est GFR ( Amer) > 60 (> 60) Est GFR (Non-Af Amer) > 60 (> 60) BUN/Creatinine Ratio 14 (6-26) Glucose 83 (70-105) mg/dL Calculated Osmolality 287 (280-300) Lactic Acid (0.5-2.2) mmol/L Calcium 9.0 (8.6-10.3) mg/dL Total Bilirubin (0.3-1.0) mg/dL Direct Bilirubin (0.0-0.2) mg/dL Indirect Bilirubin (0.0-1.2) mg/dL AST (13-39) Units/L ALT (7-52) Units/L Alkaline Phosphatase (34-104) Units/L Serum Total Protein (6.4-8.9) g/dL Albumin (3.5-5.7) g/dL Globulin (2.4-3.5) g/dL Albumin/Globulin Ratio (1.1-2.2) Serum , Qual Negative (Negative) Urine Color (Yellow) Urine Clarity (Clear) Urine pH (5.0-8.0) pH Units Ur Specific [place] (1.010-1.025) Urine Protein (Neg-Trace) mg/dL Urine Glucose (UA) (Normal) mg/dL Urine Ketones (Negative) mg/dL Urine Blood (Negative) Urine Nitrite (Negative) Urine Bilirubin (Negative) Urine Urobilinogen (Normal) mg/dL Ur Leukocyte Esterase (Negative) Urine Microscopic RBC (0-3) per hpf Urine Microscopic WBC (0-3) per hpf Ur Squamous Epith Cells (None-Few) per lpf Urine Bacteria (None-Few) per hpf Hyaline Casts (None-Few) per lpf Salicylates < 2.5 L (15.0-30.0) mg/dL Urine Opiates Screen (Jirhfp=201) ng/mL Acetaminophen < 10 L (10-20) mcg/mL Ur Barbiturates Screen (Cippru=496) ng/mL Ur Phencyclidine Scrn (Cutoff=25) ng/mL Ur Amphetamines Screen (Locwgn=6505) ng/mL U Benzodiazepines Scrn (Fdxund=552) ng/mL Urine Cocaine Screen (Cutoff= 300) ng/mL U Marijuana (THC) Screen (Cutoff = 50) ng/mL Ur Drug Screen Interp Ethyl Alcohol < 10 (Less than 10) mg/dL 07/10/18 07/10/18 07/10/18 Range/Units 10:38 10:38 10:50 WBC (4.3-11.1) K/mcL RBC (3.82-4.97) M/mcL Hgb (11.5-15.4) g/dL Hct (35.3-44.9) % MCV (83.0-100.0) fL MCH (28.0-33.3) pg MCHC (31.6-35.5) g/dL RDW (11.5-14.5) % Plt Count (140-400) K/mcL MPV (9.4-12.4) fL Immature Gran % (0-4) % Seg Neutrophils % % Lymphocytes % % Monocytes % % Eosinophils % % Basophils % % Neutrophils # (1.6-8.9) K/mcL Lymphocytes # (0.6-4.6) K/mcL Monocytes # (0.0-1.3) K/mcL Eosinophils # (0.0-0.6) K/mcL Basophils # (0.0-0.2) K/mcL Sodium (136-145) mEq/L Potassium (3.5-5.1) mEq/L Chloride (98-107) mEq/L Carbon Dioxide (23-29) mEq/L BUN (6-20) mg/dL Creatinine (0.60-1.20) mg/dL Est GFR ( Amer) (> 60) Est GFR (Non-Af Amer) (> 60) BUN/Creatinine Ratio (6-26) Glucose (70-105) mg/dL Calculated Osmolality (280-300) Lactic Acid 2.1 (0.5-2.2) mmol/L Calcium (8.6-10.3) mg/dL Total Bilirubin 0.5 (0.3-1.0) mg/dL Direct Bilirubin 0.1 (0.0-0.2) mg/dL Indirect Bilirubin 0.4 (0.0-1.2) mg/dL AST 17 (13-39) Units/L ALT 13 (7-52) Units/L Alkaline Phosphatase 119 H (34-104) Units/L Serum Total Protein 7.3 (6.4-8.9) g/dL Albumin 3.4 L (3.5-5.7) g/dL Globulin 3.9 H (2.4-3.5) g/dL Albumin/Globulin Ratio 0.9 L (1.1-2.2) Serum , Qual (Negative) Urine Color Yellow (Yellow) Urine Clarity Clear (Clear) Urine pH 6.0 (5.0-8.0) pH Units Ur Specific [place] 1.030 H (1.010-1.025) Urine Protein 30 H (Neg-Trace) mg/dL Urine Glucose (UA) Normal (Normal) mg/dL Urine Ketones Negative (Negative) mg/dL Urine Blood Moderate H (Negative) Urine Nitrite Negative (Negative) Urine Bilirubin Small H (Negative) Urine Urobilinogen Normal (Normal) mg/dL Ur Leukocyte Esterase Trace H (Negative) Urine Microscopic RBC 50-100 H (0-3) per hpf Urine Microscopic WBC 5-15 H (0-3) per hpf Ur Squamous Epith Cells Many H (None-Few) per lpf Urine Bacteria None Seen (None-Few) per hpf Hyaline Casts Few (None-Few) per lpf Salicylates (15.0-30.0) mg/dL Urine Opiates Screen (Osvzos=538) ng/mL Acetaminophen (10-20) mcg/mL Ur Barbiturates Screen (Kprerg=374) ng/mL Ur Phencyclidine Scrn (Cutoff=25) ng/mL Ur Amphetamines Screen (Vnqbhz=7281) ng/mL U Benzodiazepines Scrn (Gdtqpc=024) ng/mL Urine Cocaine Screen (Cutoff= 300) ng/mL U Marijuana (THC) Screen (Cutoff = 50) ng/mL Ur Drug Screen Interp Ethyl Alcohol (Less than 10) mg/dL 07/10/18 Range/Units 10:50 WBC (4.3-11.1) K/mcL RBC (3.82-4.97) M/mcL Hgb (11.5-15.4) g/dL Hct (35.3-44.9) % MCV (83.0-100.0) fL MCH (28.0-33.3) pg MCHC (31.6-35.5) g/dL RDW (11.5-14.5) % Plt Count (140-400) K/mcL MPV (9.4-12.4) fL Immature Gran % (0-4) % Seg Neutrophils % % Lymphocytes % % Monocytes % % Eosinophils % % Basophils % % Neutrophils # (1.6-8.9) K/mcL Lymphocytes # (0.6-4.6) K/mcL Monocytes # (0.0-1.3) K/mcL Eosinophils # (0.0-0.6) K/mcL Basophils # (0.0-0.2) K/mcL Sodium (136-145) mEq/L Potassium (3.5-5.1) mEq/L Chloride (98-107) mEq/L Carbon Dioxide (23-29) mEq/L BUN (6-20) mg/dL Creatinine (0.60-1.20) mg/dL Est GFR ( Amer) (> 60) Est GFR (Non-Af Amer) (> 60) BUN/Creatinine Ratio (6-26) Glucose (70-105) mg/dL Calculated Osmolality (280-300) Lactic Acid (0.5-2.2) mmol/L Calcium (8.6-10.3) mg/dL Total Bilirubin (0.3-1.0) mg/dL Direct Bilirubin (0.0-0.2) mg/dL Indirect Bilirubin (0.0-1.2) mg/dL AST (13-39) Units/L ALT (7-52) Units/L Alkaline Phosphatase (34-104) Units/L Serum Total Protein (6.4-8.9) g/dL Albumin (3.5-5.7) g/dL Globulin (2.4-3.5) g/dL Albumin/Globulin Ratio (1.1-2.2) Serum , Qual (Negative) Urine Color (Yellow) Urine Clarity (Clear) Urine pH (5.0-8.0) pH Units Ur Specific [place] (1.010-1.025) Urine Protein (Neg-Trace) mg/dL Urine Glucose (UA) (Normal) mg/dL Urine Ketones (Negative) mg/dL Urine Blood (Negative) Urine Nitrite (Negative) Urine Bilirubin (Negative) Urine Urobilinogen (Normal) mg/dL Ur Leukocyte Esterase (Negative) Urine Microscopic RBC (0-3) per hpf Urine Microscopic WBC (0-3) per hpf Ur Squamous Epith Cells (None-Few) per lpf Urine Bacteria (None-Few) per hpf Hyaline Casts (None-Few) per lpf Salicylates (15.0-30.0) mg/dL Urine Opiates Screen Negative (Mbbelu=609) ng/mL Acetaminophen (10-20) mcg/mL Ur Barbiturates Screen Negative (Oujfsx=207) ng/mL Ur Phencyclidine Scrn Negative (Cutoff=25) ng/mL Ur Amphetamines Screen Negative (Qazgwq=1777) ng/mL U Benzodiazepines Scrn Negative (Vugkwn=156) ng/mL Urine Cocaine Screen Negative (Cutoff= 300) ng/mL U Marijuana (THC) Screen Positive H (Cutoff = 50) ng/mL Ur Drug Screen Interp See Below Ethyl Alcohol (Less than 10) mg/dL - Radiology Data Radiology results reviewed: Yes I reviewed the patient's radiology results. Chest X-Ray 07/10/18 09:53 IMPRESSION: Multiple cavitary lesions throughout the right lung. Associated wall thickening and right pleural effusion have improved. Findings may reflect improving septic emboli. D/ / 07/10/2018 11:14:36 Stephen Newsome MD / brenda Interpreting Provider: Stephen Newsome MD - EKG Data EKG #1 EKG attestation: Yes I reviewed and interpreted this EKG. EKG results narrative: Normal sinus rhythm at a rate of 71. MI interval is 153. Castration is 89. QT is 46. QTC is 442. No signs of acute ischemia. Patient does have T-wave flattening in lead 2. Also has T-wave inversion in leads 3 and aVF. There is also inversion in lead V4 V5.
--- NOTE | 2018-07-10 09:46 | Emergency Department Note ---
Disposition Clinical Impression: Acute anxiety, Benzodiazepine dependence, Withdrawal complaint, Hypokalemia, Opiate dependence, continuous Depression Qualifiers: Depression Type: reactive depression Qualified Code(s): F32.9 - Major depressive disorder, single episode, unspecified Disposition: Admitted As Inpatient Condition: Good Referrals: Dana Madsen CNP [Primary Care Provider] - Forms: ED Satisfaction Letter General Adult HPI - General Chief complaint: ED Psychiatric Symptoms Stated complaint: withdrawal from heroin & Xanax Time Seen by Provider: 07/10/18 09:11 Source: patient Mode of arrival: ambulatory Limitations: no limitations Nursing Notes Reviewed: Yes Vital Signs Reviewed: Yes - History of Present Illness HPI Narrative: 32yo female with history of CHF, tricuspid endocarditis, hepatitis, osteomyolitis of the sacrum, sepsis, and withdrawl seizures presents with withdrawl from heroin and Xanax. Denies any other drug or alcohol use but does smoke tobacco. Xanax use has been 2 pills daily, admits they are the "purple pills" that she buys off of the street. Pt last used 2 days ago and feels this is a worse withdrawl than usual. Has been using for 8 years and the longest length of sobriety has been 2 months. Last withdrawl was in October when she was admitted for sepsis secondary to endocarditis. Pt is experiencing nausea and vomiting but has been able eat/drink. Also has been experiencing abdominal cramps, diarrhea, chills, runny nose. Denies chest pain, SOB, urinary frequency , dysuria, melena, hematochezia, suicidal or homicidal ideation. Denies sex trafficking at this point but does admit to using sex for drugs 1 month ago. Pt presents today with a friend, wanting inpatient rehab. Pain Scale: 0 - Related Data Home Medications Medication Instructions Recorded Confirmed No Known Home Drugs 06/04/18 07/10/18 Allergies Allergy/AdvReac Type Severity Reaction Status Date / Time No Known Allergies Allergy Verified 07/10/18 13:08 Review of Systems: As Per HPI Constitutional: Reports: fever, chills Eyes: Denies: vision change ENT ED: Denies: throat pain Cardiovascular: Denies: chest pain Respiratory: Denies: dyspnea Gastrointestinal: Reports: abdominal pain, nausea, vomiting, diarrhea. Denies: hematemesis, melena, hematochezia Genitourinary: Denies: urgency, dysuria, frequency, discharge Neurological: Denies: headache Psychiatric: Denies: suicidal thoughts, homicidal thoughts Past Medical History - Past Medical History Medical history: Reports: CHF, hepatitis, other Surgical history: Reports: , hysterectomy Psychiatric history: Reports: no psych history ANNUAL GREENHOUSE MANAGER history: Reports: no ANNUAL GREENHOUSE MANAGER history - Social History Smoking Status: Current every day smoker Smokeless Tobacco Status: No Alcohol use: Reports: none Drug use: Reports: opiates, IV Drug Use Physical Exam midline throat scar secondary to tracheostomy tube in October. Harsh breath sounds on the L, very soft diastolic murmur. No edema. - General Limitations: no limitations General appearance: alert, in no apparent distress - Head Head exam: atraumatic, normocephalic - Eye Eye exam: Present: normal appearance - ENT ENT exam: normal exam - Neck Neck exam: Present: other (scar from tracheostomy tube) - Chest Chest inspection: Present: normal inspection - Respiratory Respiratory exam: Present: other (course bilaterally). Absent: respiratory distress - Cardiovascular Cardiovascular exam: Present: regular rate, normal rhythm, diastolic murmur ( very soft) - Abdominal Exam Abdominal exam: Present: soft, Non-Tender. Absent: tenderness, distention, guarding, rebound, rigidity - Extremities Exam Extremities exam: Present: other (no cellulitis) - Neurological Exam Neurological exam: Present: alert, oriented X3 - Psychiatric Psychiatric exam: Present: normal affect, normal mood. Absent: homicidal ideation, suicidal ideation - Skin Skin exam: Present: warm, dry. Absent: erythema Course Vital Signs Temperature 98.4 F 07/10/18 09:08 Pulse Rate 80 07/10/18 09:08 Respiratory Rate 20 07/10/18 09:08 Blood Pressure 129/84 07/10/18 09:08 O2 Sat by Pulse Oximetry 99 07/10/18 09:08 Temperature 98.4 F 07/10/18 09:20 Pulse Rate 79 07/10/18 13:40 Respiratory Rate 20 07/10/18 13:40 Blood Pressure 127/97 07/10/18 13:40 O2 Sat by Pulse Oximetry 100 07/10/18 13:40 Oxygen Delivery Oxygen Delivery Room Air Medical Decision Making - MDM Narrative Medical decision making narrative: After labs, pt was found to have a decreased hemogobin but is stable with previous visits. CXR demonstrated cavitary lesions in her R lung which were found on previous CXRs and are mostly likely resolving septic emboli. Pt was found to be hypoKalemic and was repleated. Pt has history of sepsis and endocarditis but is afebrile, not tachy, not requiring O2, and had normal lactic acid, so sepsis is not suspected at this time. Due to the risk of benzo withdrawl and heroin use, as well as wanting to get clean, patient will be admitted for detox. - Medical Records Medical records reviewed: Yes I reviewed the patient's medical records. - Lab Data Lab results reviewed: Yes I reviewed the patient's lab results. Result diagrams: 07/10/18 10:38 07/10/18 10:38 Lab Results 07/10/18 07/10/18 07/10/18 Range/Units 10:38 10:38 10:38 WBC 6.5 (4.3-11.1) K/mcL RBC 3.86 (3.82-4.97) M/mcL Hgb 10.6 L (11.5-15.4) g/dL Hct 32.6 L (35.3-44.9) % MCV 84.5 (83.0-100.0) fL MCH 27.5 L (28.0-33.3) pg MCHC 32.5 (31.6-35.5) g/dL RDW 18.1 H (11.5-14.5) % Plt Count 193 (140-400) K/mcL MPV 11.3 (9.4-12.4) fL Immature Gran % 0.3 (0-4) % Seg Neutrophils % 64.3 % Lymphocytes % 29.6 % Monocytes % 4.4 % Eosinophils % 1.1 % Basophils % 0.3 % Neutrophils # 4.2 (1.6-8.9) K/mcL Lymphocytes # 1.9 (0.6-4.6) K/mcL Monocytes # 0.3 (0.0-1.3) K/mcL Eosinophils # 0.1 (0.0-0.6) K/mcL Basophils # 0.0 (0.0-0.2) K/mcL Sodium 140 (136-145) mEq/L Potassium 3.2 L (3.5-5.1) mEq/L Chloride 104 (98-107) mEq/L Carbon Dioxide 27 (23-29) mEq/L BUN 7 (6-20) mg/dL Creatinine 0.51 L (0.60-1.20) mg/dL Est GFR ( Amer) > 60 (> 60) Est GFR (Non-Af Amer) > 60 (> 60) BUN/Creatinine Ratio 14 (6-26) Glucose 83 (70-105) mg/dL Calculated Osmolality 287 (280-300) Lactic Acid (0.5-2.2) mmol/L Calcium 9.0 (8.6-10.3) mg/dL Magnesium 1.6 (1.6-2.6) mg/dL Total Bilirubin (0.3-1.0) mg/dL Direct Bilirubin (0.0-0.2) mg/dL Indirect Bilirubin (0.0-1.2) mg/dL AST (13-39) Units/L ALT (7-52) Units/L Alkaline Phosphatase (34-104) Units/L Serum Total Protein (6.4-8.9) g/dL Albumin (3.5-5.7) g/dL Globulin (2.4-3.5) g/dL Albumin/Globulin Ratio (1.1-2.2) Serum , Qual Negative (Negative) Urine Color (Yellow) Urine Clarity (Clear) Urine pH (5.0-8.0) pH Units Ur Specific [place] (1.010-1.025) Urine Protein (Neg-Trace) mg/dL Urine Glucose (UA) (Normal) mg/dL Urine Ketones (Negative) mg/dL Urine Blood (Negative) Urine Nitrite (Negative) Urine Bilirubin (Negative) Urine Urobilinogen (Normal) mg/dL Ur Leukocyte Esterase (Negative) Urine Microscopic RBC (0-3) per hpf Urine Microscopic WBC (0-3) per hpf Ur Squamous Epith Cells (None-Few) per lpf Urine Bacteria (None-Few) per hpf Hyaline Casts (None-Few) per lpf Salicylates < 2.5 L (15.0-30.0) mg/dL Urine Opiates Screen (Sbqqga=769) ng/mL Acetaminophen < 10 L (10-20) mcg/mL Ur Barbiturates Screen (Qeklot=875) ng/mL Ur Phencyclidine Scrn (Cutoff=25) ng/mL Ur Amphetamines Screen ([place]=8900) ng/mL U Benzodiazepines Scrn (Cvlogg=555) ng/mL Urine Cocaine Screen (Cutoff= 300) ng/mL U Marijuana (THC) Screen (Cutoff = 50) ng/mL Ur Drug Screen Interp Ethyl Alcohol < 10 (Less than 10) mg/dL 07/10/18 07/10/18 07/10/18 Range/Units 10:38 10:38 10:50 WBC (4.3-11.1) K/mcL RBC (3.82-4.97) M/mcL Hgb (11.5-15.4) g/dL Hct (35.3-44.9) % MCV (83.0-100.0) fL MCH (28.0-33.3) pg MCHC (31.6-35.5) g/dL RDW (11.5-14.5) % Plt Count (140-400) K/mcL MPV (9.4-12.4) fL Immature Gran % (0-4) % Seg Neutrophils % % Lymphocytes % % Monocytes % % Eosinophils % % Basophils % % Neutrophils # (1.6-8.9) K/mcL Lymphocytes # (0.6-4.6) K/mcL Monocytes # (0.0-1.3) K/mcL Eosinophils # (0.0-0.6) K/mcL Basophils # (0.0-0.2) K/mcL Sodium (136-145) mEq/L Potassium (3.5-5.1) mEq/L Chloride (98-107) mEq/L Carbon Dioxide (23-29) mEq/L BUN (6-20) mg/dL Creatinine (0.60-1.20) mg/dL Est GFR ( Amer) (> 60) Est GFR (Non-Af Amer) (> 60) BUN/Creatinine Ratio (6-26) Glucose (70-105) mg/dL Calculated Osmolality (280-300) Lactic Acid 2.1 (0.5-2.2) mmol/L Calcium (8.6-10.3) mg/dL Magnesium (1.6-2.6) mg/dL Total Bilirubin 0.5 (0.3-1.0) mg/dL Direct Bilirubin 0.1 (0.0-0.2) mg/dL Indirect Bilirubin 0.4 (0.0-1.2) mg/dL AST 17 (13-39) Units/L ALT 13 (7-52) Units/L Alkaline Phosphatase 119 H (34-104) Units/L Serum Total Protein 7.3 (6.4-8.9) g/dL Albumin 3.4 L (3.5-5.7) g/dL Globulin 3.9 H (2.4-3.5) g/dL Albumin/Globulin Ratio 0.9 L (1.1-2.2) Serum , Qual (Negative) Urine Color Yellow (Yellow) Urine Clarity Clear (Clear) Urine pH 6.0 (5.0-8.0) pH Units Ur Specific [place] 1.030 H (1.010-1.025) Urine Protein 30 H (Neg-Trace) mg/dL Urine Glucose (UA) Normal (Normal) mg/dL Urine Ketones Negative (Negative) mg/dL Urine Blood Moderate H (Negative) Urine Nitrite Negative (Negative) Urine Bilirubin Small H (Negative) Urine Urobilinogen Normal (Normal) mg/dL Ur Leukocyte Esterase Trace H (Negative) Urine Microscopic RBC 50-100 H (0-3) per hpf Urine Microscopic WBC 5-15 H (0-3) per hpf Ur Squamous Epith Cells Many H (None-Few) per lpf Urine Bacteria None Seen (None-Few) per hpf Hyaline Casts Few (None-Few) per lpf Salicylates (15.0-30.0) mg/dL Urine Opiates Screen (Odwvzo=578) ng/mL Acetaminophen (10-20) mcg/mL Ur Barbiturates Screen (Vbbelw=842) ng/mL Ur Phencyclidine Scrn (Cutoff=25) ng/mL Ur Amphetamines Screen (Arwyih=3468) ng/mL U Benzodiazepines Scrn (Pqgynr=153) ng/mL Urine Cocaine Screen (Cutoff= 300) ng/mL U Marijuana (THC) Screen (Cutoff = 50) ng/mL Ur Drug Screen Interp Ethyl Alcohol (Less than 10) mg/dL 07/10/18 Range/Units 10:50 WBC (4.3-11.1) K/mcL RBC (3.82-4.97) M/mcL Hgb (11.5-15.4) g/dL Hct (35.3-44.9) % MCV (83.0-100.0) fL MCH (28.0-33.3) pg MCHC (31.6-35.5) g/dL RDW (11.5-14.5) % Plt Count (140-400) K/mcL MPV (9.4-12.4) fL Immature Gran % (0-4) % Seg Neutrophils % % Lymphocytes % % Monocytes % % Eosinophils % % Basophils % % Neutrophils # (1.6-8.9) K/mcL Lymphocytes # (0.6-4.6) K/mcL Monocytes # (0.0-1.3) K/mcL Eosinophils # (0.0-0.6) K/mcL Basophils # (0.0-0.2) K/mcL Sodium (136-145) mEq/L Potassium (3.5-5.1) mEq/L Chloride (98-107) mEq/L Carbon Dioxide (23-29) mEq/L BUN (6-20) mg/dL Creatinine (0.60-1.20) mg/dL Est GFR ( Amer) (> 60) Est GFR (Non-Af Amer) (> 60) BUN/Creatinine Ratio (6-26) Glucose (70-105) mg/dL Calculated Osmolality (280-300) Lactic Acid (0.5-2.2) mmol/L Calcium (8.6-10.3) mg/dL Magnesium (1.6-2.6) mg/dL Total Bilirubin (0.3-1.0) mg/dL Direct Bilirubin (0.0-0.2) mg/dL Indirect Bilirubin (0.0-1.2) mg/dL AST (13-39) Units/L ALT (7-52) Units/L Alkaline Phosphatase (34-104) Units/L Serum Total Protein (6.4-8.9) g/dL Albumin (3.5-5.7) g/dL Globulin (2.4-3.5) g/dL Albumin/Globulin Ratio (1.1-2.2) Serum , Qual (Negative) Urine Color (Yellow) Urine Clarity (Clear) Urine pH (5.0-8.0) pH Units Ur Specific [place] (1.010-1.025) Urine Protein (Neg-Trace) mg/dL Urine Glucose (UA) (Normal) mg/dL Urine Ketones (Negative) mg/dL Urine Blood (Negative) Urine Nitrite (Negative) Urine Bilirubin (Negative) Urine Urobilinogen (Normal) mg/dL Ur Leukocyte Esterase (Negative) Urine Microscopic RBC (0-3) per hpf Urine Microscopic WBC (0-3) per hpf Ur Squamous Epith Cells (None-Few) per lpf Urine Bacteria (None-Few) per hpf Hyaline Casts (None-Few) per lpf Salicylates (15.0-30.0) mg/dL Urine Opiates Screen Negative (Xkhqjo=955) ng/mL Acetaminophen (10-20) mcg/mL Ur Barbiturates Screen Negative (Mxfmvr=562) ng/mL Ur Phencyclidine Scrn Negative (Cutoff=25) ng/mL Ur Amphetamines Screen Negative (Tgytmm=8897) ng/mL U Benzodiazepines Scrn Negative (Ufuzjk=008) ng/mL Urine Cocaine Screen Negative (Cutoff= 300) ng/mL U Marijuana (THC) Screen Positive H (Cutoff = 50) ng/mL Ur Drug Screen Interp See Below Ethyl Alcohol (Less than 10) mg/dL - Radiology Data Radiology results reviewed: Yes I reviewed the patient's radiology results.
[2018-07-10] MEDS ORDERED: 0.9 % Sodium Chloride 1,000 ML IVC ONE (10:09)
--- NOTE | 2018-07-10 10:27 | Emergency Department Note ---
Disposition Clinical Impression: Acute anxiety, Opiate dependence, continuous, Benzodiazepine dependence, Withdrawal complaint Depression Qualifiers: Depression Type: reactive depression Qualified Code(s): F32.9 - Major depressive disorder, single episode, unspecified Disposition: Still a Patient Referrals: Dana Madsen CNP [Primary Care Provider] - Forms: ED Satisfaction Letter General Adult HPI - General Chief complaint: ED Psychiatric Symptoms Stated complaint: withdrawal from heroin & Xanax Time Seen by Provider: 07/10/18 09:11 Source: patient Mode of arrival: ambulatory Limitations: no limitations - History of Present Illness Pain Scale: 0 - Related Data Home Medications Medication Instructions Recorded Confirmed No Known Home Drugs 06/04/18 06/10/18 Allergies Allergy/AdvReac Type Severity Reaction Status Date / Time No Known Allergies Allergy Verified 07/10/18 09:08 Constitutional: Reports: fever, chills Eyes: Denies: vision change ENT ED: Denies: throat pain Cardiovascular: Denies: chest pain Respiratory: Denies: dyspnea Gastrointestinal: Reports: abdominal pain, nausea, vomiting, diarrhea. Denies: hematemesis, melena, hematochezia Genitourinary: Denies: urgency, dysuria, frequency, discharge Neurological: Denies: headache Psychiatric: Denies: suicidal thoughts, homicidal thoughts Past Medical History - Past Medical History Medical history: Reports: CHF, hepatitis, other Surgical history: Reports: , hysterectomy Psychiatric history: Reports: no psych history CUSTOM BOW MAKER history: Reports: no CUSTOM BOW MAKER history - Social History Smoking Status: Current every day smoker Smokeless Tobacco Status: No Alcohol use: Reports: none Drug use: Reports: opiates, IV Drug Use Physical Exam - General Limitations: no limitations General appearance: alert, in no apparent distress Course - Reevaluation(s) Reevaluation #1: Attestation note: Patient was seen with the emergency medicine resident/nurse practitioner/ physician employee relations assistant/transitional resident/medical student: Dr. Leanne Steen I have personally performed a face to face evaluation on this patient. I have reviewed and agree with history and physical examination patient management and disposition. Briefly the salient points of the case are as follows: 32-year-old female history of heroin and Xanax use. Both 2 days ago because she wants to detox from it history of recent bacterial endocarditis of her tricuspid valve treated for several weeks at the [facility] with the trach IV antibiotics. Patient states she has been skin popping in her left arm. No fevers or chills but she says she just feels really bad "just like when I had my sepsis". Patient is afebrile with stable vital signs she is emaciated she does have a mild diastolic murmur. Neurologically nonfocal. Patient will get labs and imaging she will get empiric antibiotics and admission. Patient is comfortable with this plan. Admission disposition pending, providing 45 minutes of critical care service for this patient. Of note patient stated that the [facility] wanted to do a valvuloplasty however they stated that she has to have her teeth removed first and patient states that there are no plans or she is not making arrangements for any of this yet. Time: 10:25 Vital Signs Temperature 98.4 F 07/10/18 09:08 Pulse Rate 80 07/10/18 09:08 Respiratory Rate 20 07/10/18 09:08 Blood Pressure 129/84 07/10/18 09:08 O2 Sat by Pulse Oximetry 99 07/10/18 09:08 Temperature 98.4 F 07/10/18 09:20 Pulse Rate 80 07/10/18 09:31 Respiratory Rate 20 07/10/18 09:31 Blood Pressure 117/71 07/10/18 09:31 O2 Sat by Pulse Oximetry 100 07/10/18 09:31 Oxygen Delivery Oxygen Delivery Room Air
[2018-07-10 11:07] LABS: Basophils % 0.3 %; Eosinophils # 0.1 K/mcL (0.0-0.6); Eosinophils % 1.1 %; Hematocrit 32.6 % (35.3-44.9); Hemoglobin 10.6 g/dL (11.5-15.4); Immature Granulocytes % 0.3 % (0-4); Lymphocytes # 1.9 K/mcL (0.6-4.6); Lymphocytes % 29.6 %; Mean Corpuscular HGB Conc 32.5 g/dL (31.6-35.5); Mean Corpuscular Hemoglobin 27.5 pg (28.0-33.3); Mean Corpuscular Volume 84.5 fL (83.0-100.0); Mean Platelet Volume 11.3 fL (9.4-12.4); Monocytes # 0.3 K/mcL (0.0-1.3); Monocytes % 4.4 %; Neutrophils # 4.2 K/mcL (1.6-8.9); Platelet Count 193 K/mcL (140-400); Red Blood Count 3.86 M/mcL (3.82-4.97); Red Cell Distribution Width 18.1 % (11.5-14.5); Segmented Neutrophils % 64.3 %
[2018-07-10 11:26] LABS: Albumin 3.4 g/dL (3.5-5.7); Albumin/Globulin Ratio 0.9 (1.1-2.2); Bilirubin,Direct 0.1 mg/dL (0.0-0.2); Bilirubin,Indirect 0.4 mg/dL (0.0-1.2); Bilirubin,Total 0.5 mg/dL (0.3-1.0); Globulin 3.9 g/dL (2.4-3.5); Total Protein 7.3 g/dL (6.4-8.9)
[2018-07-10 11:27] LABS: Acetaminophen < 10 mcg/mL (10-20); BUN/Creatinine Ratio 14 (6-26); Blood Urea Nitrogen 7 mg/dL (6-20); Carbon Dioxide 27 mEq/L (23-29); Chloride 104 mEq/L (98-107); Ethanol < 10 mg/dL (Less than 10); Glucose 83 mg/dL (70-105); Osmolality,Calculated 287 (280-300); Potassium 3.2 mEq/L (3.5-5.1); Salicylate < 2.5 mg/dL (15.0-30.0); Sodium 140 mEq/L (136-145); eGFR For Non-African Americans > 60 (> 60)
[2018-07-10 11:32] LABS: Bilirubin,Urine Small (Negative); Blood,Urine Moderate (Negative); Color,Urine Yellow (Yellow); Glucose,Urine (UA) Normal (Normal); Ketones,Urine Negative (Negative); Leukocyte Esterase,Urine Trace (Negative); Nitrite,Urine Negative (Negative); Protein,Urine 30 mg/dL (Neg-Trace); Urobilinogen,Urine Normal (Normal)
[2018-07-10 11:33] LABS: Clarity,Urine Clear (Clear)
[2018-07-10 11:34] LABS: Bacteria,Urine None Seen per hpf (None-Few); Hyaline Casts,Urine Few per lpf (None-Few); RBC,Urine 50-100 per hpf (0-3); Squamous Epithelial Cell,Urine Many per lpf (None-Few)
[2018-07-10 11:49] LABS: Amphetamine Screen,Urine Negative ng/mL (Cutoff=1000); Barbiturate Screen,Urine Negative ng/mL (Cutoff=200); Benzodiazepines Screen,Urine Negative ng/mL (Cutoff=200); Cannabinoid Screen,Urine Positive ng/mL (Cutoff = 50); Cocaine Screen,Urine Negative ng/mL (Cutoff= 300); Opiate Screen,Urine Negative ng/mL (Cutoff=300); Phencyclidine Screen,Urine Negative ng/mL (Cutoff=25)
[2018-07-10] MEDS ORDERED: Nicotine 14 MG PATCH.TD24 TD SCH (12:30)
[2018-07-10] MEDS ORDERED: Potassium Chloride Elixir 20 MEQ/15 ML UDC PO ONE (12:50)
[2018-07-10 13:38] LABS: Magnesium 1.6 mg/dL (1.6-2.6)
[2018-07-10] MEDS ORDERED: *HR* Promethazine 25 MG/ML VIAL IVP PRN (15:17)
[2018-07-10] MEDS ORDERED: *HR* LORazepam 2 MG/ML VIAL IVP PRN ×5 (15:17→19:56)
[2018-07-10] MEDS ORDERED: cloNIDine HCl 0.1 MG TABLET PO PRN (17:12)
[2018-07-10] MEDS ORDERED: 0.9 % Sodium Chloride 1,000 ML IVC SCH (17:15)
[2018-07-10] MEDS ORDERED: Acetaminophen 325 MG TABLET PO PRN (17:16)
[2018-07-10] MEDS ORDERED: Naloxone 0.4 MG/ML INJ IVP PRN (17:18)
--- NOTE | 2018-07-10 17:23 | Internal Med History&Physical ---
<BrandieDanielle - Last Filed: 07/10/18 17:20> Date of Encounter: 07/10/18 Time of Encounter: 17:00 Internal Medicine - H&P: HPI Chief complaint: Drug withdrawl Admitted From: Home Plans for Post Hospital Care: Home History of present illness: Ms. Guthrie is a 32 year old female with past medical history of IV drug abuse, infective endocarditis, sepsis, tobacco abuse, bacteremia, sacral decubitus ulcer, vertebral, sacral, sacrococcygeal osteomyelitis, hepatitis C, CHF, chronic pulmonary embolism, cavitary lesions of the lungs, hepatitis A, vegetation of heart valve anxiety and depression, opioid and benzodiazepine dependence. Patient presents to the emergency department with complaint of with drawing from heroin and Xanax. She denies any other drug or alcohol use but does smoke cigarettes daily. Patient admits to using Xanax, to "purple pills" daily that are not prescribed to her. Patient also states that she has been skin popping heroin. Last use was 2 days ago. She reports subjective stomach cramps, feeling restless, feeling hot, then cold. In the emergency department patient was complaining of nausea and vomiting, as well as diarrhea, chills, rhinorrhea. She denies any headaches, blurred vision, chest pain, shortness of breath. She does report that she has been treating sex for drugs within the last month. She has requested inpatient admission for withdrawal and is requesting to go to inpatient rehabilitation. Past Med Surg Social Fam HX - Past Medical History Medical history: CHF, hepatitis, other Additional medical history: endocarditis, osteomylitis, trach Psychiatric history: no psych history - Past Surgical History Surgical History: , hysterectomy Additional surgical history: , tracheostomy - Social History Smoking Status: Current every day smoker Packs per day: 1.5 Smokeless Tobacco Status: No Alcohol use: none Drug use: opiates, IV Drug Use - Family History Father Hx Family Endocrine Disorder: Yes (DM) Internal Medicine - H&P: Meds No Known Home Drugs 06/04/18 [History] 3 Allergy/AdvReac Type Severity Reaction Status Date / Time No Known Allergies Allergy Verified 07/10/18 13:08 All Systems PM: A 10-system review of systems was performed and is negative for pertinent findings except as documented above in the HPI. - Constitutional Constitutional: chills, fever(s), no falls Additional comments: Patient reports feeling hot and cold. - EENT Eyes: no blurry vision, no photophobia, no other visual disturbances Nose, mouth and throat: nasal congestion, nasal discharge, no dysphagia, no epistaxis, no hoarseness, no sinus pain, no sore throat - Cardiovascular Cardiovascular ROS IM: no diaphoresis, no edema, no lightheadedness, no palpitations - Respiratory Respiratory: no dyspnea, no pain on inspiration - Gastrointestinal Gastrointestinal: diarrhea, nausea, vomiting, no constipation, no dysphagia, no heartburn - Musculoskeletal Musculoskeletal ROS IM: no back pain, no numbness, no tingling - Integumentary Integumentary IM: no new lesions, no non-healing lesions, no rash - Neurological Neurological ROS: no convulsions, no dizziness, no headache(s), no loss of vision, no numbness, no tingling, no weakness - Psychiatric Psychiatric: anxiety, no depression - Constitutional Vitals: Temp Pulse Resp BP Pulse Ox 98.1 F 84 17 126/83 100 07/10/18 14:51 07/10/18 14:51 07/10/18 14:51 07/10/18 14:51 07/10/18 14:51 General appearance: Present: cooperative, pleasant, no acute distress, answers questions appropriately - Head Head exam: Present: atraumatic, normal inspection, normocephalic - Eye Eye exam: Present: normal appearance, conjuntiva pink, sclera anicteric Pupils: Present: PERRL - Neck Neck exam general surgery: Present: supple, trachea midline. Absent: lymphadenopathy, normal inspection, tenderness - Respiratory Respiratory exam: Present: CTAB. Absent: accessory muscle use, decreased breath sounds, rales, rhonchi, wheezes - Cardiovascular Cardiovascular exam: Present: RRR, +S1, +S2. Absent: diastolic murmur, gallop, rubs, systolic murmur - GI/Abdominal GI/Abdominal exam: Present: normal bowel sounds, soft. Absent: distended, hepatomegaly, tenderness - Extremities Exam Extremities exam: Present: normal capillary refill, normal inspection, warm, radial pulses palpable and symmetrical. Absent: calf tenderness, cyanotic, pedal edema, tenderness - Neurological Exam Neurological exam: Present: alert, oriented X3, no focal deficits. Absent: motor sensory deficit, facial droop, speech deficit - Skin Skin exam: Present: dry, intact, normal color, warm. Absent: rash Internal Med - H&P Results - Labs CBC & Chem 7: 07/10/18 10:38 07/10/18 10:38 - Assessment and plan (1) Withdrawal complaint Current Visit: Yes Status: Acute Assessment and plan: Pt reports abdominal cramping, nausea, vomiting, diarrhea, feeling restless, feeling hot and cold. Last heroin and benzodiazepine use 2 days ago. Pt assessment is unremarkable other than pt moving around on bed. Pt is not diaphoretic, she appears to be resting quietly when I entered the room. Vital signs are stable. Bedside monitor shows NSR with occasional PVCs, rate in the 80s. Suspect that greatest portion of withdrawl may be over. Will treat symptomatically. Pt was given Librium by the ED, she reported that it wasn't working and requested "the Ativan scale." Telemetry Symptomatic treatment including Tylenol ofr pain, Clonidine for HTN, Nicoderm patch, Zofran for nasuea, Bentyl for abdominal pain and diarrhea, IVF hydration. Seizure precautions Vitals q4h SocIal service and psychaitric consultations (2) Benzodiazepine dependence Current Visit: Yes Status: Acute Assessment and plan: Pt reports that she has been taking two "purple pills" daily that she buys on the street, they are not prescribed to her. She admits that she has been taking them "for years". Last admitted use was 2 days ago. (3) IV drug abuse Current Visit: Yes Status: Acute Assessment and plan: Per history. Denies recent IV drug use. (4) Depression Current Visit: Yes Status: Chronic Assessment and plan: Chronic. No home medications. Qualifiers: Depression Type: unspecified Qualified Code(s): F32.9 - Major depressive disorder, single episode, unspecified (5) Hypokalemia Current Visit: Yes Status: Acute Assessment and plan: Acute. Continue to monitor. Pt received po supplementation in ED. (6) Opiate dependence, continuous Current Visit: Yes Status: Acute Assessment and plan: Pt admits to using heroin. Prior IV use, now admits to skin popping. Monitor for withdrawl symptoms. Last use 2 days ago. (7) Cavitary lesion of lung Current Visit: Yes Status: Chronic Assessment and plan: Per history. Chronic. Chest X-Ray 07/10/18 09:53 IMPRESSION: Multiple cavitary lesions throughout the right lung. Associated wall thickening and right pleural effusion have improved. Findings may reflect improving septic emboli. D/ / 07/10/2018 11:14:36 Stephen Newsome MD / brenda Interpreting Provider: Stephen Newsome MD (8) DVT prophylaxis Current Visit: Yes Status: Acute Assessment and plan: Heparin SQ BID, activity order for pt up to chair BID. (9) Hepatitis A Current Visit: Yes Status: Chronic Assessment and plan: Per history Qualifiers: Hepatic coma status: without hepatic coma Qualified Code(s): B15.9 - Hepatitis A without hepatic coma (10) Hepatitis C Current Visit: Yes Status: Chronic Assessment and plan: Per pt history Qualifiers: Viral hepatitis chronicity: unspecified Hepatic coma status: without hepatic coma Qualified Code(s): B19.20 - Unspecified viral hepatitis C without hepatic coma (11) History of endocarditis Current Visit: Yes Status: Acute Assessment and plan: For recurrent infective endocarditis, last admitted for this in May,. Recurrent due to inadequate treatment and noncompliance. Patient has vegetation of the septal leaflet of tricuspid valve with tricuspid regurgitation with shortness of breath and pedal edema, as well as worsening diastolic dysfunction. Patient is to have valvuloplasty at [facility], however it is required for her to have all of her tooth removed before the surgery would be done. She has no plan to have the dental work done at this time. Currently pt denies chest pain, SOB. Continue telemetry (12) Tobacco abuse Current Visit: Yes Status: Acute Assessment and plan: Pt is a daily smoker. Nicotine patch ordered. (13) Heroin abuse Current Visit: Yes Status: Chronic Assessment and plan: Pt pt history. Prior IV use with infective endocarditits and valvular damage, now is injecting SQ. Last use 2 days ago. Psychiatry and manager social work consults in an pending. (14) Cachexia Current Visit: Yes Status: Chronic Assessment and plan: BMI 16.7. Pt is frail and malnourished appearing. Likely secondary to chronic health issues and chronic illegal drug use. Nutrition consultation in for supplementation. - Time Spent With Patient Total time spent is greater than 50% in coordination of care (as documented) at patient's floor/unit and/or counseling patient: less than 15 minutes <Chris Dyson - Last Filed: 07/10/18 19:00> Date of Encounter: 07/10/18 Internal Medicine - H&P: HPI History of present illness: Ms. Guthrie is a 32 year old female All Systems PM: A 10-system review of systems was performed and is negative for pertinent findings except as documented above in the HPI. - Constitutional Vitals: Temp Pulse Resp BP Pulse Ox 98.1 F 84 17 126/83 100 07/10/18 14:51 07/10/18 14:51 07/10/18 14:51 07/10/18 14:51 07/10/18 14:51 Internal Med - H&P Results - Labs CBC & Chem 7: 07/10/18 10:38 07/10/18 10:38 - Attending Attestation I have seen and examined this patient independently. I have discussed with APARTMENT HOUSE MANAGER Ms Diego regarding the management plan. Agree with the documentation. - Assessment and plan (1) Heroin abuse Current Visit: Yes Status: Chronic (2) DVT prophylaxis Current Visit: Yes Status: Acute (3) Tobacco abuse Current Visit: Yes Status: Acute (4) Hypokalemia Current Visit: Yes Status: Acute (5) Hepatitis C Current Visit: Yes Status: Chronic Qualifiers: Viral hepatitis chronicity: unspecified Hepatic coma status: without hepatic coma Qualified Code(s): B19.20 - Unspecified viral hepatitis C without hepatic coma (6) IV drug abuse Current Visit: Yes Status: Acute (7) History of endocarditis Current Visit: Yes Status: Acute (8) Cavitary lesion of lung Current Visit: Yes Status: Chronic (9) Hepatitis A Current Visit: Yes Status: Chronic Qualifiers: Hepatic coma status: without hepatic coma Qualified Code(s): B15.9 - Hepatitis A without hepatic coma (10) Depression Current Visit: Yes Status: Chronic Qualifiers: Depression Type: unspecified Qualified Code(s): F32.9 - Major depressive disorder, single episode, unspecified (11) Opiate dependence, continuous Current Visit: Yes Status: Acute (12) Benzodiazepine dependence Current Visit: Yes Status: Acute (13) Withdrawal complaint Current Visit: Yes Status: Acute (14) Cachexia Current Visit: Yes Status: Chronic - Time Spent With Patient Total time spent is greater than 50% in coordination of care (as documented) at patient's floor/unit and/or counseling patient:
[2018-07-10] MEDS: Ondansetron 4 MG/2 ML VIAL IVP SCH ×2 (18:04→23:52)
[2018-07-10] MEDS: *HR* Heparin 5,000 UNIT/ML VIAL SQ SCH (18:04)
[2018-07-10] MEDS: *HR* LORazepam 2 MG/ML VIAL IVP PRN ×2 (20:36→23:52)
[2018-07-11] MEDS: *HR* Heparin 5,000 UNIT/ML VIAL SQ SCH (05:51)
[2018-07-11] MEDS: Ondansetron 4 MG/2 ML VIAL IVP SCH (06:05)
[2018-07-11 08:12] VITALS: BP 138/87
--- NOTE | 2018-07-11 09:32 | Electrocardiograph Report ---
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
--- NOTE | 2018-07-11 11:26 | Discharge Summary ---
Orders not resulted at time of discharge: Pending orders 07/11/18 04:00 Basic Metabolic Panel AM 0400 Complete Blood Count [HEME] AM 0400 Date of Encounter: 07/11/18 Time of Encounter: 08:45 - Discharge Diagnosis (1) Withdrawal complaint Priority: Primary Status: Acute Assessment and Plan: Last heroin and benzodiazepine use 2 days ago, reported per pt. Urine drug screen negative for everything but marijuana. Pt resting quietly in room with head covered by blanket. Pt had been refusing labs and vitals per nurse. I discussed with pt that her drug screen was negative and that I did not believe that she was withdrawing at all and that the ativan would be stopped. Pt was told that she could not just lie here and get ativan all day, pt states that she will leave. Telemetry Symptomatic treatment including Tylenol ofr pain, Clonidine for HTN, Nicoderm patch, Zofran for nasuea, Bentyl for abdominal pain and diarrhea, IVF hydration. Seizure precautions Vitals q4h SocIal service and psychaitric consultations (2) Benzodiazepine dependence Priority: Secondary Status: Chronic Assessment and Plan: Drug screen that was collected in the ED was negative for benzodiazepines. Pt reports daily use. Last admitted use was 2 days ago. (3) IV drug abuse Priority: Secondary Status: Chronic Assessment and Plan: Per history. Denies recent IV drug use. (4) Depression Priority: Secondary Status: Chronic Assessment and Plan: Chronic. No home medications. Pt was to see psychiatry but signed out AMA prior to seeing them. Qualifiers: Depression Type: unspecified Qualified Code(s): F32.9 - Major depressive disorder, single episode, unspecified (5) Hypokalemia Priority: Secondary Status: Acute Assessment and Plan: Pt was given po supplementation, she refused labs today, unable to recheck. (6) Opiate dependence, continuous Priority: Secondary Status: Chronic Assessment and Plan: Pt admits to using heroin. Prior IV use, now admits to skin popping. Urine drug screen in the ED negative. Last reported use 2 days ago. Pt exhibited no withdrawl symptoms. (7) Cavitary lesion of lung Priority: Secondary Status: Chronic Assessment and Plan: Per history. Chronic. Chest X-Ray 07/10/18 09:53 IMPRESSION: Multiple cavitary lesions throughout the right lung. Associated wall thickening and right pleural effusion have improved. Findings may reflect improving septic emboli. D/ / 07/10/2018 11:14:36 Stephen Newsome MD / brenda Interpreting Provider: Stephen Newsome MD (8) DVT prophylaxis Priority: Secondary Status: Acute Assessment and Plan: Heparin SQ BID (9) Hepatitis A Priority: Secondary Status: Chronic Assessment and Plan: Per history Qualifiers: Hepatic coma status: without hepatic coma Qualified Code(s): B15.9 - Hepatitis A without hepatic coma (10) Hepatitis C Priority: Secondary Status: Chronic Assessment and Plan: Per pt history Qualifiers: Viral hepatitis chronicity: unspecified Hepatic coma status: without hepatic coma Qualified Code(s): B19.20 - Unspecified viral hepatitis C without hepatic coma (11) History of endocarditis Priority: Secondary Status: Chronic Assessment and Plan: History of recurrent infective endocarditis due to IVDU and noncompliance with treatment, last admitted for this in May,. Patient has vegetation of the septal leaflet of tricuspid valve with tricuspid regurgitation with shortness of breath and pedal edema, as well as worsening diastolic dysfunction. Patient is to have valvuloplasty at [facility], however it is required for her to have all of her tooth removed before the surgery would be done. She has no plan to have the dental work done at this time. (12) Tobacco abuse Priority: Secondary Status: Chronic Assessment and Plan: Pt is a daily smoker. (13) Heroin abuse Priority: Secondary Status: Chronic Assessment and Plan: Pt pt history. Prior IV use with infective endocarditits and valvular damage, now is injecting SQ. Last reported use 2 days ago. Psychiatry and social science instructor consults in an pending. Pt signed out AMA prior to seeing psychiatry, she was given rehabilitaton resources by nursing services manager. (14) Cachexia Priority: Secondary Status: Chronic Assessment and Plan: BMI 17.8. Pt is frail and malnourished appearing. Likely secondary to chronic health issues and chronic illegal drug use. Nutrition consultation in for supplementation. Pt signed out AMA prior to being evaluated. Hospital course: Pt signed out AMA - Time Spent with Patient Total time spent providing and/or coordinating discharge services: Less than 30 minutes - Discharge Medications Home Medications: No Known Home Drugs 06/04/18 [History] Allergies/Adverse Reactions: 3 Allergy/AdvReac Type Severity Reaction Status Date / Time No Known Allergies Allergy Verified 07/10/18 13:08 Date of admission: 07/10/18 14:06 Primary care physician: Dana Madsen Consults: 07/10/18 15:17 Consult to Tapper Helper [CONS] Routine Reason for SW Consult: Hx of multiple drug abuse 07/10/18 17:31 Consult to Psychiatry [CONS] Routine Consulting Provider: Psychiatry Krysten Reason consult: Other Other reason and/or additional details: withdrawl, pt requesting to talk to someone about inpatient rehabilitation. [place]ag[place] Slip initiated date and time: NO pink slip Call Completed: No 07/10/18 18:02 Consult to Nutrition [CONS] Routine Comment: Consulting Provider: NUTRITION Reason for Dietary Consult: PO Supplementation 07/10/18 19:56 Consult to Tapper Helper [CONS] Routine Reason for SW Consult: pt wants rehab Discharging clinician: Danielle Diego Anticipated date of discharge: 07/12/18 - Constitutional Vitals: Temp Pulse Resp BP Pulse Ox 98.4 F 77 16 138/87 100 07/11/18 08:07 07/11/18 08:07 07/11/18 08:07 07/11/18 08:07 07/11/18 08:07 General appearance: Present: cooperative, pleasant, no acute distress, answers questions appropriately - Head Head exam: Present: atraumatic, normal inspection, normocephalic - Eye Eye exam: Present: normal appearance, conjuntiva pink, sclera anicteric - Neck Neck exam general surgery: Present: supple, trachea midline. Absent: lymphadenopathy - Respiratory Respiratory exam: Present: CTAB. Absent: accessory muscle use, rales, rhonchi, wheezes - Cardiovascular Cardiovascular exam: Present: RRR, +S1, +S2. Absent: diastolic murmur, gallop, rubs, systolic murmur - GI/Abdominal GI/Abdominal exam: Present: distended, normal bowel sounds, soft, no peritoneal signs. Absent: tenderness - Extremities Exam Extremities exam: Present: warm, radial pulses palpable and symmetrical. Absent : calf tenderness, cyanotic, pedal edema - Neurological Exam Neurological exam: Present: alert, oriented X3, no focal deficits. Absent: facial droop, speech deficit - Skin Skin exam: Present: dry, intact, normal color, warm. Absent: rash - Patient Status Disposition: Left Against Medical Advice Condition: Good - Discharge Instructions Follow Up With: Dana Madsen CNP [Primary Care Provider] -
== END 2018-07-11 09:44 | disposition left against medical advice (07) ==
LOC: EMEROOARM 09:05 → 3BNU 09:05
PROVIDERS: ADMIT Internal Medicine; ATTEND Internal Medicine

== ENCOUNTER 2019-09-30 01:02 | Observation (INO) ==
[2019-09-30] MEDS ORDERED: Isovue-370 500 ML BOTTLE IVP ONE ×2 (01:29→05:58)
[2019-09-30] MEDS ORDERED: Cefepime HCl 2,000 MG in 0.9 % Sodium Chloride Mini Bag 100 ML IVPB STA (01:31)
[2019-09-30 01:53] LABS: Bilirubin,Urine Negative (Negative); Blood,Urine Negative (Negative); Clarity,Urine Cloudy (Clear); Color,Urine Yellow (Yellow); Glucose,Urine (UA) Normal (Normal); Ketones,Urine Negative (Negative); Leukocyte Esterase,Urine Moderate (Negative); Nitrite,Urine Negative (Negative); Protein,Urine Trace mg/dL (Neg-Trace); Specific Gravity,Urine 1.017 (1.010-1.025); Urobilinogen,Urine Normal (Normal)
[2019-09-30 01:54] LABS: Bacteria,Urine Many per hpf (None-Few); Hyaline Casts,Urine Few per lpf (None-Few); RBC,Urine 0-3 per hpf (0-3); Squamous Epithelial Cell,Urine Many per lpf (None-Few); WBC,Urine 50-100 per hpf (0-3)
[2019-09-30 02:24] LABS: Basophils % 0.4 %; Eosinophils # 0.2 K/mcL (0.0-0.6); Eosinophils % 2.9 %; Hematocrit 40.5 % (35.3-44.9); Hemoglobin 12.7 g/dL (11.5-15.4); Immature Granulocytes % 0.4 % (0-4); Lymphocytes # 2.6 K/mcL (0.6-4.6); Lymphocytes % 33.5 %; Mean Corpuscular HGB Conc 31.4 g/dL (31.6-35.5); Mean Platelet Volume 9.9 fL (9.4-12.4); Monocytes # 0.5 K/mcL (0.0-1.3); Monocytes % 6.6 %; Neutrophils # 4.3 K/mcL (1.6-8.9); Platelet Count 250 K/mcL (140-400); Red Blood Count 4.88 M/mcL (3.82-4.97); Red Cell Distribution Width 15.7 % (11.5-14.5); Segmented Neutrophils % 56.2 %; White Blood Count 7.7 K/mcL (4.3-11.1)
[2019-09-30 02:27] LABS: INR 1.1
[2019-09-30 02:29] LABS: Activated Partial Thrombo Time 32.8 Seconds (26.0-36.0)
[2019-09-30 02:45] LABS: Alanine Aminotransferase 8 Units/L (7-52); Albumin 3.7 g/dL (3.5-5.7); Albumin/Globulin Ratio 0.9 (1.1-2.2); Alkaline Phosphatase 103 Units/L (34-104); Aspartate Amino Transferase 13 Units/L (13-39); BUN/Creatinine Ratio 13 (6-26); Bilirubin,Indirect 0.2 mg/dL (0.0-1.0); Bilirubin,Total 0.2 mg/dL (0.3-1.0); Blood Urea Nitrogen 9 mg/dL (6-20); Calcium 9.3 mg/dL (8.6-10.3); Carbon Dioxide 31 mEq/L (23-29); Chloride 101 mEq/L (98-107); Globulin 4.3 g/dL (2.4-3.5); Glucose 70 mg/dL (70-105); Magnesium 1.8 mg/dL (1.6-2.6); Osmolality,Calculated 285 (280-300); Phosphorous 4.2 mg/dL (2.7-4.5); Potassium 3.6 mEq/L (3.5-5.1); Sodium 139 mEq/L (136-145); Troponin I < 0.03 ng/mL (< 0.04); eGFR For African Americans > 60 (> 60); eGFR For Non-African Americans > 60 (> 60)
[2019-09-30] MEDS ORDERED: Naloxone 0.4 MG/ML INJ IVP PRN (05:26)
[2019-09-30] MEDS: Ringers Solution, Lactated 1,000 ML IVC SCH ×2 (05:34→17:27)
[2019-09-30 05:43] LABS: Amphetamine Screen,Urine Positive ng/mL (Cutoff=1000); Barbiturate Screen,Urine Negative ng/mL (Cutoff=200); Benzodiazepines Screen,Urine Positive ng/mL (Cutoff=200); Cannabinoid Screen,Urine Negative ng/mL (Cutoff = 50); Cocaine Screen,Urine Positive ng/mL (Cutoff= 300); Opiate Screen,Urine Negative ng/mL (Cutoff=300); Phencyclidine Screen,Urine Negative ng/mL (Cutoff=25)
[2019-09-30] MEDS: *HR* Heparin 5,000 UNIT/ML VIAL SQ SCH ×2 (06:24→17:27)
[2019-09-30] MEDS: Cefepime HCl 2,000 MG in Water for inj. (sterile) 20 ML IVP SCH (14:46)
[2019-09-30] MEDS: *HR* LORazepam 2 MG/ML VIAL IVP PRN ×2 (20:48→22:30)
[2019-09-30] MEDS: cloNIDine HCl 0.1 MG TABLET PO PRN (20:58)
[2019-09-30] MEDS ORDERED: Haloperidol Lactate 5 MG/ML VIAL IVP ONE (23:35)
[2019-10-01] MEDS ORDERED: *HR* Promethazine 25 MG/ML VIAL IVP ONE ×2 (00:41)
[2019-10-01] MEDS: Cefepime HCl 2,000 MG in Water for inj. (sterile) 20 ML IVP SCH ×2 (01:40→15:16)
[2019-10-01] MEDS ORDERED: *HR* LORazepam 2 MG/ML VIAL IVP ONE (02:09)
[2019-10-01] MEDS: *HR* LORazepam 2 MG/ML VIAL IVP PRN ×2 (04:18→11:45)
[2019-10-01] MEDS: *HR* Heparin 5,000 UNIT/ML VIAL SQ SCH ×2 (07:46→17:44)
[2019-10-01] MEDS: cloNIDine HCl 0.1 MG TABLET PO PRN (11:45)
[2019-10-01] MEDS ORDERED: cefTRIAXone 2,000 MG in Water for inj. (sterile) 20 ML IVP SCH (16:00)
[2019-10-01 19:11] VITALS: BP 138/86
== END 2019-10-01 19:24 | disposition left against medical advice (07) ==
LOC: EMEROOARM 01:02 → 3ANU 01:02 → SUATTDRO 05:37 → 3ANU 06:20
PROVIDERS: ADMIT Internal Medicine; ATTEND Internal Medicine

== ENCOUNTER 2020-02-27 00:29 | Observation (INO) ==
[2020-02-27 01:15] LABS: Basophils % 0.2 %; Eosinophils # 0.1 K/mcL (0.0-0.6); Eosinophils % 1.3 %; Hematocrit 38.5 % (35.3-44.9); Hemoglobin 11.7 g/dL (11.5-15.4); Immature Granulocytes % 0.2 % (0-4); Lymphocytes # 2.5 K/mcL (0.6-4.6); Lymphocytes % 40.1 %; Mean Corpuscular HGB Conc 30.4 g/dL (31.6-35.5); Mean Corpuscular Hemoglobin 26.6 pg (28.0-33.3); Mean Corpuscular Volume 87.5 fL (83.0-100.0); Mean Platelet Volume 11.9 fL (9.4-12.4); Monocytes # 0.4 K/mcL (0.0-1.3); Monocytes % 5.8 %; Neutrophils # 3.3 K/mcL (1.6-8.9); Platelet Count 161 K/mcL (140-400); Red Cell Distribution Width 14.9 % (11.5-14.5); Segmented Neutrophils % 52.4 %; White Blood Count 6.2 K/mcL (4.3-11.1)
[2020-02-27 01:39] LABS: Alanine Aminotransferase 10 Units/L (7-52); Albumin 3.8 g/dL (3.5-5.7); Alkaline Phosphatase 100 Units/L (34-104); Aspartate Amino Transferase 13 Units/L (13-39); BUN/Creatinine Ratio 16 (6-26); Bilirubin,Total 0.3 mg/dL (0.3-1.0); Blood Urea Nitrogen 11 mg/dL (6-20); Calcium 9.1 mg/dL (8.6-10.3); Carbon Dioxide 27 mEq/L (23-29); Chloride 101 mEq/L (98-107); Globulin 3.8 g/dL (2.4-3.5); Glucose 97 mg/dL (70-105); Osmolality,Calculated 277 (280-300); Potassium 3.9 mEq/L (3.5-5.1); Sodium 134 mEq/L (136-145); Total Protein 7.6 g/dL (6.4-8.9); Troponin I < 0.03 ng/mL (< 0.04); eGFR For African Americans > 60 (> 60); eGFR For Non-African Americans > 60 (> 60)
[2020-02-27] MEDS ORDERED: Azithromycin desensitization 1 mg/mL IVP ONE (01:39)
[2020-02-27] MEDS ORDERED: cefTRIAXone 2,000 MG in Water for inj. (sterile) 20 ML IVP ONE (01:39)
[2020-02-27] MEDS ORDERED: 0.9 % Sodium Chloride 1,000 ML IVC STA (01:39)
[2020-02-27] MEDS ORDERED: Azithromycin 500 MG in 0.9 % Sodium Chloride 250 ML IVPB ONE (01:48)
[2020-02-27 02:26] LABS: Bilirubin,Urine Negative (Negative); Blood,Urine Negative (Negative); Clarity,Urine Cloudy (Clear); Color,Urine Yellow (Yellow); Glucose,Urine (UA) Normal (Normal); Ketones,Urine Negative (Negative); Leukocyte Esterase,Urine Small (Negative); Nitrite,Urine Negative (Negative); PH,Urine 6.5 pH Units (5.0-8.0); Protein,Urine Negative (Neg-Trace); Specific Gravity,Urine 1.008 (1.010-1.025); Urobilinogen,Urine Normal (Normal)
[2020-02-27 02:30] LABS: Bacteria,Urine Many per hpf (None-Few); Hyaline Casts,Urine None Seen per lpf (None-Few); RBC,Urine 0-3 per hpf (0-3); Squamous Epithelial Cell,Urine Many per lpf (None-Few)
[2020-02-27] MEDS ORDERED: Ondansetron 4 MG/2 ML VIAL IVP PRN (03:31)
[2020-02-27] MEDS ORDERED: Naloxone 0.4 MG/ML INJ IVP PRN (03:31)
[2020-02-27 05:02] LABS: C-Reactive Protein 25 mg/L (Less than 10); Lactate Dehydrogenase 110 Units/L (140-271)
[2020-02-27 05:21] LABS: Ferritin 110 ng/mL (10-120)
[2020-02-27] MEDS ORDERED: *HR* Heparin 5,000 UNIT/ML VIAL SQ SCH (06:00)
[2020-02-27] MEDS ORDERED: Piperacillin/Tazobactam 3.375 GM in 0.9 % Sodium Chloride Mini Bag 100 ML IVPB SCH (08:00)
[2020-02-27] MEDS ORDERED: Nicotine 21 MG PATCH.TD24 TD SCH (09:00)
[2020-02-27 14:32] VITALS: BP 106/67
[2020-02-27] MEDS ORDERED: Aminoglycoside Consult 1 EACH MC ONE (14:45)
== END 2020-02-27 14:46 | disposition left against medical advice (07) ==
LOC: 2NNU 00:29 → EMEROOARM 00:29 → SUATTDRO 02:58 → 2NNU 03:29
PROVIDERS: ADMIT Internal Medicine; ATTEND Internal Medicine